=== PATIENT | female | born 1960 | race Caucasian/White ===

== ENCOUNTER 2018-11-13 00:25 | Inpatient (IN) ==
[2018-11-13 01:00] LABS: BILIRUBIN URINE NEGATIVE (NEGATIVE); BLOOD URINE 4+ (NEGATIVE); CLARITY SL. CLOUDY (CLEAR); COLOR AMBER; GLUCOSE URINE NEGATIVE (NEGATIVE); KETONE URINE 2+(Moderate) mg/dL (NEGATIVE); LEUKOCYTES URINE TRACE (NEGATIVE); NITRITE URINE NEGATIVE (NEGATIVE); UROBILINOGEN URINE 1 mg/dL
[2018-11-13 01:02] LABS: UR AMPHETAMINES QUAL NONE DETECTED (NONE DETECT); UR BARBITUATES QUAL NONE DETECTED (NONE DETECT); UR BENZODIAZEPIN QUAL PRESUMPTIVE POSITIVE (NONE DETECT); UR CANNABINOIDS QUAL NONE DETECTED (NONE DETECT); UR COCAINE QUAL NONE DETECTED (NONE DETECT); UR METHADONE QUAL NONE DETECTED (NONE DETECT); UR METHAMPHETAMINE QUAL NONE DETECTED (NONE DETECT); UR OPIATES QUAL NONE DETECTED (NONE DETECT); UR OXYCODONE QUAL NONE DETECTED (NONE DETECT); UR PCP QUAL NONE DETECTED (NONE DETECT); UR PROPOXYPHENE QUAL NONE DETECTED (NONE DETECT); UR TCA QUAL NONE DETECTED (NONE DETECT)
[2018-11-13 01:03] LABS: BE 17.6 mmoll (-3.0-3.0); BLOOD TYPE ARTERIAL; HCO3-(ACT) 38.6 mmoll (20.0-26.0); METHB 0.7 % (0.0-1.5); O2(CT) 17.9 mL/dL (15.0-23.0); O2HB 96.7 % (95.0-99.0); PCO2(98.6) 36 mmHg (35-45); PO2(98.6) 211 mmHg (60-100); SAMPLE BLOOD; THB 12.8 g/dL (11.5-17.4)
[2018-11-13 01:05] LABS: ALLEN TEST YES; MODALITY NRB; pH(98.6) 7.65 (7.35-7.45)
[2018-11-13 01:17] LABS: URINE RBC TNTC /HPF (<10)
[2018-11-13 01:18] LABS: URINE BACTERIA 4+ /HFP; URINE EPITHELIAL CELLS <10 /HPF (<10); URINE SOURCE CATH; URINE WBC <10 /HPF (<10)
[2018-11-13 02:26] LABS: BASO# 0.02 X1000 (0.0-0.2); BASO% 0.1 % (0.0-0.8); EOS# 0.05 X1000 (0.0-0.7); EOS% 0.3 % (0.0-10.0); HEMATOCRIT 44.4 % (37.0-47.0); HEMOGLOBIN 14.1 g/dL (12.0-16.0); IMM GRAN# 0.08 X1000 (0.0-0.04); IMM GRAN% 0.4 % (0.0-0.5); LYMPH# 1.65 X1000 (1.2-3.4); MCH 27.4 PG (27-31); MCHC 31.8 g/dL (33-37); MCV 86.4 FL (81-99); MONO# 1.72 X1000 (0.11-0.59); MONO% 9.3 % (1.7-9.3); MPV 10.9 FL (7.4-10.4); NEUT# 14.88 X1000 (1.4-6.5); NEUT% 80.9 % (42.2-75.2); PLT 242 X1000 (130-400); RBC 5.14 XMIL (4.2-5.4); RDW 13.3 % (11.5-14.5)
[2018-11-13 02:53] LABS: AGAP 21; ALBUMIN 4.5 g/dL (3.5-5.0); ALKALINE PHOSPHATASE 149 U/L (32-104); BUN 36 mg/dL (8-22); CHLORIDE 88 mmol/L (98-107); CK TOTAL 875 U/L (24-173); COSMO 290; CREATININE 0.8 mg/dL (0.5-0.9); GLUCOSE 143 mg/dL (70-104); GOT 30 U/L (10-30); GPT 13 U/L (10-36); POTASSIUM 3.3 mmol/L (3.5-5.1); SODIUM 140 mmol/L (136-145); TCO2 31 mmol/L (25-35); TOTAL PROTEIN 8.4 g/dL (6.3-8.3)
[2018-11-13] MEDS ORDERED: NS 1,000 ML IV ONE ×2 (03:39→12:44)
[2018-11-13] MEDS ORDERED: ROCEPHIN 2 GM in NS 50 ML IV ONE (05:20)
[2018-11-13] MEDS ORDERED: ROCEPHIN ONE (05:43)
[2018-11-13] MEDS ORDERED: NS 100 ML ONE (05:45)
--- NOTE | 2018-11-13 05:58 | Diag Imaging Result Doc PS360 ---
EXAM: CT HEAD W/O CONTRAST HISTORY: unresponsive TECHNIQUE: CT head without contrast COMPARISON: None. FINDINGS: No parenchymal hemorrhage. No epidural or subdural hematoma. No subarachnoid hemorrhage. There is minimal atrophy. No mass identified on this noncontrasted exam. No hydrocephalus. No sinus opacification. Minimal left posterior scalp soft tissue swelling. IMPRESSION: Small left scalp hematoma, but no intracranial injury. A preliminary report was given at 12:50 AM This exam was performed using automated exposure control, adjustment of mA or kV according to patient size, and/or use of iterative reconstruction technique. Electronically signed by Mike Crowder 11/13/2018 5:56 AM
--- NOTE | 2018-11-13 06:03 | Diag Imaging Result Doc PS360 ---
EXAM: CHEST-PORTABLE HISTORY: ams - found down TECHNIQUE: Chest single view COMPARISON: None. FINDINGS: The lungs are well expanded. The heart is not enlarged. There is a left-sided portacatheter. No pneumothorax. The vessels are not distended. There are no infiltrates. No effusion identified. There are surgical clips in the right axilla. No lung nodules identified. There has been surgery to the lower neck. IMPRESSION: No acute abnormality. Electronically signed by Mike Crowder 11/13/2018 6:01 AM
--- NOTE | 2018-11-13 06:08 | PROVIDER DOCUMENTATION ---
This chart was entered by Clarissa Miranda Scribe, acting as scribe for Jayro Orantes MD. HPI-General Adult - General Stated Complaint: UNRESPONSIVE Time Seen by Provider: 11/13/18 00:30 Source: EMS Unable to obtain history due to:: urgency - History of Present Illness -Gen Adult Nature of Presenting Problems: pt is a 61 yr old female presenting via EMS, EMS was called when pt was found unresponsive in the floor by a neighbor, enroute to ER EMS reports pt was having seizure. upon arrival to ER pt is minimally responsive to painful stimuli , no verbal or eye opening response. pt unable to provide any information, no family with pt Onset/Duration: reports: unsure Timing: reports: still present Review of Systems - Adult - REVIEW OF SYSTEMS - ADULT ROS:: unobtainable per condition Constitutional: reports: no symptoms reported Eyes: reports: no symptoms reported Ears, Nose, Mouth & Throat: reports: no symptoms reported Cardiovascular: reports: no symptoms reported Respiratory: reports: no symptoms reported Gastrointestinal: reports: no symptoms reported Genitourinary: reports: no symptoms reported Musculoskeletal: reports: no symptoms reported Integumentary: reports: no symptoms reported Neurological: reports: no symptoms reported Psychiatric: reports: no symptoms reported Endocrine: reports: no symptoms reported Hematologic/Lymphatic: reports: no symptoms reported Allergic/Immunologic: reports: no symptoms reported All Other Systems: Reviewed and Negative Past History - Adult - PAST MEDICAL HISTORY-ADULT Review of Records: reports: Nursing Assessment Review Major Childhood Illnesses: reports: denies history Cardiovascular: reports: denies history Respiratory: reports: denies history Gastrointestinal: reports: denies history Obstetrical/Gynecological: reports: denies history Genitourinary: reports: denies history Musculoskeletal: reports: denies history Neurological: reports: denies history Endocrine/Immune: reports: denies history Other Conditions: reports: denies history - IMMUNIZATION STATUS Childhood Immunizations: See Nurse Assessment Flu Vaccine: See Nurse Assessment - FAMILY HISTORY Family History: reviewed, not pertinent - SOCIAL HISTORY Living Situation: alone Physical Exam-General - PHYSICAL EXAM-ADULT Exam Limited by: unresponsive Initial Vital Signs Reviewed: Yes - CONSTITUTIONAL General Appearance: appears well, mild distress, slow to respond - EYES Eyes: PERRL/EOMI (both pupils are dilated and with right lateral gaze) - HEAD, EARS, NOSE, MOUTH & THROAT HENMT: normocephalic/atraumatic, moist mucous membranes, normal ENT inspection - NECK Neck: non-tender, full range of motion, supple - RESPIRATORY Respiratory: chest non-tender, lungs clear, normal breath sounds, no pleuratic chest pain - CARDIOVASCULAR Cardiovascular: normal peripheral pulses, regular rate, rhythm, no edema, no gallop, no JVD - CHEST (BREASTS) Chest/Breast: other (Bilateral mastectomies) - GASTROINTESTINAL (ABDOMEN) Abdominal Exam: non tender - MUSCULOSKELETAL Back Exam: normal inspection, no CVA tenderness Extremity: normal range of motion, non-tender - SKIN Integumentary: normal color, normal turgor - NEUROLOGIC Neurologic: other (unable to cooperate with exam but seems rigid and is obviouly febrile, moves all 4s) - PSYCHIATRIC Psych/Mental Status: disheveled. negative: normal mood/affect, normal thought content, normal thought process, oriented x 3 Progress - PLAN OF CARE/RESULTS Progress/Plan/Lab Results: Vital Signs - 8 hr 11/13/18 00:20 Temperature 101.3 F H Pulse Rate 89 Respiratory Rate 25 H Blood Pressure 154/88 O2 Sat by Pulse Oximetry 100 Laboratory Results - last 24 hr 11/13/18 11/13/18 11/13/18 00:07 00:20 00:20 WBC RBC Hgb Hct MCV MCH MCHC RDW Std Deviation Plt Count MPV Immature Gran % (Auto) Neut % (Auto) Lymph % (Auto) [place] % (Auto) Eos % (Auto) Baso % (Auto) Immature Gran # (Auto) Neut # (Auto) Lymph # (Auto) [place] # (Auto) Eos # (Auto) Baso # (Auto) Specimen Type ARTERIAL Sample Site L RADIAL pH 7.65 H* pCO2 36 pO2 211 H HCO3 38.6 H Base Excess 17.6 H Oxyhemoglobin 96.7 ABG O2 Sat (Calculated) 17.9 ABG O2 Saturation 98.0 ABG Carboxyhemoglobin 0.60 ABG Methemoglobin 0.7 [place] Test YES A-a O2 Difference 457.0 Total Hemoglobin 12.8 Lactate 2.30 H Liter Flow 15.0 Blood Gas Modality NRB FiO2 % 100.0 Sodium Potassium Chloride Carbon Dioxide Anion Gap BUN Creatinine BUN/Creatinine Ratio Glucose Calculated Osmolality Calcium Total Bilirubin AST ALT Alkaline Phosphatase Creatine Kinase Total Protein Albumin Globulin Albumin/Globulin Ratio Urine Source CATH Urine Color ARIEL Urine Clarity SL. CLOUDY A Urine pH 8.0 Ur Specific [place] 1.010 Urine Protein 3+(500 mg/dL) A Urine Ketones 2+(Moderate) A Urine Blood 4+ Urine Nitrite NEGATIVE Urine Bilirubin NEGATIVE Urine Urobilinogen 1 Urine Microscopic RBC TNTC A Urine WBC TRACE A Urine Microscopic WBC <10 Ur Epithelial Cells <10 Urine Bacteria 4+ Urine Glucose NEGATIVE Urine Opiates Screen NONE DETECTED Ur Oxycodone Screen NONE DETECTED Urine Methadone Screen NONE DETECTED U Propoxyphene Qual NONE DETECTED Ur Barbituates Screen NONE DETECTED Ur Tricyclics Screen NONE DETECTED Ur Phencyclidine Scrn NONE DETECTED Ur Amphetamines Screen NONE DETECTED U Methamphetamines Scrn NONE DETECTED U Benzodiazepines Scrn PRESUMPTIVE POSITIVE A Urine Cocaine Screen NONE DETECTED U Cannabinoids Screen NONE DETECTED 11/13/18 11/13/18 01:08 01:08 WBC 18.40 H RBC 5.14 Hgb 14.1 Hct 44.4 MCV 86.4 MCH 27.4 MCHC 31.8 L RDW Std Deviation 13.3 Plt Count 242 MPV 10.9 H Immature Gran % (Auto) 0.4 Neut % (Auto) 80.9 H Lymph % (Auto) 9.[address] % (Auto) 9.3 Eos % (Auto) 0.3 Baso % (Auto) 0.1 Immature Gran # (Auto) 0.08 H Neut # (Auto) 14.88 H Lymph # (Auto) 1.65 [place] # (Auto) 1.72 H Eos # (Auto) 0.05 Baso # (Auto) 0.02 Specimen Type Sample Site pH pCO2 pO2 HCO3 Base Excess Oxyhemoglobin ABG O2 Sat (Calculated) ABG O2 Saturation ABG Carboxyhemoglobin ABG Methemoglobin [place] Test A-a O2 Difference Total Hemoglobin Lactate Liter Flow Blood Gas Modality FiO2 % Sodium 140 Potassium 3.3 L Chloride 88 L Carbon Dioxide 31 Anion Gap 21 BUN 36 H Creatinine 0.8 BUN/Creatinine Ratio 45 Glucose 143 H Calculated Osmolality 290 Calcium 11.0 H Total Bilirubin 0.60 AST 30 ALT 13 Alkaline Phosphatase 149 H Creatine Kinase 875 H Total Protein 8.4 H Albumin 4.5 Globulin 4.0 Albumin/Globulin Ratio 1.0 Urine Source Urine Color Urine Clarity Urine pH Ur Specific [place] Urine Protein Urine Ketones Urine Blood Urine Nitrite Urine Bilirubin Urine Urobilinogen Urine Microscopic RBC Urine WBC Urine Microscopic WBC Ur Epithelial Cells Urine Bacteria Urine Glucose Urine Opiates Screen Ur Oxycodone Screen Urine Methadone Screen U Propoxyphene Qual Ur Barbituates Screen Ur Tricyclics Screen Ur Phencyclidine Scrn Ur Amphetamines Screen U Methamphetamines Scrn U Benzodiazepines Scrn Urine Cocaine Screen U Cannabinoids Screen Orders Category Date Time Status [facility] Insertion ORDERED Care 11/13/18 00:26 Active Saline Loc NOW Care 11/13/18 00:26 Active CHEST-PORTABLE [RAD] Stat Exams 11/13/18 01:[address] HEAD W/O CONTRAST [CT] Stat Exams 11/13/18 00:25 Taken ABG [RESP] Routine Lab 11/13/18 00:07 Completed CBC WITH DIFF [HEME] Stat Lab 11/13/18 01:08 Completed CK TOTAL [CHEM] Stat Lab 11/13/18 01:08 Completed COMPREHENSIVE METABOLIC PANEL [CHEM] Stat Lab 11/13/18 01:[address] W/POSS RFLX CULT [URINALYSIS] Stat Lab 11/13/18 00:20 Completed URINE CULTURE [RM] Routine Lab 11/13/18 01:18 [address] DRUG SCREEN [address] Stat Lab 11/13/18 00:20 Completed Result Diagrams: 11/13/18 01:08 11/13/18 01:08 - CONSULTS/PCP/HOSPITALIST Notification #1 *Consult/PCP/Hospitalist*: Dr Zimmer Consult Disposition: Admit Procedures - LUMBAR PUNCTURE Consent Form Signed?: No Time-Out Verification Completed?: Yes Patient Position: Lying in position Insertion Site: L4-5 Site Prep: Kit Utilized, Betadine Anesthetic: 1% Procedure Successful?: No Departure - Departure Date of Disposition Decision: 11/13/18 Time of Disposition Decision: 06:06 DIAGNOSIS: Altered mental state Disposition: ADMITTED INPATIENT 09 Certified Medical Emergency: Emergent Condition: Serious Referrals and Follow-Ups: UNKNOWN, [Primary Care Provider] - - Critical Care Note This patient required my direct & personal management of CC.: Yes Total Time (mins): 90 Critical Care Statement: This patient required my direct personal management to treat or rule out processes, the absence of which, could potentiallly result in sudden, clinically significant life or limb threatening deterioration. Attestation - Physician/ LINDSEY Attestation The physician spent face to face time with patient:: Yes Advanced Practice Provider documentation review:: Supervising physician onsite and consulted in the evaluation and care of this patient. The physician did have a face to face encounter with the patient. This chart was documented by the indicated scribe, (Clarissa Miranda Scribe) and accurately reflects the services I performed and decisions made by me, Jayro Orantes MD, as attested by the provider's signature.
[2018-11-13] MEDS ORDERED: TYLENOL PR ONE (07:45)
[2018-11-13] MEDS ORDERED: VANCOMYCIN IV PER PHARMACY MISC SCH (08:45)
[2018-11-13] MEDS ORDERED: VANCOMYCIN 1 GM/NS 1 GM/250 ML IVPB IV ONE ×2 (09:00→12:00)
[2018-11-13] MEDS ORDERED: ATIVAN IV ONE ×2 (09:15→09:35)
[2018-11-13] MEDS ORDERED: OFIRMEV 1000 MG/ISOTONIC SOLN 1,000 MG/100 ML BOTTLE IV PRN (09:34)
[2018-11-13] MEDS ORDERED: MAXIPIME 2 GM in NS 100 ML IV SCH (09:45)
--- NOTE | 2018-11-13 11:36 | Diag Imaging Result Doc PS360 ---
EXAM: LUMBAR PUNCT W/FLURO GUIDE HISTORY: unresponsive TECHNIQUE: Fluoroscopic guided lumbar puncture COMPARISON: None. FINDINGS: Patient was unresponsive and unable to give consent. The emergency room indicated this was an emergency procedure and needed to be performed. The lower back was cleaned and draped in the normal fashion. Lidocaine was used as a local anesthetic. A 22-gauge spinal needle was advanced into the spinal canal. Four separate tubes were used to collect spinal fluid. Over a centimeter of spinal fluid was in each tube. These were sent to the laboratory for analysis. The needle was withdrawn. IMPRESSION: Emergency fluoroscopic guided lumbar puncture with no immediate postprocedural complication. Electronically signed by Mike Crowder 11/13/2018 11:34 AM
[2018-11-13] MEDS: NS 1,000 ML IV SCH (13:00)
--- NOTE | 2018-11-13 13:30 | HISTORY AND PHYSICAL ---
CHIEF COMPLAINT: Unresponsive and seizure. HISTORY OF PRESENT ILLNESS: This is a 58-year-old female who presented to the emergency room via EMS. According to the chart, the patient was found unresponsive on the floor. Therefore, EMS was called. She reportedly had a tonic-clonic seizure per ambulance personnel en route to the hospital. At the time of arrival to the ER, she was in a position on her right side. Medicine bottles were brought in with the patient that were filled at the [facility] in 2014. She had Phenergan and Arimidex. There are no family or friends present at this time. PAST MEDICAL HISTORY: Unknown. PAST SURGICAL HISTORY: She has had bilateral mastectomies. She has had a left port placement and surgery to the lower neck per chest x-ray. ALLERGIES: Unknown. HOME MEDICATIONS: Unknown. SOCIAL HISTORY: Unknown. REVIEW OF SYSTEMS: Unable to obtain. HOME MEDICATIONS: Unknown. PHYSICAL EXAMINATION: GENERAL: This is a female who is lying flat on her right side in the emergency room in no distress. EYES: Pupils are dilated with a right lateral gaze. She does not respond to visual threats. Sclerae are anicteric. HEENT: Head is normocephalic, atraumatic. Mucous membranes are moist. NECK: Supple with trachea midline. CARDIOVASCULAR: She is regular rate and rhythm. S1 and S2 are appreciated. No murmurs. She does have peripheral pulses palpable x4 extremities. PULMONARY: Breath sounds are clear with no increased work of breathing noted. Chest rises and falls symmetrically with respiration. ABDOMEN: Nondistended. Soft with bowel sounds in all 4 quadrants. SKIN: Warm and dry. She has bruises noted to her bilateral knees. She does have some abrasions to the top of both feet just above her toes with redness to her right elbow area and to the tops of both hands. She does have an incision on her chest and bilateral mastectomies are noted. There are no rashes noted at this time. NEUROLOGIC: The pupils are dilated with a right lateral gaze. She does not respond to visual or tactile threat. She is lying on her right side in a position. She does draw into a tighter position to pain or any manipulation. LABORATORY: 1. WBC is 18.4 with a hemoglobin 14.1, hematocrit 44.4, and platelets 242,000. Sodium is 140, potassium 3.3, BUN 36, creatinine 0.8 with a glucose of 143. Alkaline phosphatase is 149. CPK is 875. Urinalysis is positive for 3+ protein, 2+ ketones, 4+ blood, too numerous to count red blood cells, less than 10 microscopic white blood cells and epithelial cells. She does have 4+ bacteria. Urine culture is pending. Urine drug screen is presumptive positive for benzodiazepines. Blood cultures and urine cultures have been obtained. 2. CT of the head reveals a small left scalp hematoma but no intracranial injury. No parenchymal hemorrhage no epidural or subdural hematoma. No subarachnoid hemorrhage. There is minimal atrophy. No mass is identified on this noncontrast exam. No hydrocephalus. No sinus opacification. Minimal left posterior scalp soft tissue swelling. 3. Chest x-ray revealed no acute abnormality. Lungs are well expanded. Heart is not enlarged. There is a left-sided Port-A-Cath. No pneumothorax. Vessels are not distended. There are no infiltrates. No effusion identified. There are surgical clips in the right axilla. No lung nodules identified. There has been surgery to the lower neck. ASSESSMENT AND PLAN: 1. Unresponsive. 2. Metabolic encephalopathy. 3. Fever. 4. Leukocytosis. 5. Hypokalemia. 6. Mild rhabdomyolysis. 7. Hyperkalemia. PLAN: The patient will be admitted to ICU at [place]. She will be transferred to [facility] ICU once a bed becomes available. We will continue to give supplemental oxygen. We will monitor neuro checks. We will monitor telemetry. I have discussed the patient with DR. Lukas Sinha, Infectious Disease. We will give vancomycin dosed per pharmacy as well as cefepime 2 g IV q.8 hours. We will order a lumbar puncture under fluoro with Radiology. We will monitor for seizure precautions. We will order Ativan p.r.n. seizure activity. We will consult Neurology. We will obtain a CBC, CMP, magnesium in the morning. Of course, she will remain NPO. We will attempt to find any further information out on this patient. Medication bottles were from the [facility]. We will attempt to call their pharmacy. Further treatments pending hospital course. Dictated by RAY Morales for Wes Hunt MD This chart was documented by, RAY Morales and accurately reflects the services performed, treatment plan and medical decisions as attested by the providers signature Wes Hunt MD. cc: RAY Morales MD
[2018-11-13] MEDS: MAXIPIME 2 GM in NS 100 ML IV SCH ×2 (14:05→22:58)
[2018-11-13] MEDS: PROTONIX IV SCH (14:09)
[2018-11-13 15:23] LABS: APPEARANCE CLEAR
[2018-11-13 15:24] LABS: GLUCOSE CSF 94 mg/dL (39-75); PROTEIN CSF 49.2 mg/dL (15-45)
[2018-11-13 15:36] LABS: RBC BF 186 /cumm; WBC BF 3 /cumm
[2018-11-13 16:05] LABS: BASO# 0.01 X1000 (0.0-0.2); BASO% 0.1 % (0.0-0.8); HEMATOCRIT 35.1 % (37.0-47.0); IMM GRAN# 0.06 X1000 (0.0-0.04); IMM GRAN% 0.4 % (0.0-0.5); LYMPH# 1.88 X1000 (1.2-3.4); MCH 27.8 PG (27-31); MCHC 31.3 g/dL (33-37); MCV 88.6 FL (81-99); MONO# 1.56 X1000 (0.11-0.59); MONO% 9.9 % (1.7-9.3); MPV 9.9 FL (7.4-10.4); NEUT# 12.17 X1000 (1.4-6.5); NEUT% 77.6 % (42.2-75.2); PLT 191 X1000 (130-400); RBC 3.96 XMIL (4.2-5.4); RDW 13.2 % (11.5-14.5); WBC 15.68 X1000 (4.8-10.8)
[2018-11-13 16:11] LABS: AGAP 12; ALBUMIN 3.5 g/dL (3.5-5.0); ALKALINE PHOSPHATASE 111 U/L (32-104); BUN 29 mg/dL (8-22); CHLORIDE 96 mmol/L (98-107); COSMO 285; CREATININE 0.6 mg/dL (0.5-0.9); ESTIMATED GFR > 60; GLUCOSE 134 mg/dL (70-104); GOT 53 U/L (10-30); GPT 17 U/L (10-36); POTASSIUM 3.3 mmol/L (3.5-5.1); SODIUM 139 mmol/L (136-145); TCO2 31 mmol/L (25-35); TOTAL PROTEIN 6.7 g/dL (6.3-8.3)
[2018-11-13] MEDS ORDERED: CEREBYX IV ONE (17:07)
[2018-11-13] MEDS ORDERED: CEREBYX 1,500 MG in NS 100 ML IV ONE (18:00)
[2018-11-13] MEDS: HUMALOG (PARKWAY) SUBQ SCH ×2 (18:33→21:41)
--- NOTE | 2018-11-13 18:54 | CONSULTATION ---
DATE OF CONSULTATION: 11/13/2018 HISTORY: Ms. Fuchs is 58 years old, and she presented with altered mental state. By report, she was found down, brought by ambulance, and had seizure witnessed and recognized by ambulance personnel in route to the hospital. On arrival here, she was noted to be on the right side with a right gaze. She has continued very poorly responsive and has not spoken or communicated directly. She has not had any further definite clinical seizure recognized. Workup includes noncontrast CT of the head showing small left scalp hematoma with no intracranial findings. Urine drug screen was positive for benzodiazepine. WBC count has been elevated. She has had mildly elevated blood sugars of 130s and 140s. I do not see anything else on the chemistry profile of significance. Spinal fluid showed glucose 94, total protein 49.2, 3 white cells, and 186 red cells. Opening pressure was not recorded. Spinal fluid gram stain report is pending. There is prominent bacteriuria and pyuria with urine culture report pending. She had temperature earlier of 101.4, and recently 99.2. Systolic blood pressures have ranged 140s to 150s. Review of hospital records show she has presented in the past with confusion. She had presentation with respiratory failure in the past. She has previous bilateral mastectomies. PHYSICAL EXAMINATION: On exam now, she is in the right position. Eyes are alternating between straight-ahead and right conjugate gaze. I did not see any rhythmic eye jerking. Limb tone is symmetric. Plantar response is extensor bilaterally. Neck is supple. She grumbled and grunted in response to noxious stimulation but did not speak. She did not communicate beyond that. She did not answer questions or follow commands. Pupils are large at about 6 mm and both react to bright light. Corneal reflex is difficult to security auditor with her vigorous attempt to keep eyes closed, but I believe there is corneal reflex bilaterally. Facial motility is difficult to security auditor, but grimace appears symmetric. She was not attentive to visual field testing or to sensory testing. She was not attentive to individual limb or muscle exam. 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 I will order EEG and empirically load with fosphenytoin. We can follow phenytoin levels and adjust dose as needed. The EEG will be helpful when available. I do not think we need any further brain imaging urgently. Further plans will depend on the CSF culture reports and on her clinical course. Thanks for asking Neurology to see Ms. Fuchs. cc: MD DMITRY Short III
--- NOTE | 2018-11-14 00:33 | HISTORY AND PHYSICAL ---
ADDENDUM: Patient seen and examined by myself in the ER. Full note dictated and discussed with nurse practitioner. Initially, the patient presented to the hospital. She presented as a Leticia Leiva. EMS was called by an unknown source. We will obtain a lumbar puncture, place her on antibiotics, treat for infectious etiology, place her in the ICU, and follow. Certainly, this could also be drug-related. We will monitor for withdrawal. cc: Wes Hunt MD
[2018-11-14] MEDS: NS 1,000 ML IV SCH ×3 (03:08→23:06)
[2018-11-14] MEDS: PROTONIX IV SCH ×2 (03:09→14:10)
[2018-11-14] MEDS ORDERED: ROCEPHIN 2 GM in NS 50 ML IV SCH (06:00)
[2018-11-14] MEDS: VANCOMYCIN 1,500 MG in NS 250 ML IV SCH (06:18)
[2018-11-14] MEDS: MAXIPIME 2 GM in NS 100 ML IV SCH ×3 (06:18→21:08)
[2018-11-14 06:50] LABS: BASO# 0.02 X1000 (0.0-0.2); BASO% 0.2 % (0.0-0.8); EOS# 0.02 X1000 (0.0-0.7); EOS% 0.2 % (0.0-10.0); HEMATOCRIT 32.3 % (37.0-47.0); HEMOGLOBIN 9.7 g/dL (12.0-16.0); IMM GRAN# 0.04 X1000 (0.0-0.04); IMM GRAN% 0.3 % (0.0-0.5); LYMPH# 2.29 X1000 (1.2-3.4); LYMPH% 18.1 % (20.5-51.1); MCH 26.9 PG (27-31); MCV 89.7 FL (81-99); MONO# 1.39 X1000 (0.11-0.59); MPV 10.5 FL (7.4-10.4); NEUT# 8.89 X1000 (1.4-6.5); NEUT% 70.2 % (42.2-75.2); PLT 174 X1000 (130-400); RDW 13.3 % (11.5-14.5); WBC 12.65 X1000 (4.8-10.8)
[2018-11-14 07:05] LABS: AGAP 10; ALBUMIN 3.3 g/dL (3.5-5.0); ALKALINE PHOSPHATASE 94 U/L (32-104); BUN 24 mg/dL (8-22); CALCIUM 8.8 mg/dL (8.8-10.2); CHLORIDE 102 mmol/L (98-107); COSMO 287; CREATININE 0.6 mg/dL (0.5-0.9); ESTIMATED GFR > 60; GLUCOSE 102 mg/dL (70-104); GOT 47 U/L (10-30); GPT 17 U/L (10-36); MAGNESIUM 1.6 mg/dL (1.5-2.7); POTASSIUM 3.1 mmol/L (3.5-5.1); SODIUM 142 mmol/L (136-145); TCO2 30 mmol/L (25-35); TOTAL PROTEIN 6.1 g/dL (6.3-8.3)
[2018-11-14] MEDS: HUMALOG (PARKWAY) SUBQ SCH ×4 (07:20→20:00)
[2018-11-14] MEDS ORDERED: CEREBYX IV SCH (10:30)
[2018-11-14] MEDS: CEREBYX IV SCH ×2 (10:50→23:00)
[2018-11-14] MEDS: NS IV SCH ×2 (10:50→23:00)
[2018-11-14] MEDS: ZOFRAN IV PRN (10:57)
--- NOTE | 2018-11-14 11:37 | EEG REPORT ---
DATE: 11/13/2018 EEG #: [id number]. COMMENT: This is a digitally recorded EEG on a 58-year-old patient with poor responsiveness, clinically apparent seizure yesterday with possible left hemisphere features. FINDINGS: This record is composed of polymorphic and rhythmic theta and delta. There is occasional 7 Hz rhythm centrally and posteriorly, which is not well sustained. Most of the record is 4-6 hertz theta. There is slowing into the delta range at 2-3 hertz with highest amplitude frontally. There is occasional muscle contraction artifact which does not hinder interpretation. No definite epileptiform discharge was identified, and there was no electrographic seizure recorded. INTERPRETATION: Abnormal EEG because of generalized slowing. CORRELATION: This is indicative of a diffuse encephalopathy and is nonspecific. The absence of epileptiform discharges on EEG today does not exclude clinical diagnosis of seizure yesterday. cc: Bernard Patel III, MD
[2018-11-14] MEDS: SODIUM CHLORIDE 0.9% INJ SCH (14:10)
--- NOTE | 2018-11-14 18:20 | PROGRESS NOTE ---
DATE: 11/14/2018 Ms. Fuchs is awake, alert, having appropriate conversation. She is at least partially oriented. She answered questions appropriately. She seems uncertain about several of her home medications, but is adamant that she has not had any benzodiazepines. She is certain that she has not misused medicines. She reports having a question of seizure a few years ago, but does not report taking medicine for seizure management then. Her phenytoin levels have been low in therapeutic range here, but she seems clinically stable and improved. I think we can continue current doses, follow levels, hope to see continued improvement. I told her I think we will likely recommend continuing medicine for seizure control after discharge. I will be glad to follow her as an outpatient, if needed. Thanks for asking Neurology to see Ms. Fuchs. cc: Bernard Patel III, MD
[2018-11-14] MEDS: TYLENOL PO PRN (20:06)
[2018-11-15] MEDS: PROTONIX IV SCH ×2 (01:16→13:53)
[2018-11-15] MEDS: VANCOMYCIN 1,500 MG in NS 250 ML IV SCH ×2 (01:16→18:52)
[2018-11-15] MEDS: SODIUM CHLORIDE 0.9% INJ SCH ×2 (01:17→13:53)
--- NOTE | 2018-11-15 01:17 | PROGRESS NOTE ---
DATE: 11/14/2018 SUBJECTIVE: Patient is still unresponsive. She is calm. PHYSICAL EXAMINATION: Vital Signs: Temperature 98.9 degrees, pulse 70, respiratory 20, BP 114/48, saturation 97% on 3 L. General: She is in no current distress. HEENT: Normocephalic. Neck: Supple. CARDIOVASCULAR: Regular rate. Chest: Clear. No crackles. Abdomen: Normal. Extremities: Moves all extremities. No edema. Neurologic: No focal changes. She still does not respond to verbal stimuli. ASSESSMENT: 1. Leukocytosis. 2. Acute delirium of unknown origin. 3. Metabolic encephalopathy. 4. Fever. 5. Hypokalemia. PLAN: We will continue patient in the hospital. She is waking up a little bit better. She was able to speak to the staff in 1 to 2 words last night. We will continue to follow. Continue antibiotics. Further orders as needed. cc: Wes Hunt MD
[2018-11-15 05:48] LABS: BASO# 0.02 X1000 (0.0-0.2); BASO% 0.2 % (0.0-0.8); EOS# 0.14 X1000 (0.0-0.7); EOS% 1.6 % (0.0-10.0); HEMATOCRIT 28.2 % (37.0-47.0); HEMOGLOBIN 8.8 g/dL (12.0-16.0); IMM GRAN# 0.02 X1000 (0.0-0.04); IMM GRAN% 0.2 % (0.0-0.5); LYMPH# 2.02 X1000 (1.2-3.4); LYMPH% 22.6 % (20.5-51.1); MCH 27.9 PG (27-31); MCHC 31.2 g/dL (33-37); MCV 89.5 FL (81-99); MONO# 0.76 X1000 (0.11-0.59); MONO% 8.5 % (1.7-9.3); MPV 10.2 FL (7.4-10.4); NEUT# 5.96 X1000 (1.4-6.5); NEUT% 66.9 % (42.2-75.2); PLT 147 X1000 (130-400); RBC 3.15 XMIL (4.2-5.4); RDW 12.9 % (11.5-14.5); WBC 8.92 X1000 (4.8-10.8)
[2018-11-15 06:07] LABS: AGAP 9; BUN 19 mg/dL (8-22); CALCIUM 8.5 mg/dL (8.8-10.2); CHLORIDE 105 mmol/L (98-107); COSMO 282; CREATININE 0.5 mg/dL (0.5-0.9); ESTIMATED GFR > 60; GLUCOSE 77 mg/dL (70-104); POTASSIUM 3.1 mmol/L (3.5-5.1); SODIUM 141 mmol/L (136-145); TCO2 27 mmol/L (25-35)
[2018-11-15] MEDS: MAXIPIME 2 GM in NS 100 ML IV SCH ×3 (06:23→22:46)
[2018-11-15] MEDS ORDERED: KLOR-CON PO ONE (06:39)
[2018-11-15] MEDS: HUMALOG (PARKWAY) SUBQ SCH ×4 (07:27→20:40)
[2018-11-15] MEDS: CEREBYX IV SCH ×2 (10:36→23:33)
[2018-11-15] MEDS: NS 1,000 ML IV SCH ×2 (10:36→18:12)
[2018-11-15] MEDS: NS IV SCH ×2 (10:36→23:33)
[2018-11-15] MEDS ORDERED: MISC. PHARMACY COMMUNICATION SCH (11:00)
[2018-11-15] MEDS: ZOFRAN IV PRN ×2 (11:24→20:39)
[2018-11-15] MEDS: SUBOXONE 2 MG/0.5 MG FILM SL SCH (14:23)
[2018-11-15] MEDS: TYLENOL PO PRN (18:12)
[2018-11-15] MEDS ORDERED: NICODERM PATCH TD PRN (19:59)
--- NOTE | 2018-11-16 01:09 | PROGRESS NOTE ---
DATE: 11/15/2018 SUBJECTIVE: Patient is much more awake, alert today. She is much improved. She is able to talk in complete sentences. Does not remember anything of the events that led to her coming to the hospital. Denies any chest pains. Denies any fevers or chills. Denies any infectious symptoms prior to this event. PHYSICAL EXAMINATION: Vital Signs: Temperature 98.9 degrees, pulse 70, respiratory 20, BP 114/48, saturation 97% on 3 L. General: Patient is awake, alert. She is currently in no distress. HEENT: Normocephalic. Neck: Supple. Cardiovascular: Regular rate. Chest: Clear. Abdomen: Soft. Extremities: Moves all extremities. ASSESSMENT: 1. Metabolic encephalopathy, appears resolved. 2. Fever, resolved. 3. Leukocytosis, resolved. 4. Hypokalemia. We will replace. 5. Hypoxemia. PLAN: Continue patient in the hospital. Continue in ICU tonight. We will hopefully transition out to the floor tomorrow and maybe even home. Currently, there are no beds on the floor to transfer her out. Overall, she has improved. We will continue antibiotics. Uncertain etiology of this current event although medication overusage certainly could be the culprit. cc: Wes Hunt MD
[2018-11-16] MEDS: PROTONIX IV SCH (02:13)
[2018-11-16] MEDS: SUBOXONE 2 MG/0.5 MG FILM SL SCH (02:14)
[2018-11-16] MEDS: SODIUM CHLORIDE 0.9% INJ SCH (02:14)
[2018-11-16] MEDS: TYLENOL PO PRN (05:06)
[2018-11-16] MEDS: MAXIPIME 2 GM in NS 100 ML IV SCH (05:07)
[2018-11-16] MEDS ORDERED: VANCOMYCIN 1,500 MG in NS 250 ML IV SCH (06:00)
[2018-11-16 06:04] LABS: BASO# 0.05 X1000 (0.0-0.2); BASO% 0.5 % (0.0-0.8); EOS# 0.33 X1000 (0.0-0.7); EOS% 3.1 % (0.0-10.0); HEMATOCRIT 29.9 % (37.0-47.0); HEMOGLOBIN 9.4 g/dL (12.0-16.0); IMM GRAN# 0.02 X1000 (0.0-0.04); IMM GRAN% 0.2 % (0.0-0.5); LYMPH# 1.78 X1000 (1.2-3.4); LYMPH% 16.6 % (20.5-51.1); MCH 27.7 PG (27-31); MCHC 31.4 g/dL (33-37); MCV 88.2 FL (81-99); MONO% 8.4 % (1.7-9.3); MPV 10.6 FL (7.4-10.4); NEUT# 7.63 X1000 (1.4-6.5); NEUT% 71.2 % (42.2-75.2); PLT 176 X1000 (130-400); RBC 3.39 XMIL (4.2-5.4); RDW 12.9 % (11.5-14.5); WBC 10.71 X1000 (4.8-10.8)
[2018-11-16] MEDS: HUMALOG (PARKWAY) SUBQ SCH ×3 (06:32→12:47)
[2018-11-16] MEDS ORDERED: GLUCOPHAGE PO SCH (08:00)
[2018-11-16] MEDS ORDERED: SUBUTEX SL SCH (09:00)
[2018-11-16] MEDS ORDERED: PRINIVIL PO SCH (09:00)
[2018-11-16] MEDS ORDERED: DUONEB (A & A) INH PRN (09:19)
[2018-11-16] MEDS: NEURONTIN PO SCH ×2 (09:38→12:46)
[2018-11-16] MEDS: ZOFRAN IV PRN (09:38)
[2018-11-16] MEDS: DILANTIN PO SCH ×2 (09:41→12:46)
[2018-11-16 12:40] VITALS: BP 114/57
[2018-11-16] MEDS ORDERED: PROTONIX PO SCH (21:00)
--- NOTE | 2018-11-17 23:34 | DISCHARGE SUMMARY ---
ADMISSION DATE: 11/13/2018 DISCHARGE DATE: 11/16/2018 DIAGNOSES: 1. Unresponsive, resolved. 2. Acute delirium of unknown origin. 3. Metabolic encephalopathy. 4. Fever. 5. Leukocytosis. 6. Hypokalemia. 7. Questionable seizure. 8. Hypoxemia resolved. DIAGNOSTIC: 1. 11/13/2018 CT of the head reveals small left scalp hematoma but no intracranial injury. 2. Chest x-ray revealed no acute abnormality . 3. 11/13/2018 EEG revealed abnormal EEG because of generalized slowing. This is indicative of a diffuse encephalopathy and is nonspecific. The absence of epileptiform discharges on EEG today does not exclude clinical diagnosis of seizure yesterday. 4. Microbiology blood cultures x2 revealed no growth after 48 hours. 5. Urine culture revealed no growth. 6. Lumbar puncture routine culture revealed no growth and Gram stain revealed no bacteria, white blood cells or epithelial cells seen. DISCHARGE MEDICATIONS: Lipitor 40 mg p.o. daily, Subutex 8 mg sublingual 3 times a day, Coreg 3.125 mg b.i.d., Celexa 20 mg p.o. daily, gabapentin 800 mg t.i.d., lisinopril 20 mg daily, Glucophage 500 mg daily, Dilantin 100 mg t.i.d., Zantac 150 daily, Omnicef 300 mg p.o. b.i.d. for 5 days, Dilantin 100 mg p.o. t.i.d., duo nebs as needed. The patient was given prescriptions for DuoNeb, Omnicef and Dilantin. She was instructed to follow up with her primary care physician next week. The office is closed today. She needs to call Monday to schedule an appointment for followup. The patient is in a pain clinic at the [facility], she states she was instructed that she needs to follow up with them as scheduled for her Subutex prescriptions . She is being discharged in stable condition with her father. TIME SPENT: Greater than 30 minutes. Dictated by RAY Morales for Wes Hunt MD This chart was documented by, RAY Morales and accurately reflects the services performed, treatment plan and medical decisions as attested by the providers signature Wes Hunt MD. cc: RAY Morales MD MTDD
--- NOTE | 2018-11-18 01:35 | DISCHARGE SUMMARY ---
ADMISSION DATE: 11/13/2018 DISCHARGE DATE: 11/16/2018 ADDENDUM: Patient seen and examined by myself. Full note dictated and discussed with nurse practitioner. On discharge, patient is awake, alert. She is in no distress. She states that she feels back to normal. We will discharge her home on Dilantin. She will follow up outpatient with primary care. Please see full note. cc: Wes Hunt MD
== END 2018-11-16 15:23 | disposition home or self-care (01) | DRG 100 ==
LOC: EDBD 00:25 → P.ED 00:25 → P.ICU 11:34
PROVIDERS: ATTEND Family Medicine
CPT/HCPCS: 51702; 62270; 70450; 71010; 71045; 77003; 80048; 80053; 80104; 80185; 80202; 80301; 80305; 81001; 82550; 82805; 82945; 82948; 83605; 83735; 84157; 85025; 87040; 87070; 87088; 87205; 89050; 94640; 95816; 96361; 96365; 96367; 96375; 99285; A9270; C9113; G0431; G0434; G0477; J0692; J0696; J1815; J2060; J2405; J3370; J7030; J7050; Q2009; S0164; XXXXX

== ENCOUNTER 2019-01-29 17:36 | Inpatient (IN) ==
--- NOTE | 2019-01-29 18:10 | PROVIDER DOCUMENTATION ---
HPI-Neurological Disorder - General Chief Complaint: Seizure Stated Complaint: fall Time Seen by Provider: 01/29/19 18:05 Source: EMS Unable to obtain history due to:: altered Allergies/Adverse Reactions: Patient Allergies Allergy/AdvReac Type Severity Reaction Status Date / Time hydrocodone bitartrate * AdvReac ITCHING Verified 11/13/18 10:58 [From Lortab] Home Medications: Home Medication List Medication Instructions Recorded Confirmed Last Taken Type Buprenorphine S.l. [Subutex] 8 mg SL TID 03/19/18 11/13/18 03/30/18 05:00 History Citalopram Hydrobromide [Celexa] 20 mg PO DAILY 03/19/18 11/13/18 03/30/18 05:00 History LISINOpril [Prinivil] 20 mg PO DAILY 03/19/18 11/13/18 03/29/18 09:00 History Metformin [Glucophage] 500 mg PO DAILY 03/19/18 11/13/18 03/30/18 05:00 History Atorvastatin Calcium 40 mg DAILY 11/13/18 11/13/18 Unknown History Benzonatate [Tessalon Perle] 100 mg TID PRN 11/13/18 11/13/18 Unknown History Carvedilol [Coreg] 3.125 mg BID 11/13/18 11/13/18 Unknown History Gabapentin 800 mg TID 11/13/18 11/13/18 Unknown History Promethazine HCl 25 mg Q4-6H PRN PRN 11/13/18 11/13/18 Unknown History Ranitidine HCl 150 mg DAILY PRN 11/13/18 11/13/18 Unknown History Albuterol 2.5MG/Ipratrop 0.5MG 3 ml INH TID PRN PRN #90 neb 11/16/18 Unknown Rx [Duoneb (A & A)] CefDINIR [Omnicef] 300 mg PO BID #10 cap 11/16/18 Unknown Rx Phenytoin Sodium Extended 100 mg PO TID #90 cap 11/16/18 Unknown Rx [Dilantin] - History of Present Illness-Neuro Nature of Presenting Problem: patient reported having seizure, in the ER she was confused, oriented x 2, pupils were dilated, patien appeared somnolent. buise and abrasion on nose. Onset/Duration: reports: abrupt, just prior to arrival Timing: reports: still present Any recent trauma/injury?: reports: minor Character of Deficits: reports: altered sensation Cognitive Baseline: alert but confused Similar Symptoms Previously?: No Recently seen or treated by another doctor?: No Review of Systems - Adult - REVIEW OF SYSTEMS - ADULT ROS:: limited per condition Constitutional: denies: fever Eyes: reports: no symptoms reported Ears, Nose, Mouth & Throat: reports: other (nasal injury) Cardiovascular: reports: no symptoms reported Respiratory: reports: no symptoms reported Gastrointestinal: reports: no symptoms reported Genitourinary: reports: no symptoms reported Past History - Adult - PAST MEDICAL HISTORY-ADULT Review of Records: reports: Nursing Assessment Review Major Childhood Illnesses: reports: denies history Cardiovascular: reports: denies history, HTN Respiratory: reports: COPD, denies history Gastrointestinal: reports: denies history Obstetrical/Gynecological: reports: denies history Genitourinary: reports: denies history Musculoskeletal: reports: denies history Neurological: reports: denies history Psychiatric: reports: anxiety Endocrine/Immune: reports: denies history Other Conditions: reports: denies history - PRIOR SURGERIES/PROCEDURES Surgical/Procedure History: reports: reviewed, not pertinent - IMMUNIZATION STATUS Childhood Immunizations: See Nurse Assessment Flu Vaccine: See Nurse Assessment - FAMILY HISTORY Family History: reviewed, not pertinent Physical Exam- Neurological - Physical Exam-Neuro Initial Vital Signs Reviewed: Yes General Appearance: alert, slow to respond Eye Exam: bilateral eye: PERRL (pupils dilated ) HENMT: other (nasal bridge abrasion and bruise) Head Injury: lacerations. negative: Leblanc's Sign, raccoon eyes Neck: negative: C-spine tenderness Respiratory: normal breath sounds, no respiratory distress Cardiovascular: normal peripheral pulses, no edema Abdominal Exam: normal bowel sounds, non tender, soft Lymphatic: no adenopathy Extremity: non-tender, normal gait, no pedal edema, no calf tenderness check[place] grounds Exam: other (unable to fully assess due to decreased mental status,) Integumentary: normal color, warm/dry - Glascow Coma Scale Best Eye Response: (3) open to voice Best Verbal Response: (4) confused conversation Best Motor Response: (6) obeys commands Progress - PLAN OF CARE/RESULTS Progress/Plan/Lab Results: Vital Signs - 8 hr 01/29/19 17:36 01/29/19 18:37 Temperature 98.5 F Pulse Rate 97 H 84 Respiratory Rate 18 23 Blood Pressure 135/078 136/081 O2 Sat by Pulse Oximetry 99 96 Laboratory Results - last 24 hr 01/29/19 01/29/19 01/29/19 18:18 18:18 18:18 WBC 8.15 RBC 3.73 L Hgb 10.4 L Hct 34.6 L MCV 92.8 MCH 27.9 MCHC 30.1 L RDW Std Deviation 12.0 Plt Count 205 MPV 9.0 Immature Gran % (Auto) 0.1 Neut % (Auto) 77.5 H Lymph % (Auto) 13.7 L [place] % (Auto) 7.6 Eos % (Auto) 0.9 Baso % (Auto) 0.2 Immature Gran # (Auto) 0.01 Neut # (Auto) 6.31 Lymph # (Auto) 1.12 L [place] # (Auto) 0.62 H Eos # (Auto) 0.07 Baso # (Auto) 0.02 Sodium Potassium Chloride Carbon Dioxide Anion Gap BUN Creatinine Estimated GFR/1.73 m2 BUN/Creatinine Ratio Glucose Calculated Osmolality Calcium Total Bilirubin AST ALT Alkaline Phosphatase Creatine Kinase 67 Troponin T < 0.010 Total Protein Albumin Globulin Albumin/Globulin Ratio Urine Source Urine Color Urine Clarity Urine pH Ur Specific [place] Urine Protein Urine Ketones Urine Blood Urine Nitrite Urine Bilirubin Urine Urobilinogen Urine Microscopic RBC Urine WBC Urine Microscopic WBC Ur Epithelial Cells Urine Crystals Urine Bacteria Urine Casts Urine Yeast Urine Glucose Urine Opiates Screen Ur Oxycodone Screen Urine Methadone Screen U Propoxyphene Qual Ur Barbituates Screen Total Phenytoin Ur Tricyclics Screen Ur Phencyclidine Scrn Ur Amphetamines Screen U Methamphetamines Scrn U Benzodiazepines Scrn Urine Cocaine Screen U Cannabinoids Screen 01/29/19 01/29/19 01/29/19 18:18 18:18 19:33 WBC RBC Hgb Hct MCV MCH MCHC RDW Std Deviation Plt Count MPV Immature Gran % (Auto) Neut % (Auto) Lymph % (Auto) [place] % (Auto) Eos % (Auto) Baso % (Auto) Immature Gran # (Auto) Neut # (Auto) Lymph # (Auto) [place] # (Auto) Eos # (Auto) Baso # (Auto) Sodium 142 Potassium 3.7 Chloride 90 L Carbon Dioxide 43 H Anion Gap 8 BUN 13 Creatinine 0.3 L Estimated GFR/1.73 m2 > 60 BUN/Creatinine Ratio 43 Glucose 118 H Calculated Osmolality 284 Calcium 9.4 Total Bilirubin 0.20 AST 13 ALT 8 L Alkaline Phosphatase 147 H Creatine Kinase Troponin T Total Protein 7.2 Albumin 4.4 Globulin 3.0 Albumin/Globulin Ratio 2.0 Urine Source CLEAN CATCH Urine Color YELLOW Urine Clarity VERY CLOUDY A Urine pH 9.0 Ur Specific [place] 1.010 Urine Protein NEGATIVE Urine Ketones NEGATIVE Urine Blood NEGATIVE Urine Nitrite POSITIVE A Urine Bilirubin NEGATIVE Urine Urobilinogen NORMAL Urine Microscopic RBC <10 Urine WBC 2+ A Urine Microscopic WBC 10-20 A Ur Epithelial Cells >10 A Urine Crystals NONE SEEN Urine Bacteria 4+ Urine Casts NONE SEEN Urine Yeast NONE SEEN Urine Glucose NEGATIVE Urine Opiates Screen Ur Oxycodone Screen Urine Methadone Screen U Propoxyphene Qual Ur Barbituates Screen Total Phenytoin 1.50 L Ur Tricyclics Screen Ur Phencyclidine Scrn Ur Amphetamines Screen U Methamphetamines Scrn U Benzodiazepines Scrn Urine Cocaine Screen U Cannabinoids Screen 01/29/19 01/29/19 19:33 21:36 WBC RBC Hgb Hct MCV MCH MCHC RDW Std Deviation Plt Count MPV Immature Gran % (Auto) Neut % (Auto) Lymph % (Auto) [place] % (Auto) Eos % (Auto) Baso % (Auto) Immature Gran # (Auto) Neut # (Auto) Lymph # (Auto) [place] # (Auto) Eos # (Auto) Baso # (Auto) Sodium Potassium Chloride Carbon Dioxide Anion Gap BUN Creatinine Estimated GFR/1.73 m2 BUN/Creatinine Ratio Glucose Calculated Osmolality Calcium Total Bilirubin AST ALT Alkaline Phosphatase Creatine Kinase Troponin T Total Protein Albumin Globulin Albumin/Globulin Ratio Urine Source CATH Urine Color YELLOW Urine Clarity CLEAR Urine pH 9.0 Ur Specific [place] 1.010 Urine Protein NEGATIVE Urine Ketones NEGATIVE Urine Blood NEGATIVE Urine Nitrite POSITIVE A Urine Bilirubin NEGATIVE Urine Urobilinogen NORMAL Urine Microscopic RBC <10 Urine WBC 2+ A Urine Microscopic WBC TNTC A Ur Epithelial Cells <10 Urine Crystals NONE SEEN Urine Bacteria 4+ Urine Casts NONE SEEN Urine Yeast NONE SEEN Urine Glucose NEGATIVE Urine Opiates Screen NONE DETECTED Ur Oxycodone Screen NONE DETECTED Urine Methadone Screen NONE DETECTED U Propoxyphene Qual NONE DETECTED Ur Barbituates Screen PRESUMPTIVE POSITIVE A Total Phenytoin Ur Tricyclics Screen NONE DETECTED Ur Phencyclidine Scrn NONE DETECTED Ur Amphetamines Screen NONE DETECTED U Methamphetamines Scrn NONE DETECTED U Benzodiazepines Scrn NONE DETECTED Urine Cocaine Screen NONE DETECTED U Cannabinoids Screen NONE DETECTED Orders Category Date Time Status Saline Loc NOW Care 01/29/19 18:05 Active CHEST-PORTABLE [RAD] Stat Exams 01/29/19 18:[address] CERVICAL SPINE W/O CONTRAST [CT] Stat Exams 01/29/19 18:[address] HEAD W/O CONTRAST [CT] Stat Exams 01/29/19 18:[address] MAXILLOFACIAL(SINUS) W/O CO [CT] Stat Exams 01/29/19 18:03 Completed CBC WITH DIFF [HEME] Stat Lab 01/29/19 18:18 Completed CK PROFILE [SP CHEM] Stat Lab 01/29/19 18:18 Completed COMPREHENSIVE METABOLIC PANEL [CHEM] Stat Lab 01/29/19 18:18 Completed PHENYTOIN [TDM] Stat Lab 01/29/19 18:18 Completed TROPONIN T Stat Lab 01/29/19 18:[address] W/POSS RFLX CULT [URINALYSIS] Stat Lab 01/29/19 19:[address] W/POSS RFLX CULT [URINALYSIS] Stat Lab 01/29/19 21:36 Completed URINE CULTURE [RM] Routine Lab 01/29/19 19:49 Ordered URINE CULTURE [RM] Routine Lab 01/29/19 21:56 Or[address] DRUG SCREEN [address] Stat Lab 01/29/19 19:33 Completed 0.9% Sodium Chloride Inj [Ns] 100 ml Med 01/29/19 21:44 Discontinued .ROUTE As directed CefTRIAXONE [Rocephin] 1 gm Med 01/29/19 22:08 Discontinued 0.9% Sodium Chloride Inj [Ns] 50 ml IV NOW Fosphenytoin [Cerebyx] Med 01/29/19 21:23 Discontinued 1,000 mg IV NOW ONE EKG [EKG] Stat Ther 01/29/19 18:07 Draft She was accessed in [employer]. on 01/25, she filled 90 Subutex 8 mg, on 12/25 filled 90 Subutes 8g, as well as 40 Oxycodone 5 mg, and on 12/17, filled 50 Oxycodone 10 mg Result Diagrams: 01/29/19 18:18 01/29/19 18:18 - REASSESSMENT Reassessment #1 Time Reassessed: 21:20 (assumed care @ S/O. Was caled in room by RT, sats were low, they had to increase her NC to 5 L. She awakens with touch, loud speech, speech is sl slurred, does not open eyes well, does not obey commands well) Reassessment #2 Time Reassessed: 22:12 (a little more alert, but still somulent, gives repetive, simple answers) - XRAY 1 XRAY Study: Chest Impression: Normal (per me) - CT/MRI 1 CT Study: Head Impression: Normal (no intracranial injury, small scalp hematoma) 2 CT Study: Cervical Spine Impression: Normal 3 CT Study: Facial Bones Impression: Normal - CONSULTS/PCP/HOSPITALIST Notification #1 *Consult/PCP/Hospitalist*: Leon Time Discussed: 22:27 Reason/Comments: Requests that we get her transferred and admitted to [facility] #2 Consult: Tahira Time Discussed: 23:11 Reason/Comments: will admit, but cannot bring to [facility] since no beds available, will retry in - CHANGE OF SHIFT REPORT (ED Provider) 1 Report Given and Care Transferred to:: Dr Slaughter Time of Transfer: 19:00 Items Pending: Labs, CT/MRI Results Departure - Departure Date of Disposition Decision: 01/29/19 Time of Disposition Decision: 22:13 DIAGNOSIS: Seizure, Altered mental status, Facial injury, Urinary tract infection, Dilantin level too low Disposition: ADMITTED INPATIENT 09 Certified Medical Emergency: Emergent Condition: Good Referrals and Follow-Ups: None,PCP [Primary Care Provider] - - Critical Care Note This patient required my direct & personal management of CC.: No Attestation - Physician/ LINDSEY Attestation Patient care was provided by Advanced Practice Provider:: No The physician spent face to face time with patient:: Yes Advanced Practice Provider documentation review:: Supervising physician onsite and consulted in the evaluation and care of this patient. The physician did have a face to face encounter with the patient.
--- NOTE | 2019-01-29 18:18 | EKG Report ---
Test Performed on : 01/29/2019 6:13:59 PM Test Reason : altered mental status Blood Pressure : / mmHG Vent. Rate : 089 BPM Atrial Rate : 089 BPM P-R Int : 142 ms QRS Dur : 086 ms QT Int : 378 ms P-R-T Axes : 068 034 050 degrees QTc Int : 459 ms Normal sinus rhythm. Septal infarct , age undetermined Abnormal ECG No previous ECGs available Unconfirmed Result
--- NOTE | 2019-01-29 18:45 | ED EKG INTERP ---
This chart was entered by Gi Tabor Scribe, acting as scribe for Margie Carrillo MD. EKG Interpretation - EKG Time of EKG reading by physician:: 18:13 EKG Read and Signed by:: Margie Carrillo EKG Interpretation (*Must complete 3 of following elements*): Abnormal (normal sinus rhythm, Septal infarct, age undetermined, Abnormal ECG) Rate: 89 Rhythm: sinus Edelstein: normal QRS: normal Attestation - Physician/ LINDSEY Attestation Patient care was provided by Advanced Practice Provider:: No The physician spent face to face time with patient:: Yes Advanced Practice Provider documentation review:: Supervising physician onsite and consulted in the evaluation and care of this patient. The physician did have a face to face encounter with the patient. This chart was documented by the indicated scribe, (Gi Tabor Scribe) and accurately reflects the services I performed and decisions made by me, Margie Carrillo MD, as attested by the provider's signature.
[2019-01-29 18:49] LABS: BASO# 0.02 X1000 (0.0-0.2); BASO% 0.2 % (0.0-0.8); EOS# 0.07 X1000 (0.0-0.7); EOS% 0.9 % (0.0-10.0); HEMATOCRIT 34.6 % (37.0-47.0); HEMOGLOBIN 10.4 g/dL (12.0-16.0); IMM GRAN# 0.01 X1000 (0.0-0.04); IMM GRAN% 0.1 % (0.0-0.5); LYMPH# 1.12 X1000 (1.2-3.4); LYMPH% 13.7 % (20.5-51.1); MCH 27.9 PG (27-31); MCHC 30.1 g/dL (33-37); MCV 92.8 FL (81-99); MONO# 0.62 X1000 (0.11-0.59); MONO% 7.6 % (1.7-9.3); NEUT# 6.31 X1000 (1.4-6.5); NEUT% 77.5 % (42.2-75.2); PLT 205 X1000 (130-400); RBC 3.73 XMIL (4.2-5.4); WBC 8.15 X1000 (4.8-10.8)
[2019-01-29 19:30] LABS: ESTIMATED GFR > 60
--- NOTE | 2019-01-29 19:33 | Diag Imaging Result Doc PS360 ---
EXAM: CT HEAD W/O CONTRAST INDICATION: head injury TECHNIQUE: This exam was performed using automated exposure control, adjustment of mA or kV according to patient size, and/or use of iterative reconstruction technique. COMPARISON: 11/13/2018 FINDINGS: There is no definite acute infarct given the limited sensitivity of CT versus MRI. There is no discrete intracranial mass, mass effect, or intracranial hemorrhage. The surrounding soft tissues and bony structures are essentially unremarkable. IMPRESSION: No evidence of acute intracranial pathology. Electronically signed by Omar Rodriguez 01/29/2019 7:31 PM
[2019-01-29 19:36] LABS: AGAP 8; ALBUMIN 4.4 g/dL (3.5-5.0); ALKALINE PHOSPHATASE 147 U/L (32-104); BUN 13 mg/dL (8-22); CALCIUM 9.4 mg/dL (8.8-10.2); CHLORIDE 90 mmol/L (98-107); COSMO 284; CREATININE 0.3 mg/dL (0.5-0.9); GLUCOSE 118 mg/dL (70-104); GOT 13 U/L (10-30); GPT 8 U/L (10-36); POTASSIUM 3.7 mmol/L (3.5-5.1); SODIUM 142 mmol/L (136-145); TCO2 43 mmol/L (25-35); TOTAL PROTEIN 7.2 g/dL (6.3-8.3)
[2019-01-29 19:43] LABS: BILIRUBIN URINE NEGATIVE (NEGATIVE); BLOOD URINE NEGATIVE (NEGATIVE); CLARITY VERY CLOUDY (CLEAR); COLOR YELLOW; GLUCOSE URINE NEGATIVE (NEGATIVE); KETONE URINE NEGATIVE (NEGATIVE); LEUKOCYTES URINE 2+ (NEGATIVE); NITRITE URINE POSITIVE (NEGATIVE); PROTEIN URINE NEGATIVE (NEGATIVE); UROBILINOGEN URINE NORMAL
--- NOTE | 2019-01-29 19:45 | Diag Imaging Result Doc PS360 ---
EXAM: CT CERVICAL SPINE W/O CONTRAST INDICATION: fall, seizure, head injury TECHNIQUE: This exam was performed using automated exposure control, adjustment of mA or kV according to patient size, and/or use of iterative reconstruction technique. COMPARISON: None. FINDINGS: There has been prior anterior cervical fusion at C5-6 and C6-7. Metallic hardware is in place. There is intervertebral disc space narrowing and partial osteophyte formation at several other cervical levels and there is moderate facet arthropathy at several levels. This is causing neuroforaminal narrowing of varying degrees at multiple levels. There is mild to moderate central canal narrowing at several levels. Otherwise, there is no discrete fracture, subluxation, or significant intrinsic osseous lesion. There are emphysematous changes at the lung apices and there is fibrosis at the right lung apex. Surrounding soft tissues are essentially unremarkable, otherwise. IMPRESSION: Multilevel postsurgical and degenerative changes but no evidence of fracture or other definite acute C-spine injury. Electronically signed by Omar Rodriguez 01/29/2019 7:43 PM
[2019-01-29 19:47] LABS: URINE SOURCE CLEAN CATCH
[2019-01-29 19:49] LABS: URINE BACTERIA 4+ /HFP; URINE CAST NONE SEEN /LPF; URINE CRYSTAL NONE SEEN /HPF; URINE EPITHELIAL CELLS >10 /HPF (<10); URINE RBC <10 /HPF (<10); URINE YEAST NONE SEEN /HPF
--- NOTE | 2019-01-29 20:09 | Diag Imaging Result Doc PS360 ---
EXAM: CT MAXILLOFACIAL(SINUS) W/O CO INDICATION: facial injury TECHNIQUE: COMPARISON: None. FINDINGS: There is no evidence of facial bone fracture. Specifically, the orbits and nasal bones are intact. The mandible is normally located. The mastoid air cells are clear. There is a small left ethmoid sinus mucus retention cyst. The paranasal sinuses are clear, otherwise. The globes are intact. There is no retrobulbar hematoma. Surrounding soft tissues are essentially unremarkable, otherwise. IMPRESSION: No evidence of facial bone fracture. Electronically signed by Omar Rodriguez 01/29/2019 8:07 PM
[2019-01-29 21:19] LABS: UR AMPHETAMINES QUAL NONE DETECTED (NONE DETECT); UR BARBITUATES QUAL PRESUMPTIVE POSITIVE (NONE DETECT); UR BENZODIAZEPIN QUAL NONE DETECTED (NONE DETECT); UR CANNABINOIDS QUAL NONE DETECTED (NONE DETECT); UR COCAINE QUAL NONE DETECTED (NONE DETECT); UR METHADONE QUAL NONE DETECTED (NONE DETECT); UR METHAMPHETAMINE QUAL NONE DETECTED (NONE DETECT); UR OPIATES QUAL NONE DETECTED (NONE DETECT); UR OXYCODONE QUAL NONE DETECTED (NONE DETECT); UR PCP QUAL NONE DETECTED (NONE DETECT); UR PROPOXYPHENE QUAL NONE DETECTED (NONE DETECT); UR TCA QUAL NONE DETECTED (NONE DETECT)
[2019-01-29] MEDS ORDERED: CEREBYX IV ONE (21:23)
--- NOTE | 2019-01-29 21:24 | Diag Imaging Result Doc PS360 ---
EXAM: CHEST-PORTABLE INDICATION: altered mental status TECHNIQUE: One view COMPARISON: 11/13/2018 FINDINGS: The left chest port is in stable position. The lungs are grossly clear. There is no discrete pleural fluid collection or pneumothorax. The cardiomediastinal silhouette and central vasculature are grossly unremarkable. IMPRESSION: No evidence of acute pathology by plain radiograph. Electronically signed by Omar Rodriguez 01/29/2019 9:21 PM
[2019-01-29 21:39] LABS: URINE SOURCE CATH
[2019-01-29] MEDS ORDERED: NS 100 ML ONE (21:44)
[2019-01-29 21:48] LABS: BILIRUBIN URINE NEGATIVE (NEGATIVE); BLOOD URINE NEGATIVE (NEGATIVE); COLOR YELLOW; GLUCOSE URINE NEGATIVE (NEGATIVE); KETONE URINE NEGATIVE (NEGATIVE); LEUKOCYTES URINE 2+ (NEGATIVE); NITRITE URINE POSITIVE (NEGATIVE); PROTEIN URINE NEGATIVE (NEGATIVE); UROBILINOGEN URINE NORMAL
[2019-01-29 21:54] LABS: CLARITY CLEAR (CLEAR)
[2019-01-29 21:56] LABS: URINE BACTERIA 4+ /HFP; URINE CAST NONE SEEN /LPF; URINE CRYSTAL NONE SEEN /HPF; URINE EPITHELIAL CELLS <10 /HPF (<10); URINE RBC <10 /HPF (<10); URINE WBC TNTC /HPF (<10); URINE YEAST NONE SEEN /HPF
[2019-01-29] MEDS ORDERED: ROCEPHIN 1 GM in NS 50 ML IV ONE (22:08)
[2019-01-30] MEDS ORDERED: NS 1,000 ML IV ONE (04:33)
--- NOTE | 2019-01-30 09:30 | HISTORY AND PHYSICAL ---
PRIMARY CARE PHYSICIAN: Dr. Bright. CHIEF COMPLAINT: Seizure with confusion and somnolence on arrival. HISTORY OF PRESENTING ILLNESS: This is a 58-year-old female who presents to [facility] ER after she had an apparent seizure that may or may not have been witnessed by her dad, and is unsure if he is the one who found her, but brought her into the emergency room. When she arrived, she was oriented x2 with some confusion, appeared somnolent. She had a bruise and abrasion on her nose from where she had her seizure activity and fell onto her face. Her workup showed a phenytoin level of 1.50. Her head CT showed no evidence of acute intracranial pathology. Maxillofacial CT showed no evidence of facial bone fracture. Cervical spine CT showed multilevel postsurgical and degenerative changes but no evidence of fracture or other definite acute cervical spine injury. When she arrived, she did require O2 via nasal cannula. This morning, the patient is more alert and awake and answering questions. She is slow to respond with some of her answers. States that she feels sore all over. Pupils remain dilated at about a 3/5, but respond to light and accommodation, so she is going to be admitted to the medical unit at [facility] for further evaluation and treatment. PAST MEDICAL HISTORY: 1. Breast cancer. 2. Hypertension. 3. COPD. 4. Anxiety. 5. Seizures. PAST SURGICAL HISTORY: Bilateral mastectomy and left port placement and a back and neck surgery. FAMILY HISTORY: Reviewed and noncontributory. SOCIAL HISTORY: She currently lives alone. She is a pack a day smoker, unknown for how many years. No alcohol use and denied any illicit drug use. ALLERGIES: Hydrocodone. HOME MEDICATIONS: We will need to obtain a current list, reconcile, review and restart as appropriate. We will place an order for nursing to update and confirm home medications. LABORATORY DATA: Showed a white blood cell count of 8.15, hemoglobin 10.4, hematocrit 34.6, platelets 205,000. Sodium 142, potassium 3.7, chloride 90, CO2 43, BUN of 13, creatinine 0.3, glucose 118. Creatine kinase of 67, troponin less than 0.010. Urinalysis showed positive nitrites, 2+ white blood cells, 4+ bacteria. Urine drug screen was presumptive positive for barbiturates. Dilantin level of 1.50. Head CT showed no evidence of acute intracranial pathology. Maxillofacial CT showed no evidence of a facial bone fracture. Chest x-ray showed no evidence of acute pathology by plain radiograph. EKG showed normal sinus rhythm at 89. Cervical spine CT showed multilevel postsurgical and degenerative changes but no evidence of fracture or other definite acute cervical spine injury. REVIEW OF SYSTEMS: She denied any fever, chills, blurred vision, dizziness, chest pain, coughing, shortness of breath. She denied any abdominal pain, constipation, diarrhea, burning or hurting with urination. PHYSICAL EXAMINATION: On arrival she had a temperature of 98.5 degrees, pulse 97, respirations 18, blood pressure 135/78 saturating 99% on room air and she is currently saturating 98% on 3 L via nasal cannula. GENERAL: This is a 58-year-old female who is alert and awake, oriented x2, and answers questions appropriately but is still mildly slow to respond with her answers. HEENT: Normocephalic, atraumatic. Normal ENT inspection. Normal ear and throat examination. Her nose she is noted to have an abrasion and swelling to her nose from her status post seizure. Eyes- Pupils are equal and they are dilated to 3/5, but they respond appropriately to light and accommodation. Extraocular movements are intact. NECK: Normal inspection, normal range of motion. LUNGS: Clear to auscultation bilaterally with equal lung expansion and chest wall movement. HEART: With regular rate and rhythm. No murmurs, rubs, or gallops. ABDOMEN: Soft, nontender, nondistended. Bowel sounds are present x4 quadrants. MUSCULOSKELETAL: She has 5/5 strength x4 extremities. NEUROLOGICAL: The cranial nerves 2-12 appear grossly intact. ASSESSMENT: 1. Seizure. 2. Altered mental status secondary to #1. 3. Urinary tract infection. 4. Tobacco abuse. 5. Hypertension. PLAN: Initially she was going to be admitted to the intensive care unit and we did not have a bed available so she was holding in the emergency room. This morning she is doing better, more alert and it is felt that she can safely go to the medical floor here at [facility]. We will place her on telemetry. We will do neuro checks q.4 hours for 24 hours, place her on a healthy heart diet. We will consult Dr. Patel. I did speak with him about this patient this morning. He recommends at this time starting her on Dilantin 200 mg p.o. b.i.d. with the first dose this morning. She did receive a loading dose last night of [id number] mg IV when she arrived around 9 p.m. last night. We will keep her on normal saline at 75 mL an hour. We will update and confirm home medications. Recheck a CBC, BMP in the a.m. Further orders after seen by attending and by exchange consultant. Dictated by RAY Roger for Papa Villanueva MD Addendum: Patient seen and examined by myself. Agree with RAY note. It reflects my assessment and plan. Patient is being admitted for seizures. We have checked Dilantin levels and are low. Patient upon my examination is still somewhat postictal. Will restart Dilantin and will consult Neurology. So far CT of head is unremarkable. Will monitor patient closely. cc: RAY Roger MD [facility]
[2019-01-30] MEDS: DILANTIN PO SCH ×2 (09:44→21:51)
[2019-01-30] MEDS: ROCEPHIN 1 GM in NS 50 ML IV SCH (09:45)
[2019-01-30] MEDS: NS 1,000 ML IV SCH (13:18)
--- NOTE | 2019-01-30 15:08 | CONSULTATION ---
DATE OF CONSULTATION: 01/30/2019 Ms. Fuchs is 58 years old and history suggests she had another seizure causing her to fall, striking her head, bruising her nose. She does not recall that incident specifically now. She told me that she does have some recollection of her face hurting. I saw her in the hospital a few months ago after apparent seizure and at least one seizure then was witnessed by medical personnel. She was started on phenytoin and was stable neurologically with negative workup. The EEG then showed some generalized slowing postictally but no epileptiform discharge or focal findings. Imaging then was all unremarkable. Her urine drug screen was positive then for benzodiazepines only. History now is that she may have had some other seizures since that hospital discharge. She told me today that she does miss her medication doses. She had phenytoin 300 mg daily prescribed and phenytoin level 1.5 on admission yesterday. Urine drug screen this time was positive for barbiturates, negative for all others. She told me she has taken some medicines "from a friend" which were not prescribed for her. She admits taking clonazepam recently. She does not know what else she might have taken. The medication list here has not been reconciled and may not be accurate but includes buprenorphine, no benzodiazepines no barbiturates. Urine drug screen this admission was negative for opiate. (I don't know if buprenorphine would show positive for opiate on our drug screen.) Chemistry was unremarkable. Noncontrast CT of the head was unremarkable. She has not had seizure witnessed here. She was reported poorly responsive initially and has been slowly more appropriate and more responsive through the day today. On exam, Ms. Fuchs is asleep, easily waked, alert and attentive during my time at the bedside. Speech is not dysarthric. Language function is intact on brief bedside testing. Some of her answers are slow and she seemed to lose her train of thought sometimes before she could provide an answer. She identified this as a hospital in [place]. She named the President. She was not certain about the day of the week. She did not discuss recent news. There is some mild ecchymosis and excoriation over the nose. Head is otherwise unremarkable. There is no skull defect or other evidence of trauma. Neck is supple without meningismus. Extraocular movements are full. Facial motility is symmetric. Gag is intact. Tongue is midline and does not show evidence of bruising or biting. Shoulder shrug is good bilaterally. Strength is normal in the arms and legs. She did well on [id number] testing bilaterally. She reports symmetric sensation on gross testing over the limbs. I did not test her gait. IMPRESSION: Global encephalopathy, presentation after what sounds like generalized seizure, possibility that she has had other seizures in recent months. She presented with very subtherapeutic phenytoin level, consistent with her report that she misses doses. She was loaded with fosphenytoin overnight and we have increased her maintenance dose to 200 mg twice a day now. I think we should check level, document therapeutic phenytoin level prior to discharge. I will plan to follow up with her as an outpatient, which we intended to do after last discharge, and make decisions about longer-term seizure medicine and management then. I encouraged her to try to take her medicines carefully and consistently as directed. I encouraged her not to use illicit drugs or to take medicines that were not prescribed for her. We discussed the [place] Law as it pertains to driving, and she understands her responsibility. She told me she does not drive now. Further, I encouraged her not to get into any situation in which a seizure or other episode of collapse might result in serious injury to her or to someone else. Thanks for asking neurology to see Ms. Fuchs. cc: MD DMITRY Short III
[2019-01-31] MEDS: NS 1,000 ML IV SCH ×2 (03:07→15:48)
[2019-01-31 08:25] LABS: BASO# 0.04 X1000 (0.0-0.2); BASO% 0.6 % (0.0-0.8); EOS# 0.18 X1000 (0.0-0.7); EOS% 2.6 % (0.0-10.0); HEMATOCRIT 32.1 % (37.0-47.0); HEMOGLOBIN 10.2 g/dL (12.0-16.0); IMM GRAN# 0.02 X1000 (0.0-0.04); IMM GRAN% 0.3 % (0.0-0.5); LYMPH# 1.52 X1000 (1.2-3.4); LYMPH% 22.1 % (20.5-51.1); MCH 28.2 PG (27-31); MCHC 31.8 g/dL (33-37); MCV 88.7 FL (81-99); MONO# 0.63 X1000 (0.11-0.59); MONO% 9.1 % (1.7-9.3); MPV 8.9 FL (7.4-10.4); NEUT% 65.3 % (42.2-75.2); PLT 218 X1000 (130-400); RBC 3.62 XMIL (4.2-5.4); WBC 6.89 X1000 (4.8-10.8)
[2019-01-31 08:37] LABS: AGAP 11; BUN 13 mg/dL (8-22); CALCIUM 8.8 mg/dL (8.8-10.2); CHLORIDE 97 mmol/L (98-107); COSMO 283; CREATININE 0.3 mg/dL (0.5-0.9); ESTIMATED GFR > 60; GLUCOSE 91 mg/dL (70-104); POTASSIUM 3.6 mmol/L (3.5-5.1); SODIUM 142 mmol/L (136-145); TCO2 34 mmol/L (25-35)
[2019-01-31] MEDS: DILANTIN PO SCH ×2 (10:38→21:50)
[2019-01-31] MEDS: ROCEPHIN 1 GM in NS 50 ML IV SCH (10:39)
--- NOTE | 2019-01-31 14:03 | PROGRESS NOTE ---
DATE: 01/31/2019 SUBJECTIVE: The patient reports feeling fine. She is completely alert and awake. She denies any headache, nausea, vomiting. OBJECTIVE: Vital Signs: Temperature 97.9 degrees, heart rate 73, respiratory rate 18, blood pressure 150/81, O2 saturation 100% on 3 L nasal cannula. General: This is a 58-year-old female lying in bed, in no acute distress. Cardiovascular: S1, S2 heard. No murmurs, gallops, or rubs. Regular rate and rhythm. Respiratory: Clear bilaterally to auscultation. No work of breathing or using accessory muscles. Abdomen: Soft, nontender to palpation. Bowel sounds present. No organomegaly. Extremities: No clubbing, cyanosis, or edema. Peripheral pulses present in both legs. Neurological: The patient is alert oriented x3. Moves 4 extremities. LABORATORY DATA: Reviewed and the Dilantin level today is day 8.5. ASSESSMENT AND PLAN: 1. Status post generalized seizure with postictal episode. The reason why the patient was admitted to the hospital was because of another episodes of seizures. Patient is on Dilantin we have checked a Dilantin level on admission and those were very low of 1.5. She has been loaded with Dilantin and her home dose 100 mg p.o. 3 times per day has being changed to [address] Patel from Neurology has been involved in her care. He is planning to see her in the office. Home in the office after she is discharged home but we have to make sure that the levels are within normal limits between 10 and 20. At this point, we will continue to monitor this patient closely. 2. Urinary tract infection. Results of urine cultures still pending. We will continue to monitor. We will continue with antibiotics. 3. Hypertension. Blood pressure is under control. We will continue with same management. DISPOSITION: Patient is stable. No more episodes of seizures since admission. We will discharge this patient whenever Dilantin levels are back to normal. cc: Papa Villanueva MD
[2019-01-31] MEDS: SUBUTEX SL SCH ×2 (14:44→21:50)
[2019-01-31] MEDS: VENTOLIN HFA INH PRN (15:41)
[2019-01-31] MEDS: NEURONTIN PO SCH (16:41)
[2019-01-31] MEDS: LIPITOR PO SCH (21:50)
[2019-01-31] MEDS: COREG PO SCH (21:50)
[2019-02-01] MEDS: NS 1,000 ML IV SCH ×2 (06:04→23:15)
[2019-02-01] MEDS: VENTOLIN HFA INH PRN (08:07)
[2019-02-01] MEDS: COREG PO SCH ×2 (08:52→21:27)
[2019-02-01] MEDS: CELEXA PO SCH (08:52)
[2019-02-01] MEDS: GLUCOPHAGE PO SCH (08:52)
[2019-02-01] MEDS: PRINIVIL PO SCH (08:52)
[2019-02-01] MEDS: DILANTIN PO SCH ×2 (08:52→21:27)
[2019-02-01] MEDS: NEURONTIN PO SCH ×3 (08:52→16:34)
[2019-02-01] MEDS: ROCEPHIN 1 GM in NS 50 ML IV SCH ×2 (08:53→11:13)
[2019-02-01] MEDS: SUBUTEX SL SCH ×3 (09:03→21:27)
[2019-02-01] MEDS ORDERED: CEREBYX IV ONE ×2 (09:55→10:00)
[2019-02-01] MEDS ORDERED: NS IV ONE (10:00)
[2019-02-01] MEDS ORDERED: PHENERGAN PO PRN (12:30)
--- NOTE | 2019-02-01 13:56 | PROGRESS NOTE ---
DATE: 02/01/2019 SUBJECTIVE: The patient reports feeling fine. No more episodes of seizures. She is completely alert and awake. OBJECTIVE: Vital Signs: Temperature 98.5 degrees, heart rate 75, respiratory rate 20, blood pressure 149/74, O2 saturation 100% on 2 L nasal cannula. General: This is a chronically ill appearing, 58-year-old female lying in bed in no acute distress. Cardiovascular: S1, S2 heard. No murmurs, gallops, or rubs. Regular rate and rhythm. Respiratory: Clear bilaterally to auscultation. No work of breathing or using accessory muscles. Abdomen: Soft, nontender to palpation. Bowel sounds present. Neurologic: The patient is alert and oriented x3. Moves all four extremities. LABORATORY DATA: Reviewed. ASSESSMENT AND PLAN: 1. Status post generalized seizure with postictal episode. The patient is seizure-free since admission. The reason why she had seizure is because of the noncompliance with medication. The patient reports not taking her medication as she is supposed to. Dilantin level was very low at 1.5. Normal is 10-20. She has been loaded with 1 gram of fosphenytoin. Yesterday, the Dilantin level was 8.5, but today is 7.6. We are going to provide 500 mg of Dilantin IV, and we are going to check level. If Dilantin level is within normal limits, then she can be discharged. Dr. Patel from Neurology has evaluated this patient and his recommendation is to see her in the office in 1-2 weeks after she is discharged. 2. Urinary tract infection. The urine showed Escherichia coli. The patient was given ceftriaxone 1 gram q.24 hours. Will continue same management. 3. Hypertension. Blood pressure is under control. Will continue same management. 4. Disposition. I think we are awaiting for Dilantin level to be within normal limits, then the patient can be discharged. cc: Papa Villanueva MD
[2019-02-01] MEDS: LIPITOR PO SCH (21:27)
[2019-02-02 03:44] VITALS: BP 111/55
[2019-02-02] MEDS: VENTOLIN HFA INH PRN (07:30)
[2019-02-02] MEDS: ROCEPHIN 1 GM in NS 50 ML IV SCH (10:18)
[2019-02-02] MEDS: SUBUTEX SL SCH (10:20)
[2019-02-02] MEDS: DILANTIN PO SCH (10:21)
[2019-02-02] MEDS: NEURONTIN PO SCH (10:22)
[2019-02-02] MEDS: PRINIVIL PO SCH (10:22)
[2019-02-02] MEDS: CELEXA PO SCH (10:22)
[2019-02-02] MEDS: COREG PO SCH (10:22)
[2019-02-02] MEDS: GLUCOPHAGE PO SCH (10:22)
--- NOTE | 2019-02-02 13:29 | DISCHARGE SUMMARY ---
ADMISSION DATE: 01/30/2019 DISCHARGE DATE: 02/02/2019 PRIMARY CARE PHYSICIAN: Dr. Thiago Bright. NEUROLOGIST: Dr. Patel. ADMISSION DIAGNOSES: 1. Seizure. 2. Altered mental status secondary to #1. 3. Urinary tract infection. 4. Tobacco abuse. 5. Hypertension. DISCHARGE DIAGNOSES: 1. Status post generalized seizure with postictal episode, now seizure-free since admission. 2. Escherichia coli urinary tract infection. 3. Hypertension. SUMMARY OF FINDINGS: This is a 58-year-old female who presented to the ER after she had had an apparent seizure that may or may not have been witnessed by her dad. She was unsure if he was the one who found her, but when she arrived she was oriented x2 with confusion and appeared somewhat somnolent in a postictal state. She had a bruise and abrasion to her nose where she had fallen face first with her seizure activity. Her Dilantin level was noted to be 1.50. CT of the head showed no acute intracranial pathology. We did a maxillofacial CT that showed no evidence of facial bone structure and cervical CT of the spine showed multilevel postsurgical and degenerative changes, but no evidence of fracture or other definite acute cervical spine injury. She was slow to respond initially, but is back to her baseline. We did have Neurology to see her. We have been following her Dilantin level. She was placed on 200 mg p.o. b.i.d. Her urine grew out an E. Coli UTI that we have been treating appropriately. Today, her Dilantin level is up to 11.10 so it is now felt that she can safely be discharged home. DISCHARGE MEDICATIONS: 1. Albuterol inhaler 2 puff inhalation q.4-6 hours p.r.n. 2. Atorvastatin 40 mg p.o. daily. 3. Subutex 8 mg sublingually t.i.d. 4. Coreg 3.125 mg p.o. b.i.d. 5. Celexa 20 mg p.o. daily. 6. Gabapentin 800 mg p.o. t.i.d. 7. Lisinopril 20 mg p.o. daily. 8. Metformin 500 mg p.o. daily. 9. Phenergan 25 mg p.o. q.4-6 hours p.r.n. 10. DuoNeb's t.i.d. p.r.n. 11. Dilantin 200 mg p.o. b.i.d. #120 with no refills. FOLLOW-UP: She needs to follow up with her neurologist in 2 to 3 weeks, and call the office to schedule the appointment. TIME SPENT: 35 minute discharge. Dictated by RAY Roger for Papa Villanueva MD Addendum: Patient seen and examined by myself. Agree with RAY note. It reflects my assessment and plan. Patient is being discharged from hospital in stable condition. Will be seen by Neurologist in 2 to 3 weeks. cc: RAY Roger MD [facility]
== END 2019-02-02 12:55 | disposition home or self-care (01) | DRG 101 ==
LOC: P.ED 17:36 → SUATTDRO 01-30 01:37 → P.EDIPHOLD 01-30 01:37 → P.MEDSURG 01-30 09:12
PROVIDERS: ATTEND Internal Medicine
CPT/HCPCS: 70450; 70486; 71010; 71045; 72125; 80048; 80053; 80104; 80185; 80301; 80305; 81001; 82550; 84484; 85025; 87077; 87088; 87186; 92523; 93005; 94640; 94761; A9270; G0431; G0434; G0477; J0696; J7030; Q2009

== ENCOUNTER 2019-03-01 13:08 | Inpatient (IN) ==
[2019-03-01 14:40] LABS: ALLEN TEST YES; BE 17.6 mmoll (-3.0-3.0); BLOOD TYPE ARTERIAL; HCO3-(ACT) 38.6 mmoll (20.0-26.0); METHB 1.4 % (0.0-1.5); O2(CT) 15.8 mL/dL (15.0-23.0); PCO2(98.6) 36 mmHg (35-45); PO2(98.6) 73 mmHg (60-100); SAMPLE BLOOD; SAO2 97.4 % (95.0-100.0); THB 11.8 g/dL (11.5-17.4)
[2019-03-01 14:42] LABS: MODALITY CANNULA; pH(98.6) 7.65 (7.35-7.45)
--- NOTE | 2019-03-01 14:42 | PROVIDER DOCUMENTATION ---
HPI-Neurological Disorder - General Chief Complaint: Seizure Stated Complaint: SEIZURE Time Seen by Provider: 03/01/19 13:39 Source: patient, family Allergies/Adverse Reactions: Patient Allergies Allergy/AdvReac Type Severity Reaction Status Date / Time hydrocodone bitartrate * AdvReac ITCHING Verified 11/13/18 10:58 [From Lortab] Home Medications: Home Medication List Medication Instructions Recorded Confirmed Last Taken Type Buprenorphine S.l. [Subutex] 8 mg SL TID 03/19/18 01/30/19 01/29/19 21:00 History Citalopram Hydrobromide [Celexa] 20 mg PO DAILY 03/19/18 01/30/19 01/29/19 09:00 History LISINOpril [Prinivil] 20 mg PO DAILY 03/19/18 01/31/19 01/29/19 08:00 History Metformin [Glucophage] 500 mg PO DAILY 03/19/18 01/31/19 01/29/19 09:00 History Atorvastatin Calcium 40 mg PO DAILY 11/13/18 01/31/19 01/26/19 08:00 History Carvedilol [Coreg] 3.125 mg PO BID 11/13/18 01/31/19 01/29/19 21:00 History Gabapentin 800 mg PO TID 11/13/18 01/30/19 01/29/19 21:00 History Promethazine HCl 25 mg PO Q4-6H PRN PRN 11/13/18 02/01/19 01/20/19 10:00 History Albuterol 2.5MG/Ipratrop 0.5MG 3 ml INH TID PRN PRN #90 neb 11/16/18 01/30/19 Unknown Rx [Duoneb (A & A)] Albuterol Sulfate [Albuterol 2 puff INH Q4-6H PRN PRN 01/30/19 01/30/19 Unknown History Sulfate Hfa] Phenytoin Sodium Extended 200 mg PO BID #120 cap 02/02/19 Unknown Rx [Dilantin] - History of Present Illness-Neuro Nature of Presenting Problem: reports by nurse that pt was found at home by a a friend who came in at noon s/p on the floor, shows signs of seizure activity and ams. when ems arrived, pt decreased seizure activity and still postictal. on arrival pt has the Review of Systems - Adult - REVIEW OF SYSTEMS - ADULT Constitutional: reports: no symptoms reported Eyes: reports: no symptoms reported Ears, Nose, Mouth & Throat: reports: no symptoms reported Cardiovascular: reports: no symptoms reported Respiratory: reports: no symptoms reported Gastrointestinal: reports: no symptoms reported Genitourinary: reports: no symptoms reported Musculoskeletal: reports: no symptoms reported Integumentary: reports: no symptoms reported Neurological: reports: no symptoms reported Psychiatric: reports: no symptoms reported Endocrine: reports: no symptoms reported Hematologic/Lymphatic: reports: no symptoms reported Allergic/Immunologic: reports: no symptoms reported All Other Systems: Reviewed and Negative Past History - Adult - PAST MEDICAL HISTORY-ADULT Review of Records: reports: Old Records Reviewed, Nursing Assessment Review, Medications Reviewed, Social history reviewed & non-contributory. Major Childhood Illnesses: reports: denies history Cardiovascular: reports: denies history, HTN Respiratory: reports: COPD, denies history Gastrointestinal: reports: denies history Obstetrical/Gynecological: reports: denies history Genitourinary: reports: denies history Musculoskeletal: reports: denies history Neurological: reports: denies history Psychiatric: reports: anxiety Endocrine/Immune: reports: denies history Other Conditions: reports: denies history - PRIOR SURGERIES/PROCEDURES Surgical/Procedure History: reports: reviewed, not pertinent - IMMUNIZATION STATUS Childhood Immunizations: See Nurse Assessment Flu Vaccine: See Nurse Assessment - FAMILY HISTORY Family History: reviewed, not pertinent - SOCIAL HISTORY Smoking: denies Substance Use: none/never Alcohol Use Frequency: never Living Situation: family Physical Exam- Neurological - Physical Exam-Neuro Initial Vital Signs Reviewed: Yes General Appearance: alert, other (altered) Eye Exam: bilateral eye: EOMI (strabimus, left eye deviated medally. right eye pupil dilated. ) HENMT: normocephalic/atraumatic, other (dry mucous membrane) Head Injury: no evidence of injury Neck: non-tender, supple, normal inspection Respiratory: chest non-tender, lungs clear, normal breath sounds Cardiovascular: normal peripheral pulses, tachycardia Abdominal Exam: normal bowel sounds, soft Extremity: normal range of motion, non-tender hand lacer Exam: other (nonverbal, unable to eval) Coordination/Gait: other (unable to eval due to medical condition) Motor/Sensory: other (unable to eval) Integumentary: normal color, normal turgor, warm/dry Psych/Mental Status: other (alert) - Glascow Coma Scale Best Eye Response: (4) open spontaneously Best Verbal Response: (1) no verbal response Best Motor Response: (5) localizes to pain Progress - PLAN OF CARE/RESULTS Progress/Plan/Lab Results: Vital Signs - 8 hr 03/01/19 13:22 03/01/19 13:24 03/01/19 13:32 Temperature 98.8 F Pulse Rate 115 H 113 H 117 H Respiratory Rate 14 19 Blood Pressure 112/85 O2 Sat by Pulse Oximetry 92 L 03/01/19 14:08 03/01/19 14:12 03/01/19 14:20 Temperature Pulse Rate 112 H 107 H 110 H Respiratory Rate Blood Pressure O2 Sat by Pulse Oximetry 03/01/19 14:30 03/01/19 14:41 03/01/19 14:52 Temperature Pulse Rate 102 H 106 H 96 H Respiratory Rate Blood Pressure O2 Sat by Pulse Oximetry 03/01/19 16:06 Temperature Pulse Rate Respiratory Rate Blood Pressure 126/112 O2 Sat by Pulse Oximetry Laboratory Results - last 24 hr 03/01/19 03/01/19 03/01/19 14:30 14:31 14:31 WBC RBC Hgb Hct MCV MCH MCHC RDW Std Deviation Plt Count MPV Immature Gran % (Auto) Neut % (Auto) Lymph % (Auto) [place] % (Auto) Eos % (Auto) Baso % (Auto) Immature Gran # (Auto) Neut # (Auto) Lymph # (Auto) [place] # (Auto) Eos # (Auto) Baso # (Auto) PT INR PTT (Actin FS) Specimen Type ARTERIAL Sample Site R RADIAL pH 7.65 H* pCO2 36 pO2 73 HCO3 38.6 H Base Excess 17.6 H Oxyhemoglobin 95.0 ABG O2 Sat (Calculated) 15.8 ABG O2 Saturation 97.4 ABG Carboxyhemoglobin 1.20 ABG Methemoglobin 1.4 [place] Test YES A-a O2 Difference 82.0 Total Hemoglobin 11.8 Lactate 1.70 Liter Flow 2.0 Blood Gas Modality CANNULA FiO2 % 28.0 Sodium 142 Potassium 3.5 Chloride 92 L Carbon Dioxide 36 H Anion Gap 14 BUN 27 H Creatinine 0.8 Estimated GFR/1.73 m2 > 60 BUN/Creatinine Ratio 34 Glucose 183 H POC Glucose Calculated Osmolality 293 Calcium 10.5 H Magnesium 1.1 L Total Bilirubin 0.37 AST 18 ALT 12 Alkaline Phosphatase 182 H Creatine Kinase 102 Troponin T Total Protein 7.3 Albumin 4.8 Globulin 2.5 Albumin/Globulin Ratio 1.9 Urine Source Salicylates < 3.00 L Urine Opiates Screen Ur Oxycodone Screen Ur Methadone, Qual Acetaminophen < 1.2 L Ur Barbiturates Screen Total Phenytoin Ur Phencyclidine Scrn Ur Amphetamines Screen U Benzodiazepines Scrn Urine Cocaine Screen U Cannabinoids Screen Plasma/Serum Ethyl Alc 03/01/19 03/01/19 03/01/19 14:31 14:31 14:31 WBC 12.32 H RBC 4.01 L Hgb 11.4 L Hct 34.8 L MCV 86.8 MCH 28.4 MCHC 32.8 L RDW Std Deviation 11.3 L Plt Count 264 MPV 9.6 Immature Gran % (Auto) 0.4 Neut % (Auto) 78.9 H Lymph % (Auto) 9.7 L [place] % (Auto) 10.8 H Eos % (Auto) 0.0 Baso % (Auto) 0.2 Immature Gran # (Auto) 0.05 H Neut # (Auto) 9.73 H Lymph # (Auto) 1.19 L [place] # (Auto) 1.33 H Eos # (Auto) 0.00 Baso # (Auto) 0.02 PT 16.7 H INR 1.25 PTT (Actin FS) 28.1 Specimen Type Sample Site pH pCO2 pO2 HCO3 Base Excess Oxyhemoglobin ABG O2 Sat (Calculated) ABG O2 Saturation ABG Carboxyhemoglobin ABG Methemoglobin [place] Test A-a O2 Difference Total Hemoglobin Lactate Liter Flow Blood Gas Modality FiO2 % Sodium Potassium Chloride Carbon Dioxide Anion Gap BUN Creatinine Estimated GFR/1.73 m2 BUN/Creatinine Ratio Glucose POC Glucose Calculated Osmolality Calcium Magnesium Total Bilirubin AST ALT Alkaline Phosphatase Creatine Kinase Troponin T < 0.010 Total Protein Albumin Globulin Albumin/Globulin Ratio Urine Source Salicylates Urine Opiates Screen Ur Oxycodone Screen Ur Methadone, Qual Acetaminophen Ur Barbiturates Screen Total Phenytoin Ur Phencyclidine Scrn Ur Amphetamines Screen U Benzodiazepines Scrn Urine Cocaine Screen U Cannabinoids Screen Plasma/Serum Ethyl Alc 03/01/19 03/01/19 03/01/19 14:31 14:38 14:38 WBC RBC Hgb Hct MCV MCH MCHC RDW Std Deviation Plt Count MPV Immature Gran % (Auto) Neut % (Auto) Lymph % (Auto) [place] % (Auto) Eos % (Auto) Baso % (Auto) Immature Gran # (Auto) Neut # (Auto) Lymph # (Auto) [place] # (Auto) Eos # (Auto) Baso # (Auto) PT INR PTT (Actin FS) Specimen Type Sample Site pH pCO2 pO2 HCO3 Base Excess Oxyhemoglobin ABG O2 Sat (Calculated) ABG O2 Saturation ABG Carboxyhemoglobin ABG Methemoglobin [place] Test A-a O2 Difference Total Hemoglobin Lactate Liter Flow Blood Gas Modality FiO2 % Sodium Potassium Chloride Carbon Dioxide Anion Gap BUN Creatinine Estimated GFR/1.73 m2 BUN/Creatinine Ratio Glucose POC Glucose Calculated Osmolality Calcium Magnesium Total Bilirubin AST ALT Alkaline Phosphatase Creatine Kinase Troponin T Total Protein Albumin Globulin Albumin/Globulin Ratio Urine Source CATH Salicylates Urine Opiates Screen NONE DETECTED Ur Oxycodone Screen NONE DETECTED Ur Methadone, Qual NONE DETECTED Acetaminophen Ur Barbiturates Screen NONE DETECTED Total Phenytoin 2.90 L Ur Phencyclidine Scrn NONE DETECTED Ur Amphetamines Screen NONE DETECTED U Benzodiazepines Scrn NONE DETECTED Urine Cocaine Screen NONE DETECTED U Cannabinoids Screen NONE DETECTED Plasma/Serum Ethyl Alc 03/01/19 15:30 WBC RBC Hgb Hct MCV MCH MCHC RDW Std Deviation Plt Count MPV Immature Gran % (Auto) Neut % (Auto) Lymph % (Auto) [place] % (Auto) Eos % (Auto) Baso % (Auto) Immature Gran # (Auto) Neut # (Auto) Lymph # (Auto) [place] # (Auto) Eos # (Auto) Baso # (Auto) PT INR PTT (Actin FS) Specimen Type Sample Site pH pCO2 pO2 HCO3 Base Excess Oxyhemoglobin ABG O2 Sat (Calculated) ABG O2 Saturation ABG Carboxyhemoglobin ABG Methemoglobin [place] Test A-a O2 Difference Total Hemoglobin Lactate Liter Flow Blood Gas Modality FiO2 % Sodium Potassium Chloride Carbon Dioxide Anion Gap BUN Creatinine Estimated GFR/1.73 m2 BUN/Creatinine Ratio Glucose POC Glucose 164 H D Calculated Osmolality Calcium Magnesium Total Bilirubin AST ALT Alkaline Phosphatase Creatine Kinase Troponin T Total Protein Albumin Globulin Albumin/Globulin Ratio Urine Source Salicylates Urine Opiates Screen Ur Oxycodone Screen Ur Methadone, Qual Acetaminophen Ur Barbiturates Screen Total Phenytoin Ur Phencyclidine Scrn Ur Amphetamines Screen U Benzodiazepines Scrn Urine Cocaine Screen U Cannabinoids Screen Plasma/Serum Ethyl Alc Orders Category Date Time Status Admit - [facility] Routine AdmDCTranf 03/01/19 17:24 Active Activity - Up with Assistance ORDERED Care 03/01/19 17:24 Active Cardiac Monitoring DIRECTED Care 03/01/19 14:19 Active DVT/PE Risk Assess/Protocol [QM] ORDERED Care 03/01/19 17:24 Active Finger Stick Blood Sugar (ED) DIRECTED Care 03/01/19 14:12 Active Notify MD if DIRECTED Care 03/01/19 14:12 Active Oxygen Therapy- ED Nursing DIRECTED Care 03/01/19 14:19 Active Saline Loc NOW Care 03/01/19 14:12 Active Straight Catheterization ORDERED Care 03/01/19 14:[address] HEAD W/O CONTRAST [CT] Stat Exams 03/01/19 14:12 Completed cxr [CHEST-PORTABLE] [RAD] Stat Exams 03/01/19 14:19 Completed ABG [RESP] Routine Lab 03/01/19 14:30 Completed ABG [RESP] Routine Lab 03/02/19 06:00 Uncollected ACETAMINOPHEN [TDM] Stat Lab 03/01/19 14:31 Completed ALCOHOL BLOOD Stat Lab 03/01/19 14:31 Completed BLOOD CULTURE [BLDCUL] Stat Lab 03/01/19 17:00 Results CBC WITH ELECTRONIC DIFF [HEME] Stat Lab 03/01/19 14:31 Completed CK PROFILE [SP CHEM] Stat Lab 03/01/19 14:31 Completed COMPREHENSIVE METABOLIC PANEL [CHEM] Stat Lab 03/01/19 14:31 Completed LACTATE, PLASMA [CHEM] Stat Lab 03/01/19 14:43 Ordered MAGNESIUM [CHEM] Stat Lab 03/01/19 14:31 Completed PHENYTOIN [TDM] Stat Lab 03/01/19 14:31 Completed PROTIME WITH INR [COAG] Stat Lab 03/01/19 14:31 Completed PTT [COAG] Stat Lab 03/01/19 14:31 Completed SALICYLATES [TDM] Stat Lab 03/01/19 14:31 Completed TROPONIN T Stat Lab 03/01/19 14:31 Completed URINALYSIS W/POSS RFLX CULT [URINALYSIS] Stat Lab 03/01/19 14:38 Results URINE CULTURE [RM] Routine Lab 03/01/19 17:29 Ordered URINE DRUG SCREEN Stat Lab 03/01/19 14:38 Completed 0.9% Sodium Chloride Inj [Ns] 1,000 ml Med 03/01/19 17:30 Active IV 125 mls/hr 0.9% Sodium Chloride Inj [Ns] 1,000 ml Med 03/01/19 14:46 Discontinued IV 999 mls/hr CefTRIAXONE [Rocephin] 1 gm Med 03/01/19 16:43 Discontinued 0.9% Sodium Chloride Inj [Ns] 50 ml IV NOW Enoxaparin [Lovenox] Med 03/01/19 17:30 Active 40 mg SUBQ Q24H Levetiracetam [Keppra] 1,000 mg Med 03/01/19 16:39 Discontinued 0.9% Sodium Chloride Inj [Ns] 100 ml IV NOW Levetiracetam [Keppra] 1,000 mg Med 03/01/19 17:30 Active 0.9% Sodium Chloride Inj [Ns] 100 ml IV Q12H Levetiracetam [Keppra] 1,000 mg Med 03/02/19 05:00 Active 0.9% Sodium Chloride Inj [Ns] 100 ml IV Q12H Lorazepam [Ativan] Med 03/01/19 17:24 Active 1 mg IV Q2H PRN PRN Magnesium Sulfate 2 gm/S.w.i. [Magnesium Sulfate 2 gm/S Med 03/01/19 16:40 Discontinued .w.i] 2 gm in 50 ml IV NOW Ondansetron [Zofran] Med 03/01/19 17:24 Active 4 mg IV Q4H PRN PRN Altered Mental Status Stat Oth 03/01/19 14:19 Ordered Seizure, New Onset Stat Oth 03/01/19 14:11 Ordered EKG [EKG] Stat Ther 03/01/19 14:19 Ordered Transfer/Admit Order [TRANSFER] Routine Transfer 03/01/19 17:17 Ordered Result Diagrams: 03/01/19 14:31 03/01/19 14:31 - REASSESSMENT Reassessment #1 Time Reassessed: 14:47 (noted met alk with mild resp compensatin, will start with saline bolus.) Departure - Departure Date of Disposition Decision: 03/01/19 Time of Disposition Decision: 17:48 DIAGNOSIS: Altered mental state, Dilantin level too low Disposition: ADMITTED INPATIENT 09 Certified Medical Emergency: Emergent Condition: Stable Referrals and Follow-Ups: None,PCP [Primary Care Provider] - - Critical Care Note This patient required my direct & personal management of CC.: No Attestation - Physician/ LINDSEY Attestation The physician spent face to face time with patient:: Yes Advanced Practice Provider documentation review:: Supervising physician onsite and consulted in the evaluation and care of this patient. The physician did have a face to face encounter with the patient. - NIH Stroke Scale NIH Type: Initial Evaluation
[2019-03-01] MEDS ORDERED: NS 1,000 ML IV ONE (14:46)
[2019-03-01 15:10] LABS: UR AMPHETAMINES QUAL NONE DETECTED (NONE DETECT); UR BARBITUATES QUAL NONE DETECTED (NONE DETECT); UR BENZODIAZEPIN QUAL NONE DETECTED (NONE DETECT); UR CANNABINOIDS QUAL NONE DETECTED (NONE DETECT); UR COCAINE QUAL NONE DETECTED (NONE DETECT); UR METHADONE QUAL NONE DETECTED (NONE DETECT); UR OPIATES QUAL NONE DETECTED (NONE DETECT); UR OXYCODONE QUAL NONE DETECTED (NONE DETECT); UR PCP QUAL NONE DETECTED (NONE DETECT)
[2019-03-01 15:12] LABS: ACETAMINOPHEN < 1.2 ug/mL (10-30); AGAP 14; ALB/GLOB RATIO 1.9; ALBUMIN 4.8 g/dL (3.5-5.0); ALKALINE PHOSPHATASE 182 U/L (32-104); BUN 27 mg/dL (8-22); CALCIUM 10.5 mg/dL (8.8-10.2); CHLORIDE 92 mmol/L (98-107); CK PROFILE 102 U/L (24-173); COSMO 293; CREATININE 0.8 mg/dL (0.5-0.9); ESTIMATED GFR > 60; GLUCOSE 183 mg/dL (70-104); GOT 18 U/L (10-30); GPT 12 U/L (10-36); MAGNESIUM 1.1 mg/dL (1.5-2.7); POTASSIUM 3.5 mmol/L (3.5-5.1); SALICYLATES < 3.00 mg/dL (3-10); SODIUM 142 mmol/L (136-145); TCO2 36 mmol/L (25-35); TOTAL BILIRUBIN 0.37 mg/dL (0.20-1.00); TOTAL PROTEIN 7.3 g/dL (6.3-8.3)
--- NOTE | 2019-03-01 15:13 | Diag Imaging Result Doc PS360 ---
EXAM: CT HEAD W/O CONTRAST 03/01/2019 HISTORY: seizure TECHNIQUE: This exam was performed using automated exposure control, adjustment of mA or kV according to patient size, and/or use of iterative reconstruction technique. COMMENT: There is no evidence of mass effect, bleed, or abnormal extra-axial fluid collection. The visualized paranasal sinuses are clear. The calvarium is intact. IMPRESSION: No evidence of acute intracranial disease. Electronically signed by Prince Major 03/01/2019 3:10 PM
--- NOTE | 2019-03-01 15:18 | Diag Imaging Result Doc PS360 ---
EXAM: CHEST-PORTABLE 03/01/2019 HISTORY: ams TECHNIQUE: Erect AP portable at 1511 COMMENT: There is no evidence of acute cardiac or pulmonary disease. There are surgical clips in the right axilla and a Port-A-Cath is present on the left. Compared to 01/29/2019 considering differences in technique there has been no significant change. IMPRESSION: No acute disease. Electronically signed by Prince Major 03/01/2019 3:16 PM
[2019-03-01 15:24] LABS: BASO# 0.02 X1000 (0.0-0.2); BASO% 0.2 % (0.0-0.8); HEMATOCRIT 34.8 % (37.0-47.0); HEMOGLOBIN 11.4 g/dL (12.0-16.0); IMM GRAN# 0.05 X1000 (0.0-0.04); IMM GRAN% 0.4 % (0.0-0.5); LYMPH# 1.19 X1000 (1.2-3.4); LYMPH% 9.7 % (20.5-51.1); MCH 28.4 PG (27-31); MCHC 32.8 g/dL (33-37); MCV 86.8 FL (81-99); MONO# 1.33 X1000 (0.11-0.59); MONO% 10.8 % (1.7-9.3); MPV 9.6 FL (7.4-10.4); NEUT# 9.73 X1000 (1.4-6.5); NEUT% 78.9 % (42.2-75.2); PLT 264 X1000 (130-400); RBC 4.01 XMIL (4.2-5.4); RDW 11.3 % (11.5-14.5); WBC 12.32 X1000 (4.8-10.8)
[2019-03-01 15:36] LABS: INR 1.25; PROTIME 16.7 Seconds (11.0-16.0)
[2019-03-01 15:37] LABS: PTT 28.1 Seconds (22.3-41.8)
[2019-03-01] MEDS ORDERED: KEPPRA 1,000 MG in NS 100 ML IV ONE (16:39)
[2019-03-01] MEDS ORDERED: MAGNESIUM SULFATE 2 GM/S.W.I. 2 GM/50 ML IVPB IV ONE (16:40)
[2019-03-01] MEDS ORDERED: ROCEPHIN 1 GM in NS 50 ML IV ONE (16:43)
[2019-03-01] MEDS ORDERED: KEPPRA 1,000 MG in NS 100 ML IV SCH (17:30)
[2019-03-01 17:43] LABS: URINE SOURCE CATH
[2019-03-01 17:47] LABS: BILIRUBIN URINE SMALL (NEGATIVE); BLOOD URINE NEGATIVE (NEGATIVE); COLOR ORANGE; GLUCOSE URINE TRACE mg/dL (NEGATIVE); KETONE URINE 40 mg/dL (NEGATIVE); LEUKOCYTES URINE NEGATIVE (NEGATIVE); NITRITE URINE NEGATIVE (NEGATIVE); PROTEIN URINE 200 mg/dL (NEGATIVE); TURBIDITY URINE HAZY (CLEAR); UR EPITHELIAL CELLS >10 /HPF (<10); URINE BACTERIA NEGATIVE /HPF; URINE WBC <10 /HPF (<10); UROBILINOGEN URINE NORMAL (NORMAL)
--- NOTE | 2019-03-01 18:12 | HISTORY AND PHYSICAL ---
CHIEF COMPLAINT: Seizure. HISTORY OF PRESENT ILLNESS: This is a 58-year-old female who was brought to the emergency department because of seizures. At this point, the patient is postictal. The patient is not able to provide any information, so the information here is being provided by ER physician and ER notes. Apparently, it was reported by father that this patient was found at home by a friend who came at noon, and she was in the floor, showing some signs of seizure and she was altered, so EMS was called and she was brought to the emergency department. Apparently, father talked with ER nurse here, and apparently she was not taking her medication that she is supposed to. Upon ER evaluation, she was found to have a white cell count that was elevated 12.32, with an ABG that shows pH 7.35 with pCO2 of 36 and pO2 of 73. Also the magnesium was low, and the phenytoin level was 2.9. The patient is going to be admitted for further evaluation of persistent seizures. PAST MEDICAL HISTORY: 1. Seizure disorder. 2. Anxiety disorder. 3. COPD, not in exacerbation now. 4. Hypertension. 5. History of breast cancer. PAST SURGICAL HISTORY: Bilateral mastectomy, left port placement, and back and neck surgery. FAMILY HISTORY: Noncontributory. SOCIAL HISTORY: The patient lives alone. The patient continues to smoke 1 pack per day. Of course, at this point, she is not able to tell me for how long. She does not drink any alcohol and denies any illicit drugs. ALLERGIES: She is allergic to hydrocodone. REVIEW OF SYSTEMS: Not possible to obtain because of the mental status of the patient. PHYSICAL EXAMINATION: VITAL SIGNS: Temperature 98.8 degrees, heart rate 109, respiratory rate 14, blood pressure 112/85, O2 saturation 93% on room air. GENERAL: This is a chronically ill-appearing, 58-year-old female lying in bed, in no acute distress. HEENT: Head is normocephalic, atraumatic. Mucous membranes dry. NECK: No JVD noted. No carotid bruits. No lymphadenopathy. No thyromegaly. CARDIOVASCULAR: S1, S2 heard. No murmurs, gallops, or rubs. Regular rate and rhythm. RESPIRATORY: Decreased breath sounds globally with some wheezing in both pulmonary bases. The patient is not using any accessory muscles or having work of breathing. ABDOMEN: Soft. A little bit distended. Nontender to palpation. Bowel sounds present. No organomegaly. EXTREMITIES: No clubbing, cyanosis, or edema. Peripheral pulses present in both legs. NEUROLOGIC: The patient is postictal, does not follow any commands. Apparently, she moves 4 extremities spontaneously. LABORATORY DATA: White cell count 12.32, hemoglobin 11.4, hematocrit 34.8, platelets 264,000. ABG shows pH 7.65 with pCO2 of 36, pO2 of 73, with a BMP that is basically grossly remarkable. Phenytoin 2.9. ASSESSMENT AND PLAN: 1. Seizures and history of noncompliance. Unfortunately, this patient has been brought to the emergency department again because of seizures, and of course, again we found out that this patient's levels of phenytoin are low. Apparently, the father here reports that she is not taking her medication that she is supposed to. That is actually a big problem, and I do not think by changing the phenytoin to something different will be more convenient for the patient, considering that she is noncompliant anyway. At this point, in the ER she has been started on Keppra, so we will continue with Keppra 1 g IV q.12 hours. We will provide Ativan p.r.n. and IV fluids. We will send this patient to the ICU for further monitoring. On my evaluation, I have not found any signs of sphincter incontinence or tongue biting. We will do Accu-Cheks every 4 hours. 2. Leukocytosis. From the ER, she was started on antibiotics, in this case, Rocephin. It is not possible to evaluate if this patient has an infection or not because she is unable to provide any information. She has been given Rocephin 1 g IV q.24 hours. We have ordered urine culture and urinalysis, but those are still pending. At this point, we will hold any antibiotics for now. 3. Postictal state secondary to seizure. Aware. We will monitor this patient closely. 4. Hypertension. At this point, blood pressure is okay. We will provide IV fluids. We are not going to restart any blood pressure medication at this time. 5. We will continue to monitor this patient closely at this time. cc: Papa Villanueva MD
[2019-03-01] MEDS: LOVENOX SUBQ SCH (18:31)
[2019-03-01] MEDS: NS 1,000 ML IV SCH (20:30)
[2019-03-02] MEDS ORDERED: OFIRMEV 1000 MG/ISOTONIC SOLN 1,000 MG/100 ML BOTTLE IV ONE (01:49)
[2019-03-02] MEDS ORDERED: TYLENOL PR PRN (02:00)
[2019-03-02] MEDS: NS 1,000 ML IV SCH ×2 (02:55→14:08)
[2019-03-02] MEDS ORDERED: LABETALOL IV ONE (04:28)
[2019-03-02] MEDS: KEPPRA 1,000 MG in NS 100 ML IV SCH ×2 (04:46→16:21)
[2019-03-02 05:46] LABS: BASO# 0.02 X1000 (0.0-0.2); BASO% 0.1 % (0.0-0.8); EOS# 0.01 X1000 (0.0-0.7); EOS% 0.1 % (0.0-10.0); HEMATOCRIT 36.1 % (37.0-47.0); HEMOGLOBIN 11.8 g/dL (12.0-16.0); IMM GRAN% 0.5 % (0.0-0.5); LYMPH# 2.12 X1000 (1.2-3.4); LYMPH% 12.5 % (20.5-51.1); MCH 28.7 PG (27-31); MCHC 32.7 g/dL (33-37); MCV 87.8 FL (81-99); MONO# 1.69 X1000 (0.11-0.59); MONO% 9.9 % (1.7-9.3); MPV 9.8 FL (7.4-10.4); NEUT# 13.08 X1000 (1.4-6.5); NEUT% 76.9 % (42.2-75.2); PLT 275 X1000 (130-400); RBC 4.11 XMIL (4.2-5.4); RDW 11.9 % (11.5-14.5); WBC 17.01 X1000 (4.8-10.8)
[2019-03-02 05:47] LABS: IMM GRAN# 0.09 X1000 (0.0-0.04)
[2019-03-02 06:09] LABS: AGAP 14; BUN 33 mg/dL (8-22); CALCIUM 9.6 mg/dL (8.8-10.2); CHLORIDE 99 mmol/L (98-107); COSMO 295; CREATININE 0.9 mg/dL (0.5-0.9); ESTIMATED GFR > 60; GLUCOSE 145 mg/dL (70-104); MAGNESIUM 1.6 mg/dL (1.5-2.7); POTASSIUM 3.7 mmol/L (3.5-5.1); SODIUM 143 mmol/L (136-145); TCO2 30 mmol/L (25-35)
[2019-03-02] MEDS ORDERED: APRESOLINE IV PRN (06:14)
[2019-03-02 06:18] LABS: BLOOD TYPE ARTERIAL; SAMPLE BLOOD
[2019-03-02 06:19] LABS: ALLEN TEST YES; BE 8.7 mmoll (-3.0-3.0); HCO3-(ACT) 31.6 mmoll (20.0-26.0); METHB 0.8 % (0.0-1.5); MODALITY ROOM AIR; O2(CT) 16.3 mL/dL (15.0-23.0); O2HB 93.2 % (95.0-99.0); PCO2(98.6) 36 mmHg (35-45); PO2(98.6) 60 mmHg (60-100); SAO2 95.2 % (95.0-100.0); THB 12.4 g/dL (11.5-17.4); pH(98.6) 7.55 (7.35-7.45)
[2019-03-02] MEDS: ATIVAN IV PRN (07:21)
[2019-03-02] MEDS ORDERED: VANCOMYCIN IV PER PHARMACY MISC SCH (08:15)
[2019-03-02] MEDS ORDERED: DUONEB (A & A) INH PRN (08:19)
[2019-03-02] MEDS ORDERED: NORCURON ONE (08:36)
[2019-03-02] MEDS ORDERED: VERSED ONE (08:37)
[2019-03-02] MEDS ORDERED: QUELICIN ONE (08:37)
[2019-03-02] MEDS ORDERED: AMIDATE ONE ×2 (08:37→09:10)
[2019-03-02] MEDS: DIPRIVAN 1% 1,000 MG/100 ML BOTTLE IV SCH ×6 (09:01→21:56)
[2019-03-02] MEDS ORDERED: AMIDATE IV ONE (09:02)
[2019-03-02] MEDS ORDERED: QUELICIN IV ONE (09:02)
[2019-03-02] MEDS ORDERED: QUELICIN (DOSE) ONE (09:10)
[2019-03-02] MEDS ORDERED: SODIUM CHLORIDE 0.9% INJ SCH (09:30)
--- NOTE | 2019-03-02 09:32 | Diag Imaging Result Doc PS360 ---
EXAM: CHEST-PORTABLE HISTORY: ett placement TECHNIQUE: Portable chest COMPARISON: 03/01/2019 FINDINGS: An endotracheal tube has been placed since the prior study. The tip is in good position 3 to 4 cm above the cynthia. The lungs are well expanded and clear. No infiltrates. No cardiomegaly. No pulmonary edema. No change in the left portacatheter. IMPRESSION: Endotracheal tube in good position. Electronically signed by Mike Crowder 03/02/2019 9:30 AM
[2019-03-02] MEDS ORDERED: VANCOMYCIN 1.5 GM in NS 250 ML IV ONE (10:00)
[2019-03-02] MEDS: PROTONIX IV SCH (10:04)
[2019-03-02] MEDS: DUONEB (A & A) INH SCH ×4 (11:02→23:30)
[2019-03-02 11:29] LABS: ALLEN TEST YES; BE 8.9 mmoll (-3.0-3.0); BLOOD TYPE ARTERIAL; HCO3-(ACT) 31.9 mmoll (20.0-26.0); METHB 0.9 % (0.0-1.5); O2(CT) 15.9 mL/dL (15.0-23.0); O2HB 97.7 % (95.0-99.0); PCO2(98.6) 41 mmHg (35-45); PO2(98.6) 249 mmHg (60-100); SAMPLE BLOOD; SAO2 99.6 % (95.0-100.0); SRATE 16 BPM; THB 11.1 g/dL (11.5-17.4); TVOL 50 mL; pH(98.6) 7.51 (7.35-7.45)
[2019-03-02 11:30] LABS: MODALITY VENTILATOR
--- NOTE | 2019-03-02 12:31 | Diag Imaging Result Doc PS360 ---
EXAM: CT THORAX/ABDOMEN W/CONTRAST HISTORY: sepsis unknown source TECHNIQUE: Emergency CT chest and abdomen with contrast RADIATION WARNING due to the large number CTs. Consider alternative imaging in the future. COMPARISON: 01/26/2018 FINDINGS: Chest: No pleural effusions. No thoracic aortic aneurysm or dissection. No cardiomegaly. No central pulmonary emboli. No enlarged lymph nodes. Endotracheal tube in good position. Moderate emphysema. Scarring in the right apex. There are surgical clips in the right axilla. No consolidation. No bronchiectasis. ABDOMEN: Motion degrades image quality. Mild fatty infiltration of the liver. No calcified gallstones. Normal spleen, pancreas, adrenal glands, and kidneys. Severe atherosclerosis. No bowel obstruction. Subluxation of L5 on the sacrum. IMPRESSION: Chest: Stable exam ABDOMEN: No acute abdominal abnormality This exam was performed using automated exposure control, adjustment of mA or kV according to patient size, and/or use of iterative reconstruction technique. Electronically signed by Mike Crowder 03/02/2019 12:29 PM
--- NOTE | 2019-03-02 12:32 | Diag Imaging Result Doc PS360 ---
EXAM: CT HEAD W/O CONTRAST HISTORY: worsening encephalopathy TECHNIQUE: CT head without contrast RADIATION WARMING due to the large number of CTs. Consider alternative imaging in the future. COMPARISON: 03/01/2019 FINDINGS: No parenchymal hemorrhage. No epidural or subdural hematoma. No subarachnoid hemorrhage. No mass identified on this noncontrasted exam. No hydrocephalus. No sinus opacification. IMPRESSION: No hemorrhage. No change. This exam was performed using automated exposure control, adjustment of mA or kV according to patient size, and/or use of iterative reconstruction technique. Electronically signed by Mike Crowder 03/02/2019 12:30 PM
--- NOTE | 2019-03-02 13:44 | Diag Imaging Result Doc PS360 ---
EXAM: CHEST-PORTABLE HISTORY: cvl placement TECHNIQUE: Portable chest single view COMPARISON: 03/02/2019 at 8:55 AM FINDINGS: Interval placement of a right jugular line. The tip is near the junction of superior vena cava and right atrium. There is no pneumothorax. No other interval change. Endotracheal tube remains in good position. IMPRESSION: No postprocedural pneumothorax. Electronically signed by Mike Crowder 03/02/2019 1:42 PM
[2019-03-02] MEDS: ZOSYN 3.375 GM in NS 50 ML IV SCH ×2 (14:02→20:08)
[2019-03-02] MEDS: OFIRMEV 1000 MG/ISOTONIC SOLN 1,000 MG/100 ML BOTTLE IV PRN (14:02)
--- NOTE | 2019-03-02 14:22 | PROGRESS NOTE ---
DATE: 03/02/2019 SUBJECTIVE: Patient according to nursing staff has been very restless, agitated, and also has been very tachypneic with a respiratory rate in the 40s and 50s. She is still confused, agitated. She started spiking fever. OBJECTIVE: Vital Signs: Temperature 101.6 degrees, heart rate 122, respiratory rate 45, blood pressure 93/102, O2 saturation 100% on Venturi mask at 50%. General Examination: This is a chronically ill appearing, 58-year-old female lying in bed, in respiratory distress. Tachypneic, confused. HEENT: Head is normocephalic, atraumatic. Mucous membranes dry. Neck: No JVD noted. No carotid bruits. No lymphadenopathy. No thyromegaly. Cardiovascular: S1, S2 heard. Tachycardic. No murmurs, gallops, or rubs noted. Respiratory: Wheezing all over both pulmonary bases. Patient is using accessory muscles. No work of breathing noted. Abdomen: Soft. A little bit distended but nontender to palpation. Bowel sounds present. No organomegaly. Extremities: No clubbing, cyanosis, or edema. Peripheral pulses present in both legs. Neurological: Patient is altered, confused, does not follow commands. Does not answer any question, is very restless. Moves 4 extremities spontaneously, shivering. LABORATORY DATA: White cell count 17.01, hemoglobin 11.9, hematocrit 36.1, platelets 275,000 with ABG that shows pH 7.55 with pCO2 36, PO2 62. Normal BMP. ASSESSMENT AND PLAN: 1. Acute hypoxemic respiratory failure. Patient has become very tachypneic and agitated and restless. I do not know at this point what exactly is going on with this patient. I do not know if because of this issue she has aspirated. The chest x-ray done on admission did not show any remarkable finding. At this point, considering her tachypnea, we are going to consult pulmonary and will intubate this patient. 2. Sepsis of unknown source. Patient white cell count started getting higher. The patient started spiking fever as well. At this point, we do not know exactly the source of infection but I do prefer to start this patient on antibiotics. In this case, vancomycin and Zosyn. We will consult Pulmonary for further evaluation and treatment. 3. Seizure disorder. The patient has been brought to the hospital because of seizure episode. Yesterday, she looked like she was postictal but her mental status is still the same. I think at this point, we are going to intubate her and probably if she continues to be restless, we may need to recheck a CAT scan of the head tomorrow. At this point, patient is on Keppra IV. We will continue with same management. 4. Hypertension. Because this patient's resting blood pressure is pretty much high, at this point we will continue with hydralazine p.r.n. and see how this patient does. 5. Critical care time of 55 minutes. cc: Papa Villanueva MD
[2019-03-02] MEDS: LOVENOX SUBQ SCH (16:30)
[2019-03-03] MEDS: NS 1,000 ML IV SCH ×3 (00:06→13:36)
--- NOTE | 2019-03-03 00:10 | OPERATIVE NOTE ---
PROCEDURE DATE: 03/02/2019 PREOP DIAGNOSIS: 1. Seizures. 2. Leukocytosis. 3. Hypertension. 4. Poor peripheral access. POSTOP DIAGNOSIS: 1. Seizures. 2. Leukocytosis. 3. Hypertension. 4. Poor peripheral access. PROCEDURE: Ultrasound-guided central venous catheter placement. SURGEON: Santi Townsend MD. ESTIMATED BLOOD LOSS: 3 mL. COMPLICATIONS: None apparent. FINDINGS: The right internal jugular vein was found with ultrasound. It was compressible, patent without thrombus. TECHNIQUE: She was placed in Trendelenburg in her ICU bed. The right neck was prepped and draped in usual sterile fashion. 1% lidocaine was used to anesthetize the skin over the vein. The vein was accessed under ultrasound guidance. The wire passed through the needle into the vein. The wire would only go in about 10 to 12 cm. I threaded the dilator over the wire into the vein and removed the wire. I then passed the wire down through the dilator and it went in much better this time and I removed the dilator with a wire inside at about 20 to 25 cm. I then passed the triple-lumen catheter over the wire via the Seldinger technique. The wire was removed. All ports kailey back blood easily and were flushed with saline. The hub of the port was anchored to the skin with silk suture. A sterile dressing was applied. There were no apparent complications. cc: Santi Townsend MD
[2019-03-03] MEDS: DIPRIVAN 1% 1,000 MG/100 ML BOTTLE IV SCH ×9 (00:47→21:33)
[2019-03-03] MEDS: ZOSYN 3.375 GM in NS 50 ML IV SCH ×4 (02:37→20:02)
[2019-03-03] MEDS: DUONEB (A & A) INH SCH ×6 (03:30→23:30)
[2019-03-03 04:30] LABS: ALLEN TEST NO; BE 0.7 mmoll (-3.0-3.0); BLOOD TYPE ARTERIAL; HCO3-(ACT) 25.5 mmoll (20.0-26.0); METHB 1.3 % (0.0-1.5); O2(CT) 13.7 mL/dL (15.0-23.0); O2HB 96.9 % (95.0-99.0); PCO2(98.6) 40 mmHg (35-45); PO2(98.6) 111 mmHg (60-100); SAMPLE BLOOD; SAO2 99.1 % (95.0-100.0); SRATE 16 BPM; THB 9.9 g/dL (11.5-17.4); TVOL 500 mL; pH(98.6) 7.41 (7.35-7.45)
[2019-03-03 04:31] LABS: MODALITY VENTILATOR
[2019-03-03] MEDS: KEPPRA 1,000 MG in NS 100 ML IV SCH ×2 (04:32→16:11)
[2019-03-03 06:36] LABS: BASO# 0.02 X1000 (0.0-0.2); BASO% 0.2 % (0.0-0.8); EOS# 0.05 X1000 (0.0-0.7); EOS% 0.5 % (0.0-10.0); HEMATOCRIT 30.4 % (37.0-47.0); IMM GRAN# 0.02 X1000 (0.0-0.04); IMM GRAN% 0.2 % (0.0-0.5); LYMPH# 1.99 X1000 (1.2-3.4); LYMPH% 18.7 % (20.5-51.1); MCH 29.2 PG (27-31); MCHC 32.9 g/dL (33-37); MCV 88.9 FL (81-99); MONO# 1.04 X1000 (0.11-0.59); MONO% 9.8 % (1.7-9.3); MPV 10.5 FL (7.4-10.4); NEUT# 7.54 X1000 (1.4-6.5); NEUT% 70.6 % (42.2-75.2); PLT 187 X1000 (130-400); RBC 3.42 XMIL (4.2-5.4); RDW 12.2 % (11.5-14.5); WBC 10.66 X1000 (4.8-10.8)
--- NOTE | 2019-03-03 07:26 | CONSULTATION ---
DATE OF CONSULTATION: 03/02/2019 REQUESTING PROVIDER: Dr. Papa Quintero. REASON FOR CONSULTATION: Acute respiratory failure. HISTORY OF PRESENT ILLNESS: This is a 58-year-old female with a medical history of COPD, seizure, anxiety, hypertension, and breast cancer. She presented to the ER yesterday via EMS with seizure activity and altered mental status. Initial workup in the ER revealed low phenytoin level and leukocytosis. She has been admitted to the ICU for further evaluation and management. Apparently, overnight, patient developed fever up to 104 degrees. This morning patient still had fever, she became restless and agitated. Her breathing was very labored with respiration rate up to 50s. She was put on a Venti mask and eventually required intubation. At the time of my examination, patient is intubated and sedated. There is no family at the bedside. And all information is collected from the [facility]. PAST MEDICAL AND SURGICAL HISTORY: 1. COPD. 2. Seizure. 3. Anxiety. 4. Hypertension. 5. Breast cancer, status post bilateral mastectomy. 6. Left port placement. 7. Back and neck surgery. SOCIAL HISTORY: Per H and P, patient lives alone. She smokes 1 pack per day. She has no history of alcohol or illicit drug use. FAMILY HISTORY: Unknown. ALLERGIES: Hydrocodone. REVIEW OF SYSTEMS: Unable to be obtained. PHYSICAL EXAMINATION: Vital Signs: Temperature is a 101.8, blood pressure 160/100, pulse 119, respiratory rate 30, oxygen saturation 100% on AC mechanical ventilator with spontaneous rate 16, FiO2 60%, tidal volume 500, and PEEP 5. General: Chronically ill-appearing, lying in bed, intubated, on a cooling blanket. Left arm extended with left wrist rotated. HEENT: Atraumatic. Trachea midline. Mucosa pink and moist. Respiratory: Mechanically ventilated. Symmetrical excursion. Tachypnea. Clear to auscultation. Cardiovascular: Regular rate and rhythm. Sinus tachycardia. Gastrointestinal: Bowel sounds hypoactive in all 4 quadrants. Soft, nondistended. Extremities: No pedal edema. No cyanosis. No clubbing. Neurologic: Sedated, unresponsive. LAB DATA: White blood cells 7.01, hemoglobin 11.8, hematocrit 36.1, platelet 275,000. Sodium 143, potassium 3.7, chloride 99, carbon dioxide 40, BUN 33, creatinine 0.9. Glucose 145. ABG 7.55, pCO2 of 36, PO2 of 60, HCO3 31.6, base excess 8.7, oxyhemoglobin 93.2 and lactate 2.30 at room air. IMAGING DATA: Chest x-ray showed an endotracheal tube in good position. The lungs are well expanded and clear. No infiltrates, no cardiomegaly, no pulmonary edema. Head CT showed no hemorrhage. No change. CT thorax, abdomen with contrast reveals stable chest exam. No acute abdominal abnormality. ASSESSMENT: This is a 58-year-old female with medical history of COPD, seizure, anxiety, hypertension, breast cancer. She has been admitted to the ICU since yesterday with seizure activity likely secondary to low phenytoin due to medical noncompliance, altered mental status, and leukocytosis. 1. Acute hypoxemic respiratory failure. 2. Sepsis of unknown source. 3. Seizure disorder. PLAN: 1. Continue AC mechanical ventilator and we will start weaning trials when appropriate. 2. Continue antibiotic and bronchodilators. 3. Follow up with ABG, CBC, CMP, urine culture, and blood culture. 4. Continue GI and DVT prophylaxis. 5. Further recommendation pending hospital course. Thank you for the courtesy of this consult. Dictated by RAY Petit for Chery Denton MD cc: RAY Petit MD [facility]
[2019-03-03 07:32] LABS: AGAP 17; BUN 22 mg/dL (8-22); CALCIUM 8.4 mg/dL (8.8-10.2); CHLORIDE 101 mmol/L (98-107); COSMO 287; CREATININE 0.5 mg/dL (0.5-0.9); ESTIMATED GFR > 60; GLUCOSE 138 mg/dL (70-104); MAGNESIUM 1.4 mg/dL (1.5-2.7); POTASSIUM 2.7 mmol/L (3.5-5.1); SODIUM 141 mmol/L (136-145); TCO2 23 mmol/L (25-35)
[2019-03-03 08:54] LABS: INR 0.97; PROTIME 13.7 Seconds (11.0-16.0)
[2019-03-03 08:55] LABS: PTT 29.6 Seconds (22.3-41.8)
[2019-03-03] MEDS: POTASSIUM CHLORIDE 60 MEQ in NS 500 ML IV SCH ×2 (09:19→16:11)
[2019-03-03] MEDS ORDERED: MAGNESIUM SULFATE 2 GM/S.W.I. 2 GM/50 ML IVPB IV ONE (09:20)
[2019-03-03] MEDS: PROTONIX IV SCH (09:25)
[2019-03-03 09:26] LABS: CK INDEX 7.4 (0.0-2.5); CK-MB 14.34 ng/mL (0.0-5.0)
--- NOTE | 2019-03-03 10:05 | PROGRESS NOTE ---
DATE: 03/03/2019 SUBJECTIVE: The patient is sedated and intubated. She is on propofol at 80 mg per hour. Sometimes she got a little bit restless. No other issues noted as per nursing staff overnight. OBJECTIVE: Vital Signs: Temperature 99.0 degrees, heart rate 74, respiratory 21, blood pressure 167/91, O2 saturation 100% on mechanical ventilator. General Examination: This is a chronically ill appearing, 58-year-old, female lying in bed, sedated and intubated. HEENT: Head is normocephalic and atraumatic. Mucous membranes are dry. Neck: No JVD noted. No carotid bruits. No lymphadenopathy. No thyromegaly. Cardiovascular Examination: S1 and S2 heard. Tachycardic. No murmurs, gallops, or rubs noted. Respiratory Examination: Some wheezing noted in both pulmonary bases. Patient is not using any accessory muscles or having work of breathing. Abdomen: Soft. A little bit distended but nontender to palpation. Bowel sounds present. No organomegaly. Extremities: No clubbing, cyanosis, or edema. Peripheral pulses present in both legs. Neurological Examination: The patient is sedated and intubated. Laboratory Data: White cell count 10.66, hemoglobin 10.0, hematocrit 30.4, platelets 187,000. ABG shows pH 7.41 with pCO2 40 and PO2 of 111. That was taken on the ventilator at FiO2 of 40%. BMP shows potassium 2.7 with normal creatinine. Magnesium is 1.4. ASSESSMENT AND PLAN: 1. Acute hypoxemic respiratory failure, on the ventilator. The patient has been intubated because she became very tachypneic and agitated. Now, she looks much better. She is requiring oxygen at FiO2 of 40%. Pulmonary, Dr. Denton, following this patient. We will follow recommendations. 2. Sepsis of unknown source. We were informed that the patient's blood are culture positive for gram-positive cocci. The patient has been started on vancomycin and Zosyn. So far, leukocytosis is resolved. The CT of the chest, abdomen, and pelvis was unremarkable. At this point, we will continue with the same management. 3. Seizure disorder. Patient is on Keppra 1 g intravenous every 12 hours. We will continue with the same management. It is important to remark that there is a history of noncompliance with medications. When she came in, Dilantin level was low and she had been hospitalized less than a month ago for the same situation. 4. Hypertension. Blood pressure is still mildly elevated but better to what it was. We will continue with the same management. 5. Disposition. We will continue to monitor this patient closely. Prognosis of this patient is guarded. cc: Papa Villanueva MD
--- NOTE | 2019-03-03 13:33 | Diag Imaging Result Doc PS360 ---
EXAM: CHEST/ABD TUBE PLACEMENT HISTORY: ngt placement TECHNIQUE: Portable chest abdomen COMPARISON: 1:26 PM FINDINGS: A nasogastric tube has been placed. This overlies the esophagus and stomach. This appears to be in good position. Electronically signed by Mike Crowder 03/03/2019 1:31 PM
[2019-03-03] MEDS: APRESOLINE IV PRN ×2 (13:36→22:08)
[2019-03-03] MEDS: VANCOMYCIN 1.2 GM in NS 250 ML IV SCH (14:48)
[2019-03-03] MEDS: LOVENOX SUBQ SCH (16:29)
[2019-03-03] MEDS: ATIVAN IV PRN (23:03)
[2019-03-03] MEDS: OFIRMEV 1000 MG/ISOTONIC SOLN 1,000 MG/100 ML BOTTLE IV PRN (23:07)
[2019-03-04] MEDS: DIPRIVAN 1% 1,000 MG/100 ML BOTTLE IV SCH ×5 (00:32→10:21)
[2019-03-04] MEDS: NS 1,000 ML IV SCH ×3 (01:54→11:11)
[2019-03-04] MEDS: ZOSYN 3.375 GM in NS 50 ML IV SCH ×4 (01:54→19:10)
[2019-03-04] MEDS: DUONEB (A & A) INH SCH ×6 (03:32→23:01)
[2019-03-04] MEDS: ATIVAN IV PRN ×2 (03:38→13:54)
[2019-03-04] MEDS: KEPPRA 1,000 MG in NS 100 ML IV SCH ×2 (04:30→16:22)
[2019-03-04 04:54] LABS: BLOOD TYPE ARTERIAL; SAMPLE BLOOD
[2019-03-04 04:55] LABS: ALLEN TEST YES; BE -1.2 mmoll (-3.0-3.0); O2HB 97.1 % (95.0-99.0); PCO2(98.6) 39 mmHg (35-45); PO2(98.6) 137 mmHg (60-100); SAO2 98.5 % (95.0-100.0); SRATE 16 BPM; THB 10.8 g/dL (11.5-17.4); TVOL 500 mL; pH(98.6) 7.39 (7.35-7.45)
[2019-03-04 04:56] LABS: MODALITY VENTILATOR
[2019-03-04 05:43] LABS: AGAP 9; BUN 13 mg/dL (8-22); CALCIUM 7.9 mg/dL (8.8-10.2); CHLORIDE 112 mmol/L (98-107); COSMO 289; CREATININE 0.5 mg/dL (0.5-0.9); ESTIMATED GFR > 60; GLUCOSE 144 mg/dL (70-104); POTASSIUM 2.8 mmol/L (3.5-5.1); SODIUM 144 mmol/L (136-145); TCO2 23 mmol/L (25-35)
[2019-03-04] MEDS ORDERED: POTASSIUM CHLORIDE 40 MEQ/SWI 40 MEQ/100 ML IVPB IV ONE (06:00)
[2019-03-04 06:50] LABS: BASO# 0.02 X1000 (0.0-0.2); BASO% 0.3 % (0.0-0.8); EOS# 0.15 X1000 (0.0-0.7); EOS% 1.9 % (0.0-10.0); HEMATOCRIT 25.6 % (37.0-47.0); HEMOGLOBIN 8.3 g/dL (12.0-16.0); IMM GRAN# 0.05 X1000 (0.0-0.04); IMM GRAN% 0.6 % (0.0-0.5); LYMPH% 15.2 % (20.5-51.1); MCH 28.7 PG (27-31); MCHC 32.4 g/dL (33-37); MCV 88.6 FL (81-99); MONO% 7.6 % (1.7-9.3); NEUT% 74.4 % (42.2-75.2); PLT 158 X1000 (130-400); RBC 2.89 XMIL (4.2-5.4); RDW 12.2 % (11.5-14.5); WBC 7.92 X1000 (4.8-10.8)
[2019-03-04] MEDS ORDERED: POTASSIUM CHLORIDE 60 MEQ in NS 500 ML IV SCH (08:30)
[2019-03-04] MEDS: PROTONIX IV SCH (09:48)
--- NOTE | 2019-03-04 10:22 | PROGRESS NOTE ---
DATE: 03/04/2019 SUBJECTIVE: The patient continues to be sedated and intubated. No acute issues noted as per nursing staff overnight. OBJECTIVE: Vitals: Temperature 98.2 degrees, heart rate 80, respiratory rate 25, blood pressure 153/94, O2 saturation 98% on mechanical ventilator, FiO2 of 40% General Examination: This is a chronically ill-appearing 58-year-old female, lying in bed, sedated and intubated. HEENT: Head is normocephalic and atraumatic. Mucous membranes dry. Neck: No JVD noted. No carotid bruits. No lymphadenopathy. No thyromegaly. Cardiovascular: S1, S2 heard, tachycardic, but no murmurs, gallops, or rubs noted. Respiratory: Minimal wheezing noted still in both pulmonary bases. Patient not using any accessory muscles or having work of breathing. Abdomen: Soft, a little bit distended, but nontender to palpation. Bowel sounds present. No organomegaly. Extremities: No clubbing, cyanosis, or edema. Peripheral pulses present in both legs. Neurologic: Patient is sedated and intubated. LABORATORY DATA: White cell count 7.92, hemoglobin 8.3, hematocrit 25.6, platelets 158,000. BMP shows potassium 2.8. Phosphorus is low 2.2, magnesium is 1.8. ASSESSMENT AND PLAN: 1. Acute hypoxemic respiratory failure on ventilator. The patient is requiring oxygen at FiO2 at 40%. The patient is definitely much better, still requiring oxygen at FiO2 at 40%. No acute issues overnight, and Pulmonology is following this patient. We will follow their recommendation. 2. Sepsis of unknown source. We were informed that this patient has a blood culture that was 1/2 positive for coagulase-negative Staphylococcus. Now we confirmed that that was coagulase negative. Most likely, it is Staphylococcus epidermidis which is a contaminant. In any case, because this patient was spiking fever, and now, she has mild temperature, I will definitely prefer to continue with both antibiotics, in this case, vancomycin and Zosyn. 3. Seizure disorder. Patient is on Keppra 1 g IV q.12 h. It is important to remark that this patient is very noncompliant with medications. At this point, we will continue with the same medication. 4. Hypertension. Blood pressure is much better controlled. We will continue with same management. DISPOSITION: We will continue to monitor this patient closely. We will follow recommendations from Pulmonology. cc: Papa Villanueva MD
[2019-03-04] MEDS ORDERED: HALDOL IV PRN (12:30)
[2019-03-04] MEDS ORDERED: HALDOL IV ONE (12:30)
[2019-03-04] MEDS ORDERED: DILAUDID IV PRN (14:13)
[2019-03-04 14:18] LABS: ALLEN TEST YES; BE -2.6 mmoll (-3.0-3.0); BLOOD TYPE ARTERIAL; HCO3-(ACT) 22.9 mmoll (20.0-26.0); METHB 1.4 % (0.0-1.5); O2(CT) 12.9 mL/dL (15.0-23.0); O2HB 95.6 % (95.0-99.0); PCO2(98.6) 40 mmHg (35-45); PO2(98.6) 86 mmHg (60-100); SAMPLE BLOOD; SAO2 97.9 % (95.0-100.0); THB 9.5 g/dL (11.5-17.4); pH(98.6) 7.36 (7.35-7.45)
[2019-03-04 14:19] LABS: MODALITY VENTILATOR
[2019-03-04] MEDS: VANCOMYCIN 1.2 GM in NS 250 ML IV SCH (14:21)
[2019-03-04] MEDS: PRECEDEX 200 MICROGM in NS 48 ML IV SCH ×4 (15:36→23:42)
[2019-03-04] MEDS: APRESOLINE IV PRN (16:06)
[2019-03-04] MEDS ORDERED: LASIX IV ONE (16:12)
[2019-03-04] MEDS: LOVENOX SUBQ SCH (16:29)
[2019-03-05] MEDS: ZOSYN 3.375 GM in NS 50 ML IV SCH ×4 (01:03→19:29)
[2019-03-05] MEDS: PRECEDEX 200 MICROGM in NS 48 ML IV SCH ×4 (02:35→12:47)
[2019-03-05] MEDS: DUONEB (A & A) INH SCH ×6 (03:40→23:10)
[2019-03-05] MEDS: KEPPRA 1,000 MG in NS 100 ML IV SCH ×2 (04:16→16:00)
[2019-03-05 05:08] LABS: ALLEN TEST YES; BE 1.7 mmoll (-3.0-3.0); BLOOD TYPE ARTERIAL; HCO3-(ACT) 26.3 mmoll (20.0-26.0); PCO2(98.6) 32 mmHg (35-45); PO2(98.6) 159 mmHg (60-100); SAMPLE BLOOD; pH(98.6) 7.49 (7.35-7.45)
[2019-03-05 05:09] LABS: MODALITY BI PAP
[2019-03-05 05:15] LABS: BASO# 0.03 X1000 (0.0-0.2); BASO% 0.3 % (0.0-0.8); EOS# 0.14 X1000 (0.0-0.7); EOS% 1.2 % (0.0-10.0); HEMATOCRIT 25.4 % (37.0-47.0); HEMOGLOBIN 8.2 g/dL (12.0-16.0); IMM GRAN# 0.03 X1000 (0.0-0.04); IMM GRAN% 0.3 % (0.0-0.5); LYMPH# 0.92 X1000 (1.2-3.4); MCH 28.5 PG (27-31); MCHC 32.3 g/dL (33-37); MCV 88.2 FL (81-99); MONO# 0.75 X1000 (0.11-0.59); MONO% 6.5 % (1.7-9.3); MPV 10.3 FL (7.4-10.4); NEUT# 9.67 X1000 (1.4-6.5); NEUT% 83.7 % (42.2-75.2); PLT 167 X1000 (130-400); RBC 2.88 XMIL (4.2-5.4); RDW 12.5 % (11.5-14.5); WBC 11.54 X1000 (4.8-10.8)
[2019-03-05 05:36] LABS: CHLORIDE 108 mmol/L (98-107); MAGNESIUM 1.5 mg/dL (1.5-2.7); PHOSPHORUS 3.6 mg/dL (2.7-4.5); POTASSIUM 3.1 mmol/L (3.5-5.1); SODIUM 144 mmol/L (136-145); TCO2 23 mmol/L (25-35)
[2019-03-05 05:37] LABS: AGAP 13; BUN 13 mg/dL (8-22); CALCIUM 7.8 mg/dL (8.8-10.2); COSMO 289; CREATININE 0.6 mg/dL (0.5-0.9); ESTIMATED GFR > 60; GLUCOSE 132 mg/dL (70-104)
[2019-03-05] MEDS ORDERED: POTASSIUM CHLORIDE 20% LIQUID NG ONE (07:20)
[2019-03-05] MEDS ORDERED: POTASSIUM CHLORIDE 60 MEQ in NS 500 ML IV ONE (07:59)
[2019-03-05] MEDS ORDERED: MAG-OX NG SCH (09:00)
[2019-03-05] MEDS ORDERED: PRILOSEC PO ONE (09:08)
[2019-03-05] MEDS: MAG-OX NG SCH ×4 (09:10→20:11)
--- NOTE | 2019-03-05 09:39 | PROGRESS NOTE ---
DATE: 03/05/2019 SUBJECTIVE: The patient has been successfully extubated. I talked with the patient this morning, and she said that she was taking her medication she is supposed to, and she does not know why the Dilantin has been found low at admission. OBJECTIVE: Vital Signs: Temperature 97.2 degrees, heart rate 61, respiratory rate 19, blood pressure 111/50, O2 saturation 100% on Ventimask 50%. General examination: This is a chronically ill-appearing, 58-year-old female, lying in bed in no acute distress. HEENT: Head is normocephalic, atraumatic. The patient has an NG-tube placed. Neck: No JVD noted. No carotid bruits. No lymphadenopathy. No thyromegaly. Cardiovascular exam: S1 and S2 heard. Tachycardic. No murmurs, gallops, or rubs noted. Respiratory exam: Minimal wheezing and rhonchi is noted in both pulmonary bases. Patient not using any accessory muscles or having work of breathing. Abdomen: Soft, nontender to palpation. Bowel sounds present. No organomegaly. Extremities: No clubbing, cyanosis, or edema. Peripheral pulses present in both legs. Neurological exam: Patient is alert and oriented x3. Moves 4 extremities. Cranial nerves 2-12 grossly normal. Speech is coherent. LABORATORY DATA: White cell count 11.54, hemoglobin 8.2, hematocrit 25.4, platelets 167 with potassium 3.1. Normal renal function. ASSESSMENT AND PLAN: 1. Acute hypoxemic respiratory failure. The patient has been successfully extubated yesterday. Now, requiring oxygen by Ventimask. I think she may tolerate nasal cannula. Pulmonary following this patient. We will follow recommendations. 2. Sepsis of unknown source. The patient is on vancomycin and Zosyn. The patient has been having fever, but nothing during the last 48 hours. In any case, we will continue with the same management. 3. Seizure disorder. The patient used to be on Dilantin, but because this is her second visit in which she had seizures and Dilantin has been found out. Since admission, she is on Keppra 1 gram intravenous every 12 hours. We will continue with the same management. I think the patient is more awake and alert, but I would like to start oral medications tomorrow, in this case Keppra by mouth. At this point, we will continue to monitor this patient closely. 4. Hypertension. Blood pressure is much better controlled. We will continue with same management. 5. Disposition: Patient is doing much better. I am planning to keep him one more day in the unit, monitoring closely. We will keep an eye on her oxygen needs. We will start liquid diet and advance as tolerated. cc: Papa Villanueva MD
[2019-03-05] MEDS: TYLENOL PO PRN ×3 (12:44→22:26)
[2019-03-05] MEDS: VANCOMYCIN 1.6 GM in NS 250 ML IV SCH (16:01)
[2019-03-05] MEDS: ZOFRAN IV PRN (17:06)
[2019-03-05] MEDS: LOVENOX SUBQ SCH (17:06)
[2019-03-05] MEDS ORDERED: LASIX IV ONE (18:07)
[2019-03-05] MEDS: LASIX IV SCH (20:12)
[2019-03-06] MEDS: ZOSYN 3.375 GM in NS 50 ML IV SCH ×4 (01:03→20:13)
[2019-03-06] MEDS: DUONEB (A & A) INH SCH ×6 (03:29→23:18)
[2019-03-06] MEDS: KEPPRA 1,000 MG in NS 100 ML IV SCH ×2 (04:13→17:25)
[2019-03-06 04:36] LABS: ALLEN TEST YES; BE 6.7 mmoll (-3.0-3.0); BLOOD TYPE ARTERIAL; HCO3-(ACT) 30.2 mmoll (20.0-26.0); METHB 0.9 % (0.0-1.5); O2(CT) 13.1 mL/dL (15.0-23.0); O2HB 97.3 % (95.0-99.0); PCO2(98.6) 39 mmHg (35-45); PO2(98.6) 175 mmHg (60-100); SAMPLE BLOOD; SAO2 99.3 % (95.0-100.0); THB 9.3 g/dL (11.5-17.4)
[2019-03-06 04:37] LABS: MODALITY CANNULA
[2019-03-06] MEDS: ZOFRAN IV PRN (04:51)
[2019-03-06 05:36] LABS: MAGNESIUM 1.5 mg/dL (1.5-2.7); PHOSPHORUS 3.5 mg/dL (2.7-4.5)
[2019-03-06 06:08] LABS: BUN 10 mg/dL (8-22); CALCIUM 8.4 mg/dL (8.8-10.2); CREATININE 0.6 mg/dL (0.5-0.9); ESTIMATED GFR > 60; GLUCOSE 105 mg/dL (70-104); TCO2 22 mmol/L (25-35)
[2019-03-06] MEDS: PRILOSEC PO SCH (06:13)
[2019-03-06 06:24] LABS: BASO# 0.03 X1000 (0.0-0.2); BASO% 0.2 % (0.0-0.8); EOS# 0.24 X1000 (0.0-0.7); EOS% 1.9 % (0.0-10.0); HEMATOCRIT 26.8 % (37.0-47.0); HEMOGLOBIN 8.7 g/dL (12.0-16.0); IMM GRAN# 0.07 X1000 (0.0-0.04); IMM GRAN% 0.6 % (0.0-0.5); LYMPH# 1.12 X1000 (1.2-3.4); LYMPH% 8.9 % (20.5-51.1); MCH 28.9 PG (27-31); MCHC 32.5 g/dL (33-37); MONO# 1.17 X1000 (0.11-0.59); MONO% 9.3 % (1.7-9.3); MPV 10.6 FL (7.4-10.4); NEUT# 9.97 X1000 (1.4-6.5); NEUT% 79.1 % (42.2-75.2); PLT 239 X1000 (130-400); RBC 3.01 XMIL (4.2-5.4); RDW 12.8 % (11.5-14.5)
[2019-03-06 07:39] LABS: CHLORIDE 105 mmol/L (98-107); POTASSIUM 3.6 mmol/L (3.5-5.1); SODIUM 149 mmol/L (136-145)
[2019-03-06 07:40] LABS: AGAP 22; COSMO 296
--- NOTE | 2019-03-06 09:02 | PROGRESS NOTE ---
DATE: 03/06/2019 SUBJECTIVE: The patient reports breathing much better. According to nursing staff, she eating okay so NG tube had been removed yesterday. Now, talking a little bit more with her, she reports being compliant with taking Dilantin. OBJECTIVE: Vital Signs: Temperature 98.4, heart rate 97, respiratory rate 21, blood pressure 180/105, O2 saturation 100% on 5 L nasal cannula. General Examination: This is a chronically ill- appearing, 58-year-old, female lying in bed, in no acute distress. HEENT: Head is normocephalic, atraumatic. Neck: No JVD noted. No carotid bruits. No lymphadenopathy. No thyromegaly. Cardiovascular Examination: S1 and S2 heard. Tachycardic. No murmurs, gallops, or rubs noted. Respiratory Examination: Minimal wheezing and rhonchi noted in both pulmonary bases. Patient is not using any accessory muscles or having work of breathing. Abdomen: Soft, nontender to palpation. Bowel sounds present. No organomegaly. Extremities: No clubbing, cyanosis, or edema. Peripheral pulses present in both legs. Neurological Examination: The patient is alert and oriented x3. Moves 4 extremities. Cranial nerves 2-12 grossly normal. Laboratory Data: White cell count 12.60, hemoglobin 8.7, hematocrit 26.8, platelets 239,000. ABG shows pH 7.50, with pCO2 39, PO2 175. That was on 5 L nasal cannula. BMP shows sodium 149, glucose 105. ASSESSMENT/PLAN: 1. Acute hypoxemic respiratory failure. Clinically, this patient is getting better. Currently, she is on 5 L of oxygen by nasal cannula which is apparently what she uses at home. At this point, we are going to continue with the same management. Pulmonary is following this patient as well. 2. Sepsis of an unknown source. When this patient was admitted, she was tachypneic. Started developing fever and blood pressure started to go down. That is why she was started on broad- spectrum antibiotics; in this case, vancomycin and Zosyn. Today is day number 4 of treatment for both medications. Considering this patient is getting better, we will continue with the same management. Blood cultures so far are negative. 3. Seizure disorder. Basically, the reason why this patient was here was because of another episode of seizures and she was supposed to be on Dilantin. The levels of that drug were found to be very low. She has been started on Keppra 1 g intravenous every 12 hours. The patient, now that she is alert and oriented, is strongly encouraged to be compliant with her medication. Of course, no more seizures since admission. We will continue to monitor this patient closely. 4. Hypertension. Blood pressure is still high. Today, it was 180. We are going to go restart blood pressure medications; in this case, carvedilol and lisinopril. 5. Disposition. I think this patient is doing much better so we are going to transfer her out of the intensive care unit today. Physical therapy and occupational therapy have been consulted. We will follow recommendations. cc: Papa Villanueva MD MTDD
[2019-03-06] MEDS: LASIX IV SCH ×2 (09:18→20:14)
[2019-03-06] MEDS: PRINIVIL PO SCH (09:18)
[2019-03-06] MEDS: COREG PO SCH ×2 (09:18→20:14)
[2019-03-06] MEDS ORDERED: IMODIUM PO PRN ×2 (09:27→12:39)
[2019-03-06] MEDS: MAG-OX PO SCH ×4 (09:35→20:14)
--- NOTE | 2019-03-06 11:05 | Diag Imaging Result Doc PS360 ---
EXAM: CHEST-2 VIEWS HISTORY: shortness of breath TECHNIQUE: Chest two views COMPARISON: 03/02/2019 FINDINGS: The endotracheal tube has been removed. No change in the right jugular line or the left subclavian portacatheter. The heart is not enlarged. The lungs are well expanded. No consolidation. Likely atelectasis in the left costophrenic angle. There may be tiny pleural effusions. IMPRESSION: Left basilar atelectasis, but no pneumonia. Electronically signed by Mike Crowder 03/06/2019 11:03 AM
[2019-03-06] MEDS: VANCOMYCIN 1.6 GM in NS 250 ML IV SCH (16:01)
[2019-03-06] MEDS: LOVENOX SUBQ SCH (17:30)
[2019-03-06] MEDS ORDERED: SODIUM CHLORIDE 0.9% INJ PRN (18:40)
[2019-03-06] MEDS: PHENERGAN IV PRN (19:31)
[2019-03-07] MEDS: ZOSYN 3.375 GM in NS 50 ML IV SCH ×4 (01:20→20:42)
[2019-03-07] MEDS: MAG-OX PO SCH ×2 (03:18→08:46)
[2019-03-07] MEDS: DUONEB (A & A) INH SCH ×6 (03:29→23:34)
[2019-03-07] MEDS: KEPPRA 1,000 MG in NS 100 ML IV SCH (04:17)
[2019-03-07] MEDS: PHENERGAN IV PRN ×3 (04:24→17:13)
[2019-03-07 04:57] LABS: ALLEN TEST YES; BE 12.2 mmoll (-3.0-3.0); BLOOD TYPE ARTERIAL; HCO3-(ACT) 34.4 mmoll (20.0-26.0); METHB 1.1 % (0.0-1.5); O2(CT) 15.5 mL/dL (15.0-23.0); O2HB 93.8 % (95.0-99.0); PCO2(98.6) 46 mmHg (35-45); PO2(98.6) 78 mmHg (60-100); SAMPLE BLOOD; SAO2 96.3 % (95.0-100.0); THB 11.7 g/dL (11.5-17.4); pH(98.6) 7.51 (7.35-7.45)
[2019-03-07 04:58] LABS: MODALITY CANNULA
[2019-03-07 05:39] LABS: BASO# 0.03 X1000 (0.0-0.2); BASO% 0.3 % (0.0-0.8); EOS# 0.37 X1000 (0.0-0.7); EOS% 3.4 % (0.0-10.0); HEMATOCRIT 31.2 % (37.0-47.0); HEMOGLOBIN 9.9 g/dL (12.0-16.0); IMM GRAN# 0.09 X1000 (0.0-0.04); IMM GRAN% 0.8 % (0.0-0.5); LYMPH# 1.34 X1000 (1.2-3.4); LYMPH% 12.4 % (20.5-51.1); MCH 28.5 PG (27-31); MCHC 31.7 g/dL (33-37); MCV 89.9 FL (81-99); MONO# 1.39 X1000 (0.11-0.59); MONO% 12.9 % (1.7-9.3); MPV 10.2 FL (7.4-10.4); NEUT# 7.57 X1000 (1.4-6.5); NEUT% 70.2 % (42.2-75.2); PLT 235 X1000 (130-400); RBC 3.47 XMIL (4.2-5.4); RDW 12.6 % (11.5-14.5); WBC 10.79 X1000 (4.8-10.8)
[2019-03-07 06:02] LABS: MAGNESIUM 1.4 mg/dL (1.5-2.7); PHOSPHORUS 2.8 mg/dL (2.7-4.5)
[2019-03-07] MEDS: PRILOSEC PO SCH (06:08)
[2019-03-07 06:19] LABS: AGAP 15; BUN 13 mg/dL (8-22); CHLORIDE 98 mmol/L (98-107); COSMO 288; CREATININE 0.8 mg/dL (0.5-0.9); ESTIMATED GFR > 60; GLUCOSE 123 mg/dL (70-104); POTASSIUM 2.6 mmol/L (3.5-5.1); SODIUM 144 mmol/L (136-145); TCO2 31 mmol/L (25-35)
[2019-03-07] MEDS ORDERED: POTASSIUM CHLORIDE 20% LIQUID PO ONE ×2 (06:30→10:30)
[2019-03-07] MEDS: POTASSIUM CHLORIDE 20 MEQ/SWI 20 MEQ/100 ML IVPB IV SCH ×2 (07:46→10:18)
[2019-03-07] MEDS: MAGNESIUM SULFATE 2 GM/S.W.I. 2 GM/50 ML IVPB IV SCH ×2 (07:46→10:18)
[2019-03-07] MEDS: COREG PO SCH ×2 (08:46→20:43)
[2019-03-07] MEDS: PRINIVIL PO SCH (08:46)
[2019-03-07] MEDS: LASIX IV SCH (08:47)
--- NOTE | 2019-03-07 10:13 | PROGRESS NOTE ---
DATE: 03/07/2019 INTERVAL HISTORY: No acute overnight events. She did have temperature of 99.7 degrees, but otherwise did not have acute fever episode. SUBJECTIVE: She is sitting in the chair by the time I evaluated her today morning. She is complaining of some burning associated with urine catheter, wants urine catheter to be taken out. We discussed about her low electrolytes. We also discussed with her about unknown source of suspected sepsis. She tells me that she has had seizure which started about 1 year ago, but she is not able to provide a lot of history related to that. She states she has been taking phenytoin quite regularly. However, the levels does not reflect that. I will consult Neurology. She has had breast cancer for which she has received chemo radiation, which was several years ago. The patient denies any chest pain or shortness of breath at rest at the moment. VITALS: Temperature of 99.7 degrees. That was the maximum temperature. Pulse of 90 per minute, blood pressure she is maintaining MAP more than more than 65 mmHg. Respiratory sat saturation 98% on 3 L nasal cannula. PHYSICAL EXAMINATION: General: Does not appear in any acute distress. HEENT: Oral cavity is moist. Lungs: Air entry bilaterally equal. No wheeze, rhonchi, or crackles. Cardiovascular: S1, S2 normal. No murmur, rub, or gallop. Abdomen: Soft, nontender. Extremities: She does not have any lower extremity edema. She has a right-sided central venous line catheter. : She has urine catheter. Input and output suggest negative 2 L yesterday. LABS: Suggestive of no leukocytosis. Normocytic anemia. Normal platelet count. Her ABG suggest adequate PO2 on 4 L nasal cannula without any acidosis. She does have potassium of 2.6 and magnesium of 1.4 suggestive of hypokalemia and hypomagnesemia which is being repleted. On admission she did have elevated troponin to 0.286, however it was not trended. Currently, she is not complaining of any chest pain. MICROBIOLOGY: Blood culture, urine culture no growth to date. IMAGING: No new imaging today. ASSESSMENT AND PLAN: 1. Acute hypoxic respiratory failure of unclear etiology leading to intubation for increased work of breathing. She is status post extubation on March 04. Continue oxygenation to maintain saturation more than 94% for her chronic hypoxic respiratory failure related to chronic obstructive pulmonary disease. Pulmonology on board. 2. Sepsis of unclear etiology. Blood culture and urine culture did not have any growth. She has been afebrile. I will stop vancomycin and Zosyn tomorrow since we do not have any identifiable source of infection. 3. Seizure disorder on presentation. The patient the patient was found to have subtherapeutic level of phenytoin and has been on levetiracetam since hospital admission. I did not see an EEG. I will continue levetiracetam and will consult Neurology as she was being seen by a neurologist outpatient if she would need to go back on phenytoin at the time of discharge. 4. Essential hypertension. Continue carvedilol and lisinopril. Currently, blood pressure is in acceptable range. I will get EKG as her troponins were elevated on admission. Accordingly, I will get ECHO. DISPOSITION: 1. Patient has transferred to medical floor. Order will appreciate physical therapy recommendation. 2. Based on that tomorrow I will make a decision on whether she would be a candidate for rehab versus home physical therapy. 3. Plan of care discussed with the patient. All of her questions have been answered. 4. Considering her hypoxia is going down I will also consider changing her Lasix to p.o. and potentially stop it. cc: Tashi Izquierdo MD MTDD
--- NOTE | 2019-03-07 10:46 | EKG Report ---
Test Performed on : 03/07/2019 09:42:01 AM Test Reason : Baseline EKG for SOB Blood Pressure : / mmHG Vent. Rate : 103 BPM Atrial Rate : 103 BPM P-R Int : 124 ms QRS Dur : 090 ms QT Int : 390 ms P-R-T Axes : 054 -10 231 degrees QTc Int : 510 ms Sinus tachycardia. Possible Left atrial enlargement Marked T wave abnormality, consider anterolateral ischemia Abnormal ECG When compared with ECG of 29-JAN-2019 18:13, Criteria for Septal infarct are no longer present T wave inversion now evident in Inferior leads T wave inversion now evident in Anterolateral leads Confirmed by Matteo LUO, Jose M Pham ([id number]) on 03/07/2019 6:39:36 PM
[2019-03-07] MEDS: LAMICTAL XR PO SCH (14:43)
--- NOTE | 2019-03-07 15:10 | CONSULTATION ---
DATE OF CONSULTATION: 03/07/2019 HISTORY OF PRESENT ILLNESS: Ms. Fuchs is 58 years old and she has history of episodes with question of seizure. She has had some episodes that seem to be very typical seizure associated with benzodiazepine withdrawal. There may also be history of ethanol withdrawal seizure. She has had some other episodes which are less typical. I have seen her during hospitalization a few times in recent months and we saw her in the office a few weeks ago. She has been taking phenytoin 200 mg b.i.d. On questioning at the bedside today, she told me she is certain she takes the medicine and takes it correctly but she cannot tell me what mg size capsules she takes and she cannot tell me whether she takes this 2 or 3 times a day. She seemed unaware that we had prescribed lamotrigine recently. She presented here with phenytoin level 2.9. She did not mention lamotrigine on her home medication list. Other medicines include gabapentin 800 mg t.i.d., buprenorphine 8 mg sublingual t.i.d., several others. Levetiracetam was started here this admission, currently 750 mg p.o. b.i.d. and she has tolerated that. Workup includes noncontrast CT of the head done 03/01/2019 and again 03/02/2019 and these were both unremarkable. Urine drug screen was negative on presentation. Initial chemistry showed magnesium 1.1, calcium 10.5, BUN 33, glucose 180s. Chemistry is unremarkable now. She had some fever and sepsis with uncertain etiology. She was agitated and required intubation and sedation. She was extubated a few days ago. PHYSICAL EXAMINATION: On exam now, she is awake, alert, attentive, appropriate, cheerful. She is brighter than when I last saw her, including brighter than when I saw her in the office a few weeks ago. She recognized me and called me by name. She is oriented. Speech is not dysarthric. Language function is intact. Head and neck are unremarkable. Strength is normal in the limbs. Extraocular movements are full. IMPRESSION AND PLAN: Longstanding history of episodes consistent with seizure, sometimes associated with benzodiazepine and/or ethanol withdrawal, sometimes less clear etiology. I think we need to recommend that she continue taking medicine for seizure control. We had planned to continue phenytoin short-term and then to discontinue that later due to potential bone health concerns. We had discussed several potential alternate seizure medication options. We had considered Valentino earlier but decided not to use that because of potential personality effect and also because of the relatively short half-life and her tendency to miss medication doses. We had settled on extended release lamotrigine, hoping that we could titrate the dose and that she would tolerate adequate dose, possibly being managed with a single tablet once daily. We reviewed that discussion today and I will order that she resume lamotrigine. She had tolerated lamotrigine 50 mg daily prior to admission. We can titrate lamotrigine more rapidly in patients taking phenytoin and I will order lamotrigine 100 mg daily here. She has follow-up with me in the office. We discussed the [place] Law as it pertains to driving, and she told me she does not drive. I encouraged her not to become involved in any situation in which a seizure might result in serious injury to her or to someone else. Thanks for asking Neurology to see Ms. Fuchs again. cc: MD DMITRY Short III
[2019-03-07] MEDS: LOVENOX SUBQ SCH (16:58)
[2019-03-07] MEDS: VANCOMYCIN 1.6 GM in NS 250 ML IV SCH (16:58)
[2019-03-07] MEDS: KEPPRA PO SCH ×2 (17:06→20:42)
[2019-03-08] MEDS: PHENERGAN IV PRN (01:04)
[2019-03-08] MEDS: ZOSYN 3.375 GM in NS 50 ML IV SCH ×4 (02:53→21:52)
[2019-03-08] MEDS: DUONEB (A & A) INH SCH ×5 (03:23→22:47)
[2019-03-08] MEDS: TYLENOL PO PRN ×2 (03:32→12:54)
[2019-03-08] MEDS: PRILOSEC PO SCH (06:23)
[2019-03-08 06:48] LABS: CALCIUM 8.9 mg/dL (8.8-10.2); CREATININE 1.2 mg/dL (0.5-0.9); MAGNESIUM 2.3 mg/dL (1.5-2.7); POTASSIUM 2.9 mmol/L (3.5-5.1)
[2019-03-08] MEDS ORDERED: POTASSIUM CHLORIDE 20% LIQUID PO ONE ×2 (07:06→11:00)
[2019-03-08] MEDS: NEURONTIN PO SCH ×3 (08:29→19:16)
[2019-03-08] MEDS: COREG PO SCH ×2 (08:29→21:51)
[2019-03-08] MEDS: KLOR-CON PO SCH ×2 (08:29→12:54)
[2019-03-08] MEDS: PRINIVIL PO SCH (08:29)
[2019-03-08] MEDS: CELEXA PO SCH (08:29)
[2019-03-08] MEDS: SUBUTEX SL SCH ×2 (08:30→21:51)
[2019-03-08] MEDS: KEPPRA PO SCH ×2 (08:30→21:50)
[2019-03-08] MEDS: POTASSIUM CHLORIDE 20 MEQ/SWI 20 MEQ/100 ML IVPB IV SCH ×2 (08:33→10:41)
[2019-03-08] MEDS: LAMICTAL XR PO SCH (08:35)
[2019-03-08] MEDS ORDERED: LASIX PO SCH (09:00)
--- NOTE | 2019-03-08 10:53 | PROGRESS NOTE ---
DATE: 03/08/2019 INTERVAL HISTORY: Neurology had seen the patient and recommended the patient to be started on lamotrigine, which she has been ordered. Her vitals were unremarkable. Her potassium and magnesium were low, which is being repleted for hypokalemia hypomagnesemia. Her echocardiogram is pending. She wants me to start her Subutex and Neurontin. SUBJECTIVE: She is denying any complaints. She is denying any chest pain, shortness of breath, nausea, vomiting, or abdominal pain. She states she was able to come out of bed and use bedside commode. She is feeling a little weak, but she thinks she can go home. She denies any prior history of coronary artery disease, stent, coronary artery bypass graft, or congestive heart failure. VITAL SIGNS: Currently vitals suggest temperature of 98.4 degrees, pulse of 81, respiratory rate 16, blood pressure 152/64, saturating 100% on 4 L nasal cannula. We can wean down oxygen as tolerated. Input and output suggests negative 4 mL yesterday. PHYSICAL EXAMINATION: General: Does not appear in any acute distress. HEENT: Oral cavity is moist. Lungs: Air entry bilaterally equal. No wheeze, rhonchi, or crackles. Cardiovascular: S1, S2 normal. No murmur, rub, or gallop. Abdomen: Soft, nontender. She does not have any lower extremity edema. She has a right-sided central venous catheter. : Her urine catheter has been removed. LABS: Suggestive of hypokalemia. Her magnesium has been repleted. Elevated creatinine likely in the setting of Lasix use, which I have hold. IMAGING: No new imaging today. Echocardiogram is pending. ASSESSMENT/PLAN: 1. Acute hypoxic respiratory failure requiring intubation for increased work of breathing. She is status post extubation on March 04. Continue oxygenation to maintain saturation more than 94% for her chronic hypoxic respiratory failure and home need of 4 L nasal cannula oxygen in the setting of her chronic obstructive pulmonary disease. Pulmonology on board. I will discontinue Lasix. 2. Sepsis of unclear etiology. Blood culture, urine culture did not have any growth. She has been afebrile. I will stop vancomycin and Zosyn. Today is day 7 of antibiotics. 3. Seizure disorder on presentation. She has had seizures in the past because of alcohol withdrawal and sometimes benzodiazepine withdrawal. Neurology has been consulted and the patient has been started on lamotrigine. Her levetiracetam would be tapered of tonight. 4. Essential hypertension. Continue carvedilol, lisinopril. Her EKG had new T-wave inversion involving inferior and lateral leads. I will follow up with echocardiogram and will advise her to follow up with telemarketing sales representative as an outpatient. DISPOSITION: The patient has been transferred to medical floor. Order physical therapy is on board. If the patient continues to do better, I am anticipating discharge in 24 hours with home physical therapy. Plan of care discussed with the patient. All of her questions have been answered. cc: Tashi Izquierdo MD
--- NOTE | 2019-03-08 13:57 | PROGRESS NOTE ---
DATE: 03/08/2019 Ms. Fuchs is sitting up this morning, awake, alert, attentive, bright, and cheerful. She does not have any complaints for me. There has not been clinical seizure recognized in the last few days. I reviewed the recommended seizure medicine management with her again today. We will plan to continue phenytoin short-term, stop levetiracetam now, and titrate lamotrigine. I will follow her as an outpatient. Thanks for asking Neurology to see Ms. Fuchs. cc: Bernard Patel III, MD
--- NOTE | 2019-03-08 14:51 | ECHO REPORT ---
ORDER DATE: 03/07/2019 INDICATION: Evaluate inferolateral ischemia. FINDINGS: 1. The right atrium appears normal in size. 2. Mild tricuspid regurgitation. Insufficient data to accurately estimate RV systolic pressure. 3. Normal RV size and systolic function. 4. Mild pulmonic insufficiency. 5. Normal left atrial size with a dimension of 3.4 cm. 6. No mitral valve prolapse. I do not see any significant mitral regurgitation. 7. Normal LV size, end-diastolic dimension of 4.2. Moderate left ventricular hypertrophy with a posterior and interventricular septal wall thickness 1.2 and 1.5 cm respectively. Normal LV systolic function. The estimated EF is 65% with normal wall motion. 8. The aortic valve is somewhat calcified. There does not appear to be any significant degree of stenosis. There is mild insufficiency. 9. The aorta appears normal in visualized segments. 10. No pericardial effusion is identified. cc: MD Tashi Banda MD
--- NOTE | 2019-03-08 18:20 | PULMONOLOGY PROGRESS NOTE ---
DATE: 03/08/2019 SUBJECTIVE: The patient is awake, alert, and conversant. She is without specific complaints. She is tolerating p.o. intake. She reports she has been out of bed. OBJECTIVE: Vital Signs: BP 120/69, heart rate 82, oxygen saturation 95% on 4 L per nasal cannula. She has been afebrile for the last 24 hours. HEENT: Pupils are equal and reactive. Oropharynx appears clear. Neck: Supple. Chest: Crackles at the left base. Cardiac Exam: S1, S2. Abdomen: Soft, without hepatosplenomegaly. Extremities: Trace pretibial edema. LABORATORIES: Sodium 145, potassium 2.9, chloride 101, bicarbonate 32, BUN 15, creatinine 1.2. No new chest x-ray data. No new microbiology data. IMPRESSION: A 58-year-old with: 1. Chronic obstructive pulmonary disease. 2. Acute hypoxemic respiratory failure. 3. Resolving sepsis. 4. Status epilepticus. 5. The patient continues to improve and is stable off mechanical ventilation. RECOMMENDATIONS: 1. Continue bronchial hygiene. 2. Continue current antibiotic regimen. 3. Wean oxygen as tolerated. 4. Followup chest x-ray tomorrow morning. 5. I agree with transfer to the floor. cc: Leonard Matos MD
[2019-03-08] MEDS: LOVENOX SUBQ SCH (19:17)
[2019-03-09] MEDS: DUONEB (A & A) INH SCH ×5 (03:27→18:17)
[2019-03-09] MEDS: TYLENOL PO PRN (04:14)
[2019-03-09] MEDS: PRILOSEC PO SCH (06:39)
--- NOTE | 2019-03-09 07:59 | Diag Imaging Result Doc PS360 ---
CHEST-PORTABLE - 03/09/2019 INDICATION: abnormal exam COMPARISON: 03/06/2019 FINDINGS: Stable bilateral central lines. These are in good position. Stable hazy infiltrate or atelectasis at the lingula and left lower lobe. No new infiltrates. No pneumothorax or significant pleural effusion. Heart size and pulmonary vascularity are normal. IMPRESSION: No change from prior. Electronically signed by aPrag Ulrich 03/09/2019 7:57 AM
[2019-03-09] MEDS: PRINIVIL PO SCH (09:27)
[2019-03-09] MEDS: CELEXA PO SCH (09:27)
[2019-03-09] MEDS: SUBUTEX SL SCH (09:27)
[2019-03-09] MEDS: COREG PO SCH (09:27)
[2019-03-09] MEDS: LAMICTAL XR PO SCH (09:27)
[2019-03-09] MEDS: NEURONTIN PO SCH ×2 (09:27→13:54)
[2019-03-09 16:04] VITALS: BP 96/55
--- NOTE | 2019-03-09 21:26 | PULMONOLOGY PROGRESS NOTE ---
DATE: 03/09/2019 SUBJECTIVE: The patient is awake, alert, and conversant. She ate all of her lunch today. OBJECTIVE: Vital Signs: The patient has been afebrile for the last 24 hours. BP 99/67, heart rate 71, respiratory rate 18, oxygen saturation 97% on 4 L nasal cannula. HEENT:: Pupils are equal and reactive. Oropharynx appears clear. Neck: Supple. Chest: Reveals crackles at the left base. Cardiac Exam: S1, S2. Abdomen: Soft and mildly obese. Extremities: Without edema. LABORATORIES: Chest x-ray reveals mild infiltrate at the left base. IMPRESSION: A 58-year-old with: 1. Chronic obstructive pulmonary disease. 2. Acute hypoxemic respiratory failure. 3. Sepsis upon presentation, which has resolved. 4. Status epilepticus. PLAN: 1. Continue bronchial hygiene. 2. Ambulate as tolerated. 3. Continue current antibiotic regimen. 4. Wean oxygen as tolerated. cc: Leonard Matos MD
--- NOTE | 2019-03-10 00:17 | DISCHARGE SUMMARY ---
ADMISSION DATE: 03/01/2019 DISCHARGE DATE: 03/09/2019 DISCHARGE DISPOSITION: Home with home physical therapy. DISCHARGE CONDITION: Hemodynamically stable. She uses about 3 to 4 L of oxygen for her chronic hypoxic respiratory failure because of COPD. She is hemodynamically stable, alert and oriented. She is able to go to the bathroom and come back. DISCHARGE DIAGNOSES: 1. Acute hypoxic respiratory failure because of increased work of breathing and suspected left lower lobe pneumonia, requiring mechanical ventilation and intubation. 2. Sepsis of unclear etiology, likely because of left lower lobe pneumonia; however, no positive culture data. 3. Seizure and acute encephalopathy on presentation, with prior history of seizure disorder and subtherapeutic phenytoin level. 4. Essential hypertension. 5. Inferolateral T-wave inversions on electrocardiogram, with unremarkable echocardiogram and no chest pain. 6. Hypomagnesemia. 7. Other Diagnosis: History of chronic obstructive pulmonary disease and chronic hypoxic respiratory failure, on 3 to 4 L nasal cannula home oxygen. 8. Ongoing tobacco abuse. OTHER DIAGNOSES: 9. History of seizure disorder, on phenytoin previously, but subtherapeutic phenytoin level on admission. 10. History of anxiety. 11. Breast cancer, status post bilateral mastectomy. 12. History of noninsulin-dependent diabetes mellitus. 13. Chronic pain disorder, on buprenorphine sublingual. CONSULTATIONS: During hospitalization, Pulmonology, Dr. Denton; General Surgery, Dr. Townsend, for central line placement; Neurology, Dr. Patel, for seizure. DISCHARGE MEDICATIONS: 1. Albuterol 2 puffs inhaled q.4-6 hours as needed for shortness of breath. 2. Atorvastatin 40 mg daily. 3. Citalopram 20 mg daily. 4. Carvedilol 3.125 mg b.i.d. 5. Gabapentin 800 mg t.i.d. 6. Metformin 500 mg daily. 7. Lisinopril 20 mg daily. 8. Promethazine 25 mg every 4-6 hours as needed for nausea and vomiting. 9. Buprenorphine sublingual 8 mg sublingual t.i.d. 10. Albuterol/ipratropium nebulization 3 mL inhaled t.i.d. as needed for shortness of breath. 11. Lamotrigine extended-release/Lamictal XR 100 mg daily; 60 tablets have been prescribed. PHYSICAL EXAMINATION: Vital signs at the time of discharge: Temperature of 97.6 degrees, pulse 76, respiratory rate 17, blood pressure 96/55, saturating 95% on room air. On physical examination the patient does not appear in any acute distress. Oral cavity is moist. No pallor, cyanosis, clubbing or icterus. Air entry bilaterally equal. No wheeze or rhonchi. Mild left infrascapular crackles. S1, S2 normal. No murmur, rub or gallop. Abdomen is soft, nontender. She does not have any lower extremity edema. She has a right-sided central venous catheter, which will be removed at the time of discharge. LABORATORY DATA: Significant labs at the time of discharge: Her WBC is 10.7, hemoglobin 9.9, platelets 235,000. Her BMP has a potassium of 2.9, which was replenished with 120 mEq of potassium. Her BUN is 15, creatinine of 1.2, magnesium is 2.3. Significant microbiology during hospital admission: One of the 2 blood cultures was growing coagulase-negative staphylococcus, which was thought to be a contaminant. Urine culture did not have any growth. Second blood culture did not have any growth. DIAGNOSTIC DATA: Significant imaging during hospital admission: 1. Head CT on arrival for seizure did not have any acute intracranial disease. 2. Chest x-ray on 03/01 did not have any acute disease. There was the presence of a Port-A-Cath on the left. 3. Chest/abdomen CT, performed for sepsis of unknown source, had moderate emphysema. There was scarring in the right apex, without any consolidation or bronchiectasis. Abdomen was also unremarkable. 4. Head CT on 03/02, for worsening encephalopathy, did not have any hemorrhage. There was no change. 5. Echocardiogram on 03/07/2019 had ejection fraction of 65% with normal wall motion. Mild calcification of the aortic valve without any aortic stenosis, without any pericardial effusion. 6. Chest x-ray on 03/09 had a stability of infiltrate or atelectasis in the lingula and left lower lobe, without any new infiltrate or pneumothorax. HOSPITAL COURSE: Ms. Fuchs is a 58-year-old lady with past medical history of seizure disorder, came in as the patient was found at home by a friend on the floor, showing some signs of seizure and confusion. EMS was called, and EMS had brought her to the emergency room. There was also some concern that the patient was not taking her phenytoin as she was supposed to. In the ER she was found to have leukocytosis of 12,000 and subtherapeutic phenytoin level. She was admitted for further management of her postictal status and seizure, and was started on intravenous Keppra. During hospitalization, the patient's respiratory status had started becoming worse and she had started becoming tachypneic, agitated and restless, with persistent confusion. There was a concern that she might have aspirated, and she had worsening leukocytosis. Ultimately she had to be intubated and was started on broad-spectrum antibiotics. The patient was intubated between 03/02 and 03/04, and was eventually extubated as her respiratory status was improving. She was continued on intravenous antibiotics for suspected sepsis of unclear source. There was a concern of left lower lobe pneumonia, however, it could be just atelectasis. She was given antibiotics for about 7 days' duration, and blood culture data and urine culture data was negative, so antibiotics were stopped. At the time of discharge she was not having any chest pain. Her shortness of breath is baseline. For seizures she was started on IV Keppra initially and Neurology was consulted. Later on her Keppra was tapered off, and she was discharged on lamotrigine. She was continued on most of her other home medications. EKG performed to evaluate her tachycardia has inferolateral ST and T-wave changes, with T-wave inversions. Echocardiogram was performed; however, it had no regional wall motion abnormality and ejection fraction was normal. At the time of discharge, the patient was provided detailed discharge instructions about following up with a lung doctor and following up with a neurologist. The patient's functional status was appropriate, and Apprentice Architect team was consulted for home physical therapy. More than 30 minutes was spent in discharging the patient. All of her questions were satisfactorily answered. cc: Tashi Izquierdo MD MTDD
== END 2019-03-09 18:53 | disposition home health service (06) | DRG 871 ==
LOC: ED 13:08 → SUATTDRO 17:49 → EDIPHOLD 17:49 → ICU 03-02 01:09 → 3N 03-08 14:49
PROVIDERS: ATTEND Internal Medicine
CPT/HCPCS: 51701; 70450; 71010; 71020; 71045; 71046; 71260; 74000; 74018; 74160; 80048; 80053; 80101; 80185; 80196; 80202; 80301; 80307; 80320; 80324; 80329; 80345; 80346; 80353; 80358; 80361; 80365; 81001; 82003; 82055; 82550; 82553; 82805; 82948; 83605; 83735; 83992; 84100; 84132; 84484; 85025; 85610; 85730; 87040; 87088; 93005; 93010; 93306; 94002; 94003; 94150; 94640; 94660; 94761; 96361; 96365; 96367; 96368; 96372; 97110; 97162; 97165; 97530; 97535; 99285; A9270; C9113; G0431; G0434; G0479; G0480; G6038; G6039; G6040; J0131; J0330; J0360; J0696; J1630; J1650; J1940; J1953; J2060; J2250; J2405; J2543; J2550; J3370; J3475; J3480; J7030; J7040; J7050; P9612; Q9967; S0164; XXXXX

== ENCOUNTER 2019-03-12 15:20 | Observation (INO) ==
--- NOTE | 2019-03-12 17:07 | Diag Imaging Result Doc PS360 ---
EXAM: CT HEAD/C-SPINE W/O CONTRAST INDICATION: seizure/fall/injury TECHNIQUE: This exam was performed using automated exposure control, adjustment of mA or kV according to patient size, and/or use of iterative reconstruction technique. COMPARISON: CT head dated 03/02/[address] C-spine dated 12/26/2018 FINDINGS: Head: There is severe motion artifact involving a few of the lower slices, which limits sensitivity at these levels. There is no definite acute infarct given the limited sensitivity of CT versus MRI. There is no discrete intracranial mass, mass effect, or intracranial hemorrhage. The surrounding soft tissues are essentially unremarkable. The calvaria is intact. C-spine: There has been prior anterior cervical fusion at C5-6 and C6-7. There are stable facet degenerative changes and degenerative disc disease at multiple levels. Otherwise, there is no discrete fracture, subluxation, or intrinsic osseous lesion. There is stable pulmonary emphysema and stable fibrosis at the right lung apex. Surrounding soft tissues are essentially unremarkable, otherwise. IMPRESSION: 1.No evidence of acute intracranial pathology. 2.Stable multilevel degenerative and postsurgical changes but no evidence of fracture or other definite acute C-spine injury. Electronically signed by Omar Rodriguez 03/12/2019 5:04 PM
[2019-03-12 18:08] LABS: URINE SOURCE CLEAN CATCH
[2019-03-12 18:14] LABS: BILIRUBIN URINE NEGATIVE (NEGATIVE); BLOOD URINE NEGATIVE (NEGATIVE); CLARITY CLEAR (CLEAR); COLOR YELLOW; GLUCOSE URINE NEGATIVE (NEGATIVE); KETONE URINE NEGATIVE (NEGATIVE); LEUKOCYTES URINE TRACE (NEGATIVE); NITRITE URINE NEGATIVE (NEGATIVE); PROTEIN URINE TRACE mg/dL (NEGATIVE); UROBILINOGEN URINE NORMAL
[2019-03-12 18:24] LABS: BASO# 0.08 X1000 (0.0-0.2); BASO% 1.1 % (0.0-0.8); EOS# 0.26 X1000 (0.0-0.7); EOS% 3.7 % (0.0-10.0); HEMATOCRIT 27.4 % (37.0-47.0); HEMOGLOBIN 8.3 g/dL (12.0-16.0); IMM GRAN# 0.03 X1000 (0.0-0.04); IMM GRAN% 0.4 % (0.0-0.5); LYMPH# 1.72 X1000 (1.2-3.4); LYMPH% 24.2 % (20.5-51.1); MCH 28.3 PG (27-31); MCHC 30.3 g/dL (33-37); MCV 93.5 FL (81-99); MONO# 0.68 X1000 (0.11-0.59); MONO% 9.6 % (1.7-9.3); MPV 9.8 FL (7.4-10.4); NEUT# 4.34 X1000 (1.4-6.5); PLT 203 X1000 (130-400); RBC 2.93 XMIL (4.2-5.4); RDW 12.2 % (11.5-14.5); WBC 7.11 X1000 (4.8-10.8)
[2019-03-12 18:43] LABS: AGAP 10; ALBUMIN 3.9 g/dL (3.5-5.0); ALKALINE PHOSPHATASE 108 U/L (32-104); BUN 21 mg/dL (8-22); CHLORIDE 100 mmol/L (98-107); COSMO 280; CREATININE 1.6 mg/dL (0.5-0.9); ESTIMATED GFR 33; GLUCOSE 94 mg/dL (70-104); GOT 10 U/L (10-30); GPT 17 U/L (10-36); POTASSIUM 5.5 mmol/L (3.5-5.1); SODIUM 139 mmol/L (136-145); TCO2 28 mmol/L (25-35); TOTAL PROTEIN 6.5 g/dL (6.3-8.3); VALPROIC ACID < 2.80 ug/mL (50-100)
--- NOTE | 2019-03-12 19:27 | PROVIDER DOCUMENTATION ---
This chart was entered by Tami Dotson Scribe, acting as scribe for Yousif Parker MD. HPI-General Adult - General Source: patient, EMS Unable to obtain history due to:: altered - History of Present Illness -Gen Adult Nature of Presenting Problems: 58 yowf presents to the ed possibly after a seizure. pt is poor historian and sts her mother and home health sent her to the ed due to a fall and she was released to early from last stay. when dr parker ask the pt did she have pain she sts "no im not hurting". dr parker then approximately 1 minute later ask the pt are you sure no pain she st "well I got back pain and a GRIER". pt sts "I just have seizures sometimes and I cant drive" Location of Pain/Injury: reports: head (GRIER), back Pain Radiation: reports: no radiation Quality of Pain: reports: aching Severity: reports: mild Onset/Duration: reports: unsure Timing: reports: intermittent Context/Activities at Onset: reports: other (possible seizure) Modifying Factors: improves with: nothing Associated Symptoms: reports: back/neck pain, headaches, seizure. denies: chest pain, cough, diarrhea, dizziness, fever/chills, sinus congestion/drainage, nausea, shortness of breath, vomiting Similar Symptoms Previously?: Yes (hx of seizure) Recently seen or treated by another doctor?: No <Yousif Parker - Last Filed: 03/12/19 19:27> - History of Present Illness -Gen Adult Nature of Presenting Problems: Patient is a 58 year old white female with history of seizure disorder who presents for seizure episode and dizziness. Patient reports she becomes dizzy when she stands since today. Denies chest pain or sob. <Chalino Richards - Last Filed: 03/12/19 20:38> - General Chief Complaint: Seizure Stated Complaint: AMS Time Seen by Provider: 03/12/19 15:57 Allergies/Adverse Reactions: Patient Allergies Allergy/AdvReac Type Severity Reaction Status Date / Time hydrocodone bitartrate * AdvReac ITCHING Verified 11/13/18 10:58 [From Lortab] Home Medications: Home Medication List Medication Instructions Recorded Confirmed Last Taken Type Buprenorphine S.l. [Subutex] 8 mg SL TID 03/19/18 03/07/1902/28/19 History Citalopram Hydrobromide [Celexa] 20 mg PO DAILY 03/19/18 03/07/19 02/28/19 History LISINOpril [Prinivil] 20 mg PO DAILY 03/19/18 03/07/19 02/14/19 History Metformin [Glucophage] 500 mg PO DAILY 03/19/18 03/07/19 02/28/19 History Atorvastatin Calcium 40 mg PO DAILY 11/13/18 01/31/19 01/26/19 08:00 History Carvedilol [Coreg] 3.125 mg PO BID 11/13/18 03/07/19 02/14/19 History Gabapentin 800 mg PO TID 11/13/18 03/07/19 02/28/19 History Promethazine HCl 25 mg PO Q4-6H PRN PRN 11/13/18 03/07/19 02/28/19 History Albuterol 2.5MG/Ipratrop 0.5MG 3 ml INH TID PRN PRN #90 neb 11/16/18 03/07/19 02/28/19 Rx [Duoneb (A & A)] Albuterol Sulfate [Albuterol 2 puff INH Q4-6H PRN PRN 01/30/19 03/07/19 02/28/19 History Sulfate Hfa] Lamotrigine E.r. [Lamictal Xr] 100 mg PO DAILY #60 tab 03/09/19 Unknown Rx Review of Systems - Adult - REVIEW OF SYSTEMS - ADULT ROS:: limited per condition Constitutional: denies: chills, fever Eyes: reports: no symptoms reported Ears, Nose, Mouth & Throat: reports: no symptoms reported Cardiovascular: denies: chest pain, palpitations Respiratory: denies: cough, shortness of breath, wheezing Gastrointestinal: denies: abdominal pain, diarrhea, nausea, vomiting Genitourinary: reports: no symptoms reported Musculoskeletal: reports: no symptoms reported, back pain. denies: neck pain Integumentary: reports: no symptoms reported Neurological: reports: see HPI, headache/migraines, seizure, tremors. denies: dizziness/vertigo, slurred speech Psychiatric: reports: no symptoms reported Endocrine: reports: no symptoms reported Hematologic/Lymphatic: reports: no symptoms reported Allergic/Immunologic: reports: no symptoms reported All Other Systems: Reviewed and Negative <Yousif Parker - Last Filed: 03/12/19 19:27> Past History - Adult - PAST MEDICAL HISTORY-ADULT Review of Records: reports: Nursing Assessment Review, Medications Reviewed Major Childhood Illnesses: reports: denies history Cardiovascular: reports: denies history, HTN Respiratory: reports: COPD, denies history Gastrointestinal: reports: denies history Obstetrical/Gynecological: reports: denies history Genitourinary: reports: denies history Musculoskeletal: reports: denies history Hand Dominance: Right Handed Neurological: reports: Seizures/Epilepsy Psychiatric: reports: anxiety Endocrine/Immune: reports: denies history Other Conditions: reports: denies history - PRIOR SURGERIES/PROCEDURES Surgical/Procedure History: reports: reviewed, not pertinent, BTL - IMMUNIZATION STATUS Childhood Immunizations: See Nurse Assessment Flu Vaccine: See Nurse Assessment - FAMILY HISTORY Family History: reviewed, not pertinent - SOCIAL HISTORY Smoking: cigarettes, less than 1 pack/day Provider spent 3-5 mins advising pt. on dangers of tobacco.: Discussed manners to quit use, and f/u contacts for add'l counseling. Substance Use: denies Alcohol Use Frequency: never Living Situation: family <Yousif Parker - Last Filed: 03/12/19 19:27> Physical Exam-General - PHYSICAL EXAM-ADULT Initial Vital Signs Reviewed: Yes - CONSTITUTIONAL General Appearance: appears well, alert, other (confusion) - EYES Eyes: PERRL/EOMI, pink conjunctivae - HEAD, EARS, NOSE, MOUTH & THROAT HENMT: moist mucous membranes, normal ENT inspection - NECK Neck: full range of motion, normal inspection - RESPIRATORY Respiratory: chest non-tender, lungs clear, normal breath sounds, no pleuratic chest pain, no respiratory distress, no accessory muscle use - CARDIOVASCULAR Cardiovascular: normal peripheral pulses, regular rate, rhythm - CHEST (BREASTS) Chest/Breast: deferred - GASTROINTESTINAL (ABDOMEN) Abdominal Exam: normal bowel sounds, soft, tenderness (generalized). negative: guarding, rigid, rebound - LYMPHATIC Lymphatic: no adenopathy - MUSCULOSKELETAL Back Exam: normal inspection, no CVA tenderness, no vertebral tenderness Extremity: normal capillary refill - SKIN Integumentary: normal color, normal turgor, warm/dry - NEUROLOGIC Neurologic: no motor/sensory deficits - PSYCHIATRIC Psych/Mental Status: other (confused) <Yousif Parker - Last Filed: 03/12/19 19:27> Progress - PLAN OF CARE/RESULTS Progress/Plan/Lab Results: Vital Signs - 8 hr 03/12/19 15:15 Temperature 98.8 F Pulse Rate 96 H Respiratory Rate 18 Blood Pressure 91/59 O2 Sat by Pulse Oximetry 86 L Result Diagrams: 03/12/19 17:45 03/12/19 17:45 - REASSESSMENT Reassessment #1 Time Reassessed: 17:08 Status: unchanged - EKG 1 Time of EKG reading by physician:: 17:09 EKG Read and Signed by:: Yousif Parker EKG Interpretation (*Must complete 3 of following elements*): Normal Rate: 89 Rhythm: nsr Taylor: normal QRS: normal CT Interval: normal ST Wave: normal - CT/MRI 1 CT Study: Cervical Spine, Head Impression: See EMR Report (EXAM: CT HEAD/C-SPINE W/O CONTRAST INDICATION: se izure/fall/injury TECHNIQUE: This exam was performed using automated exposure control, adjustment of mA or kV according to patient size, and/or use of iterative reconstruction technique. COMPARISON: CT head dated 03/02/[address] C-spine dated 12/26/2018 FINDINGS: Head: There is severe motion artifact involving a few of the lower slices, which limits sensitivity at these levels. There is no definite acute infarct given the limited sensitivity of CT versus MRI. There is no discrete intracranial mass, mass effect, or intracranial hemorrhage. The surrounding soft tissues are essentially unremarkable. The calvaria is intact. C-spine: There has been prior anterior cervical fusion at C5-6 and C6-7. There are stable facet degenerative changes and degenerative disc disease at multiple levels. Otherwise, there is no discrete fracture, subluxation, or intrinsic osseous lesion. There is stable pulmonary emphysema and stable fibrosis at the right lung apex. Surrounding soft tissues are essentially unremarkable, otherwise. IMPRESSION: 1.No evidence of acute intracranial pathology. 2.Stable multilevel degenerative and postsurgical changes but no evidence of fracture or other definite acute C-spine injury. Electronically signed by Omar Rodriguez 03/12/2019 5:04 PM 03/12/19 7204 I nterpreting Physician: Omar Rodriguez MD Dictated Date/Time: 03/12/19 6511 cc: Yousif Parker MD;) - CHANGE OF SHIFT REPORT (ED Provider) 1 Report Given and Care Transferred to:: Dr Richards Time of Transfer: 19:00 Items Pending: Labs <Yousif Parker - Last Filed: 03/12/19 19:27> - PLAN OF CARE/RESULTS Progress/Plan/Lab Results: Vital Signs - 8 hr 03/12/19 15:15 03/12/19 18:08 Temperature 98.8 F 97.4 F L Pulse Rate 96 H 76 Respiratory Rate 18 18 Blood Pressure 91/59 113/63 O2 Sat by Pulse Oximetry 86 L 99 Laboratory Results - last 24 hr 03/12/19 03/12/19 03/12/19 17:45 17:45 17:45 WBC 7.11 RBC 2.93 L Hgb 8.3 L Hct 27.4 L MCV 93.5 MCH 28.3 MCHC 30.3 L RDW Std Deviation 12.2 Plt Count 203 MPV 9.8 Immature Gran % (Auto) 0.4 Neut % (Auto) 61.0 Lymph % (Auto) 24.2 Love % (Auto) 9.6 H Eos % (Auto) 3.7 Baso % (Auto) 1.1 H Immature Gran # (Auto) 0.03 Neut # (Auto) 4.34 Lymph # (Auto) 1.72 Love # (Auto) 0.68 H Eos # (Auto) 0.26 Baso # (Auto) 0.08 Sodium 139 Potassium 5.5 H Chloride 100 Carbon Dioxide 28 Anion Gap 10 BUN 21 Creatinine 1.6 H Estimated GFR/1.73 m2 33 BUN/Creatinine Ratio 13 Glucose 94 Calculated Osmolality 280 Calcium 10.0 Total Bilirubin 0.20 AST 10 ALT 17 Alkaline Phosphatase 108 H Total Protein 6.5 Albumin 3.9 Globulin 3.0 Albumin/Globulin Ratio 2.0 Urine Source CLEAN CATCH Urine Color YELLOW Urine Clarity CLEAR Urine pH 6.0 Ur Specific [place] 1.010 Urine Protein TRACE A Urine Ketones NEGATIVE Urine Blood NEGATIVE Urine Nitrite NEGATIVE Urine Bilirubin NEGATIVE Urine Urobilinogen NORMAL Urine WBC TRACE A Urine Glucose NEGATIVE Valproic Acid < 2.80 L Orders Category Date Time Status Nursing- Obtain EKG ONCE Care 03/12/19 16:[address] HEAD/C-SPINE W/O CONTRAST [CT] Stat Exams 03/12/19 16:18 Completed BMP [BASIC METABOLIC PANEL] [CHEM] Stat Lab 03/12/19 19:14 Ordered CBC WITH ELECTRONIC DIFF [HEME] Stat Lab 03/12/19 17:45 Completed COMPREHENSIVE METABOLIC PANEL [CHEM] Stat Lab 03/12/19 17:45 Com[address] UR[address]YSIS DIPSTICK ONLY PL [URINALYSIS] Stat Lab 03/12/19 17:45 Completed VALPROIC ACID [TDM] Stat Lab 03/12/19 17:45 Completed Sodium Bicarbonate 8.4% Med 03/12/19 19:58 Discontinued 50 meq IV PUSH NOW ONE EKG [EKG] Stat Ther 03/12/19 16:18 Ordered Result Diagrams: 03/12/19 17:45 03/12/19 17:45 - CONSULTS/PCP/HOSPITALIST Notification #1 *Consult/PCP/Hospitalist*: Dr. Quintero, hospitalist Time Discussed: 20:15 Consult Disposition: Admit <Chalino Richards - Last Filed: 03/12/19 20:38> Departure <Yousif Parker - Last Filed: 03/12/19 19:27> - Departure Date of Disposition Decision: 03/12/19 Time of Disposition Decision: 20:37 Certified Medical Emergency: Emergent - Critical Care Note This patient required my direct & personal management of CC.: No <Chalino Richards - Last Filed: 03/12/19 20:38> - Departure DIAGNOSIS: Hyperkalemia Uncontrolled seizures Qualifiers: Convulsion type: unspecified Qualified Code(s): R56.9 - Unspecified convulsions Hypotension Qualifiers: Hypotension type: unspecified hypotension type Qualified Code(s): I95.9 - Hypotension, unspecified Disposition: ADMITTED INPATIENT 09 Condition: Stable Referrals and Follow-Ups: None,PCP [Primary Care Provider] - Attestation - Physician/ LINDSEY Attestation Patient care was provided by Advanced Practice Provider:: No The physician spent face to face time with patient:: Yes Advanced Practice Provider documentation review:: Supervising physician onsite and consulted in the evaluation and care of this patient. The physician did have a face to face encounter with the patient. <Yousif Parker - Last Filed: 03/12/19 19:27> This chart was documented by the indicated scribe, (Tami Dotson Scribe) and accurately reflects the services I performed and decisions made by me, Yousif Parker MD, as attested by the provider's signature.
[2019-03-12] MEDS ORDERED: SODIUM BICARBONATE 8.4% IV PUSH ONE (19:58)
--- NOTE | 2019-03-12 20:14 | EKG Report ---
Test Performed on : 03/12/2019 5:09:44 PM Test Reason : seizure Blood Pressure : / mmHG Vent. Rate : 089 BPM Atrial Rate : 089 BPM P-R Int : 136 ms QRS Dur : 088 ms QT Int : 336 ms P-R-T Axes : 068 019 048 degrees QTc Int : 408 ms Normal sinus rhythm. Normal ECG When compared with ECG of 07-MAR-2019 09:42, T wave inversion no longer evident in Inferior leads T wave inversion no longer evident in Anterolateral leads QT has shortened Unconfirmed Result
[2019-03-12] MEDS ORDERED: KEPPRA 1,000 MG in NS 100 ML IV ONE ×2 (20:20→22:43)
[2019-03-12] MEDS ORDERED: NS 1,000 ML IV ONE ×2 (20:31→22:44)
[2019-03-12] MEDS ORDERED: ATIVAN IV PRN (20:32)
[2019-03-12] MEDS ORDERED: KAYEXALATE PO ONE (20:35)
[2019-03-12] MEDS: KAYEXALATE PO SCH (23:13)
[2019-03-12] MEDS: DUONEB (A & A) INH SCH (23:22)
[2019-03-13] MEDS: DUONEB (A & A) INH SCH ×3 (03:30→11:35)
[2019-03-13] MEDS: KAYEXALATE PO SCH (04:01)
[2019-03-13 08:13] LABS: CALCIUM 9.3 mg/dL (8.8-10.2); CREATININE 1.3 mg/dL (0.5-0.9); POTASSIUM 4.4 mmol/L (3.5-5.1)
--- NOTE | 2019-03-13 10:39 | HISTORY AND PHYSICAL ---
PRIMARY CARE PHYSICIAN: Dr. Thiago Bright CHIEF COMPLAINT: Fall and feeling dizzy with a possible seizure. HISTORY OF PRESENTING ILLNESS: This is a 58-year-old female who presents to [facility] ER after she was sent to the emergency room by the home health nurse after she had a fall and felt dizzy and was possibly having a seizure. Workup in the emergency room showed a potassium of 5.5, creatinine of 1.6. A CT of the head and cervical spine showed no evidence of acute intracranial pathology and no evidence of fracture or other definite acute C-spine injury, but she was admitted for further evaluation and treatment. PAST MEDICAL HISTORY: Seizures, anxiety, COPD, hypertension, breast cancer history of. PAST SURGICAL HISTORY: Bilateral mastectomy, a left port placement, back and neck surgery. FAMILY HISTORY: Reviewed and noncontributory. SOCIAL HISTORY: She currently lives alone. Smokes a pack of cigarettes a day. Denies any alcohol or illicit drug use. ALLERGIES: Hydrocodone. HOME MEDICATIONS: A current list will need to be obtained reconciled, reviewed and restarted as appropriate. We will place an order for nursing to update and confirm home medications. LABORATORY DATA: Showed a white blood cell count of 7.11, hemoglobin of 8.3, hematocrit 27.4, platelets 203,000. Sodium of 139, potassium of 5.5, chloride 100, CO2 28, BUN of 21, with a creatinine of 1.6, glucose of 94. Urinalysis was negative. Valproic acid level was less than 2.80, but she is not currently on any Depakote. Head and cervical spine CT showed no evidence of acute intracranial pathology. Stable multilevel degenerative and postsurgical changes but no evidence of fracture or other definite acute cervical spine injury. EKG showed normal sinus rhythm at 89. REVIEW OF SYSTEMS: She denied any fever, chills, blurred vision. She was positive for dizziness. She had a fall when she stood up secondary to the dizziness. She denied any chest pain, coughing, shortness of breath. She denied any abdominal pain, constipation, diarrhea, or burning or hurting with urination. PHYSICAL EXAMINATION: On arrival she had a temperature of 98.8 degrees, pulse of 96, respirations 18, blood pressure was 91/59, and was saturating 86% on room air. Currently, she is 93% on 3 L via nasal cannula. GENERAL: This is a 58-year-old female who is lying in the bed and answers questions appropriately. HEEMNT: Normocephalic, atraumatic. Normal ENT inspection. Oropharynx and nares are clear. EYES: Pupils are equal, round, reactive to light and accommodation. Extraocular movements are intact. NECK: Normal inspection, normal range of motion. LUNGS: Clear to auscultation bilaterally with equal lung expansion. Chest wall movement. HEART: With regular rate and rhythm. No murmurs, rubs, or gallops. ABDOMEN: Soft, nontender, nondistended. Bowel sounds are present x4 quadrants. MUSCULOSKELETAL: She has 5/5 strength x4 extremities. NEUROLOGICAL: The cranial nerves 2-12 appear grossly intact. ASSESSMENT: 1. Fall. 2. Questionable seizure with dizziness. 3. Hypoxemia. 4. Hyperkalemia. 5. Acute kidney injury. 6. Tobacco abuse. PLAN: She was admitted to the medical unit at [facility], placed on telemetry. Regular diet. Placed on seizure precautions. Neuro checks q.4 hours for 24 hours, Ativan 1 mg IV q.2 hours p.r.n. DuoNeb q.4. She was given Keppra 1000 mg IV x1 in the emergency room. Normal saline at 125 mL an hour. She was also given Kayexalate 30 g p.o. x1, sodium bicarbonate 50 mEq IV x1 in the emergency room to treat her hyperkalemia and that has resolved and has now returned to normal at 4.4. Her creatinine has improved down to 1.3 and almost back to her baseline. Further orders after being seen by attending. Dictated by RAY Roger for Papa Villanueva MD Addendum: Patient seen and examined by myself. Agree with RAY note. It reflects my assessment and plan. Patient is being admitted to hospital for hypotension so at this point will hold blood pressure meds. If vitals are ok will discharge her later on. She is taking Lamictal from her last visit to ER. cc: RAY Roger MD Malcolm Hendricks [facility] CENTERJenny
[2019-03-13 12:09] VITALS: BP 129/58
--- NOTE | 2019-03-14 02:13 | DISCHARGE SUMMARY ---
ADMISSION DATE: 03/12/2019 DISCHARGE DATE: 03/13/2019 PRIMARY CARE PHYSICIAN: Dr. Thiago Bright. ADMISSION DIAGNOSES: 1. Fall. 2. Questionable seizures with dizziness. 3. Hypoxemia. 4. Hyperkalemia. 5. Acute kidney injury. 6. Tobacco abuse. DISCHARGE DIAGNOSES: 1. Fall. 2. Questionable seizure with dizziness, resolved. 3. Hypoxemia, resolved. 4. Hyperkalemia, resolved. 5. Acute kidney injury, improved. 6. Tobacco abuse. SUMMARY OF FINDINGS: This is a 58-year-old female who presented to the ER after she had a fall at home and sent to the ER by Home Health nurse after she felt dizzy and it was felt that she may possibly be having a seizure. Her potassium on arrival was 5.5. Her creatinine was 1.6. Her CT of the head was normal and her C-spine showed no injury. So she was admitted, placed on neuro checks q.4 hours for 24 hours, placed on normal saline at 125 mL an hour. She was given Kayexalate 30 g p.o. x1, sodium bicarbonate 50 mEq x1 in the emergency room. Her hyperkalemia resolved. Her creatinine went down from 1.6 on arrival to 1.3. States she is feeling much better. No longer dizzy so it was felt that she could safely be discharged home. DISCHARGE MEDICATIONS: DuoNebs t.i.d. p.r.n., atorvastatin 40 mg p.o. daily, Celexa 20 mg p.o. daily, gabapentin 800 mg p.o. t.i.d., Lamictal 100 mg p.o. daily, lisinopril 20 mg p.o. daily, metformin 500 mg p.o. daily, promethazine 25 mg p.o. q.4-6 hours p.r.n. FOLLOWUP: She will need to follow up with her primary care physician in the next 1 to 2 weeks and call their office for an appointment. TIME: A 35 minute discharge. Dictated by RAY Roger for Papa Villanueva MD Addendum: Patient seen and examined by myself. Agree with RAY note. It reflects my assessment and plan. Patient is being discharged in stable condition to home and will be seen by PCP in a week. cc: RAY Roger MD [facility] R[facility] Hendricks, MD [facility]
== END 2019-03-13 14:23 | disposition home health service (06) ==
LOC: P.EDIPHOLD 15:20 → P.ED 15:20 → P.MEDSURG 03-13 02:04
PROVIDERS: ADMIT Internal Medicine; ATTEND Internal Medicine
CPT/HCPCS: 70450; 72125; 80048; 80053; 80164; 80165; 81003; 85025; 93005; 94640; 94761; A9270; J1953; J7030

== ENCOUNTER 2019-04-09 18:26 | Inpatient (IN) ==
--- NOTE | 2019-04-09 19:15 | PROVIDER DOCUMENTATION ---
HPI-Neurological Disorder - General Chief Complaint: Altered Mental Status Stated Complaint: AMS Time Seen by Provider: 04/09/19 18:55 Source: patient, family (daughter) Allergies/Adverse Reactions: Patient Allergies Allergy/AdvReac Type Severity Reaction Status Date / Time hydrocodone bitartrate * AdvReac ITCHING Verified 04/09/19 18:51 [From Lortab] Home Medications: Home Medication List Medication Instructions Recorded Confirmed Last Taken Type Citalopram Hydrobromide [Celexa] 20 mg PO DAILY 03/19/18 03/13/19 02/28/19 History LISINOpril [Prinivil] 20 mg PO DAILY 03/19/18 03/13/19 02/14/19 History Metformin [Glucophage] 500 mg PO DAILY 03/19/18 03/13/19 02/28/19 History Atorvastatin Calcium 40 mg PO DAILY 11/13/18 03/13/19 01/26/19 08:00 History Gabapentin 800 mg PO TID 11/13/18 03/13/19 02/28/19 History Promethazine HCl 25 mg PO Q4-6H PRN PRN 11/13/18 03/13/19 02/28/19 History Albuterol 2.5MG/Ipratrop 0.5MG 3 ml INH TID PRN PRN #90 neb 11/16/18 03/13/19 02/28/19 Rx [Duoneb (A & A)] Albuterol Sulfate [Albuterol 2 puff INH Q4-6H PRN PRN 01/30/19 03/13/19 02/28/19 History Sulfate Hfa] Lamotrigine E.r. [Lamictal Xr] 100 mg PO DAILY #60 tab 03/09/19 03/13/19 Unknown Rx - History of Present Illness-Neuro Nature of Presenting Problem: daughter reports that she has been disoriented and confused for the last couple days. and she also fell while standing her up but she was able to get up with assistance. pt lives alone and takes care of her medicine on her own. home health nurse comes once aweek to chek on her. while seeing pt in the room, she mentions that she has had seizure (she says the nurse told her that, but she was at home when all these thigns happened. denied fever, chills, n/v/diarrhea. she says that she eats ok. she is alert and oriented at this time. Review of Systems - Adult - REVIEW OF SYSTEMS - ADULT Constitutional: reports: no symptoms reported Eyes: reports: no symptoms reported Ears, Nose, Mouth & Throat: reports: no symptoms reported Cardiovascular: reports: no symptoms reported Respiratory: reports: no symptoms reported Gastrointestinal: reports: no symptoms reported Genitourinary: reports: no symptoms reported Musculoskeletal: reports: no symptoms reported Integumentary: reports: no symptoms reported Neurological: reports: no symptoms reported Psychiatric: reports: no symptoms reported Endocrine: reports: no symptoms reported Hematologic/Lymphatic: reports: no symptoms reported Allergic/Immunologic: reports: no symptoms reported All Other Systems: Reviewed and Negative Past History - Adult - PAST MEDICAL HISTORY-ADULT Review of Records: reports: Old Records Reviewed, Nursing Assessment Review, Medications Reviewed, Social history reviewed & non-contributory. Major Childhood Illnesses: reports: denies history Cardiovascular: reports: denies history, HTN Respiratory: reports: COPD, denies history Gastrointestinal: reports: denies history Obstetrical/Gynecological: reports: denies history Genitourinary: reports: denies history Musculoskeletal: reports: denies history Neurological: reports: denies history Psychiatric: reports: anxiety Endocrine/Immune: reports: denies history Other Conditions: reports: denies history - PRIOR SURGERIES/PROCEDURES Surgical/Procedure History: reports: reviewed, not pertinent - IMMUNIZATION STATUS Childhood Immunizations: See Nurse Assessment Flu Vaccine: See Nurse Assessment - FAMILY HISTORY Family History: reviewed, not pertinent - SOCIAL HISTORY Smoking: denies Substance Use: none/never Alcohol Use Frequency: never Living Situation: alone Physical Exam- Neurological - Physical Exam-Neuro Initial Vital Signs Reviewed: Yes (low blood pressure) General Appearance: alert, no apparent distress Eye Exam: bilateral eye: normal inspection, PERRL, EOMI HENMT: normocephalic/atraumatic (dry mucous membrane), normal ENT inspection Head Injury: no evidence of injury Neck: non-tender, full range of motion, supple Respiratory: chest non-tender Cardiovascular: normal peripheral pulses, regular rate, rhythm, no edema Abdominal Exam: normal bowel sounds, non tender, soft Extremity: normal range of motion, non-tender, normal gait, normal inspection green coffee blender Exam: normal hearing, normal speech, PERRL Coordination/Gait: other (up with assistance) Motor/Sensory: no motor deficit, no sensory deficit, no pronator drift Neurologic: grossly normal, no motor/sensory deficits Integumentary: normal color, warm/dry Psych/Mental Status: oriented x 3 - Glascow Coma Scale Best Eye Response: (4) open spontaneously Best Verbal Response: (5) oriented Best Motor Response: (6) obeys commands Progress - PLAN OF CARE/RESULTS Progress/Plan/Lab Results: Vital Signs - 8 hr 04/09/19 18:32 04/09/19 19:42 Temperature 98.8 F Pulse Rate 78 Pulse Rate [Sitting] 70 Pulse Rate [Standing] 77 Pulse Rate [Supine] 67 Respiratory Rate 16 Blood Pressure 97/59 Blood Pressure [Sitting] 114/67 Blood Pressure [Standing] 98/56 Blood Pressure [Supine] 106/55 O2 Sat by Pulse Oximetry 95 Laboratory Results - last 24 hr 04/09/19 04/09/19 04/09/19 19:04 19:20 19:20 WBC 7.16 RBC 3.00 L Hgb 8.3 L Hct 28.5 L MCV 95.0 MCH 27.7 MCHC 29.1 L RDW Std Deviation 12.1 Plt Count 213 MPV 9.6 Immature Gran % (Auto) 0.3 Neut % (Auto) 75.3 H Lymph % (Auto) 14.7 L [place] % (Auto) 7.3 Eos % (Auto) 2.0 Baso % (Auto) 0.4 Immature Gran # (Auto) 0.02 Neut # (Auto) 5.40 Lymph # (Auto) 1.05 L [place] # (Auto) 0.52 Eos # (Auto) 0.14 Baso # (Auto) 0.03 PT INR PTT (Actin FS) Specimen Type Sample Site pH pCO2 pO2 HCO3 Base Excess Oxyhemoglobin ABG O2 Sat (Calculated) ABG O2 Saturation ABG Carboxyhemoglobin ABG Methemoglobin [place] Test A-a O2 Difference Total Hemoglobin Lactate Liter Flow Blood Gas Modality FiO2 % Sodium Potassium Chloride Carbon Dioxide Anion Gap BUN Creatinine Estimated GFR/1.73 m2 BUN/Creatinine Ratio Glucose Calculated Osmolality Calcium Total Bilirubin AST ALT Alkaline Phosphatase Creatine Kinase Creatine Kinase Index CK-MB (CK-2) Troponin T < 0.010 Total Protein Albumin Globulin Albumin/Globulin Ratio Plasma Lactate Urine Source CLEAN CATCH Urine Color YELLOW Urine Clarity CLEAR Urine pH 7.0 Ur Specific [place] 1.000 Urine Protein TRACE A Urine Ketones NEGATIVE Urine Blood NEGATIVE Urine Nitrite NEGATIVE Urine Bilirubin NEGATIVE Urine Urobilinogen NORMAL Urine Microscopic RBC <10 Urine WBC TRACE A Urine Microscopic WBC <10 Ur Epithelial Cells <10 Urine Bacteria NEGATIVE Urine Glucose NEGATIVE 04/09/19 04/09/19 04/09/19 19:20 19:20 19:20 WBC RBC Hgb Hct MCV MCH MCHC RDW Std Deviation Plt Count MPV Immature Gran % (Auto) Neut % (Auto) Lymph % (Auto) [place] % (Auto) Eos % (Auto) Baso % (Auto) Immature Gran # (Auto) Neut # (Auto) Lymph # (Auto) [place] # (Auto) Eos # (Auto) Baso # (Auto) PT 13.5 INR 0.98 PTT (Actin FS) 35.7 Specimen Type Sample Site pH pCO2 pO2 HCO3 Base Excess Oxyhemoglobin ABG O2 Sat (Calculated) ABG O2 Saturation ABG Carboxyhemoglobin ABG Methemoglobin [place] Test A-a O2 Difference Total Hemoglobin Lactate Liter Flow Blood Gas Modality FiO2 % Sodium 143 Potassium 4.3 Chloride 94 L Carbon Dioxide 40 H Anion Gap 9 BUN 12 Creatinine 0.8 Estimated GFR/1.73 m2 > 60 BUN/Creatinine Ratio 15 Glucose 117 H Calculated Osmolality 286 Calcium 9.0 Total Bilirubin 0.20 AST 17 ALT 11 Alkaline Phosphatase 135 H Creatine Kinase 205 H Creatine Kinase Index 1.2 CK-MB (CK-2) 2.51 Troponin T Total Protein 6.1 L Albumin 3.9 Globulin 2.0 Albumin/Globulin Ratio 2.0 Plasma Lactate 1.2 Urine Source Urine Color Urine Clarity Urine pH Ur Specific [place] Urine Protein Urine Ketones Urine Blood Urine Nitrite Urine Bilirubin Urine Urobilinogen Urine Microscopic RBC Urine WBC Urine Microscopic WBC Ur Epithelial Cells Urine Bacteria Urine Glucose 04/09/19 19:45 WBC RBC Hgb Hct MCV MCH MCHC RDW Std Deviation Plt Count MPV Immature Gran % (Auto) Neut % (Auto) Lymph % (Auto) [place] % (Auto) Eos % (Auto) Baso % (Auto) Immature Gran # (Auto) Neut # (Auto) Lymph # (Auto) [place] # (Auto) Eos # (Auto) Baso # (Auto) PT INR PTT (Actin FS) Specimen Type ARTERIAL Sample Site R BRACHIAL pH 7.40 pCO2 76 H* pO2 116 H HCO3 40.0 H Base Excess 19.4 H Oxyhemoglobin 94.0 L ABG O2 Sat (Calculated) 12.4 L ABG O2 Saturation 98.7 ABG Carboxyhemoglobin 4.00 H ABG Methemoglobin 0.7 [place] Test NO A-a O2 Difference 46.0 Total Hemoglobin 9.2 L Lactate 0.80 Liter Flow 4.0 Blood Gas Modality CANNULA FiO2 % 36.0 Sodium Potassium Chloride Carbon Dioxide Anion Gap BUN Creatinine Estimated GFR/1.73 m2 BUN/Creatinine Ratio Glucose Calculated Osmolality Calcium Total Bilirubin AST ALT Alkaline Phosphatase Creatine Kinase Creatine Kinase Index CK-MB (CK-2) Troponin T Total Protein Albumin Globulin Albumin/Globulin Ratio Plasma Lactate Urine Source Urine Color Urine Clarity Urine pH Ur Specific [place] Urine Protein Urine Ketones Urine Blood Urine Nitrite Urine Bilirubin Urine Urobilinogen Urine Microscopic RBC Urine WBC Urine Microscopic WBC Ur Epithelial Cells Urine Bacteria Urine Glucose Orders Category Date Time Status Cardiac Monitoring DIRECTED Care 04/09/19 18:56 Active Finger Stick Blood Sugar (ED) DIRECTED Care 04/09/19 18:56 Active Orthostatic Vital Signs NOW Care 04/09/19 19:27 Active Oxygen Therapy- ED Nursing DIRECTED Care 04/09/19 18:56 Active Saline Loc NOW Care 04/09/19 18:56 Active cxr [CHEST-2 VIEWS] [RAD] Stat Exams 04/09/19 20:14 Completed ABG [RESP] Routine Lab 04/09/19 19:45 Completed CBC WITH ELECTRONIC DIFF [HEME] Stat Lab 04/09/19 19:20 Completed CK PROFILE [SP CHEM] Stat Lab 04/09/19 19:20 Completed COMPREHENSIVE METABOLIC PANEL [CHEM] Stat Lab 04/09/19 19:20 Completed LACTATE, PLASMA [CHEM] Stat Lab 04/09/19 19:20 Completed PROTIME WITH INR [COAG] Stat Lab 04/09/19 19:20 Completed PTT [COAG] Stat Lab 04/09/19 19:20 Completed TROPONIN T Stat Lab 04/09/19 19:20 Completed URINE CULTURE [RM] Routine Lab 04/09/19 20:44 Ordered ua [URINALYSIS PL W/POSS RFLX CULT] [URINALYSIS] Stat Lab 04/09/19 19:04 Completed 0.9% Sodium Chloride Inj [Ns] 1,000 ml Med 04/09/19 19:27 Discontinued IV 999 mls/hr 0.9% Sodium Chloride Inj [Ns] 1,000 ml Med 04/09/19 20:33 Active IV 999 mls/hr Altered Mental Status Stat Oth 04/09/19 18:56 Ordered BIPAP Stat Oth 04/09/19 20:43 Active EKG [EKG] NOW Ther 04/09/19 18:56 Draft Result Diagrams: 04/09/19 19:20 04/09/19 19:20 - CONSULTS/PCP/HOSPITALIST Notification #1 *Consult/PCP/Hospitalist*: Dr. Quintero Consult Disposition: Admit (to ICU) Departure - Departure Date of Disposition Decision: 04/09/19 Time of Disposition Decision: 21:01 DIAGNOSIS: Altered mental state, Hypotension, postural, CO2 narcosis, Anemia Disposition: ADMITTED INPATIENT 09 Certified Medical Emergency: Emergent Condition: Stable Referrals and Follow-Ups: Thiago Bright MD [Primary Care Provider] - - Critical Care Note This patient required my direct & personal management of CC.: No Attestation - Physician/ LINDSEY Attestation The physician spent face to face time with patient:: Yes Advanced Practice Provider documentation review:: Supervising physician onsite and consulted in the evaluation and care of this patient. The physician did have a face to face encounter with the patient.
[2019-04-09] MEDS ORDERED: NS 1,000 ML IV ONE ×2 (19:27→20:33)
[2019-04-09 19:44] LABS: BASO# 0.03 X1000 (0.0-0.2); BASO% 0.4 % (0.0-0.8); EOS# 0.14 X1000 (0.0-0.7); HEMATOCRIT 28.5 % (37.0-47.0); HEMOGLOBIN 8.3 g/dL (12.0-16.0); IMM GRAN# 0.02 X1000 (0.0-0.04); IMM GRAN% 0.3 % (0.0-0.5); LYMPH# 1.05 X1000 (1.2-3.4); LYMPH% 14.7 % (20.5-51.1); MCH 27.7 PG (27-31); MCHC 29.1 g/dL (33-37); MONO# 0.52 X1000 (0.11-0.59); MONO% 7.3 % (1.7-9.3); MPV 9.6 FL (7.4-10.4); NEUT% 75.3 % (42.2-75.2); PLT 213 X1000 (130-400); RDW 12.1 % (11.5-14.5); WBC 7.16 X1000 (4.8-10.8)
[2019-04-09 20:03] LABS: INR 0.98; PROTIME 13.5 Seconds (11.0-16.0)
[2019-04-09 20:04] LABS: BE 19.4 mmoll (-3.0-3.0); BLOOD TYPE ARTERIAL; METHB 0.7 % (0.0-1.5); O2(CT) 12.4 mL/dL (15.0-23.0); PO2(98.6) 116 mmHg (60-100); SAMPLE BLOOD; SAO2 98.7 % (95.0-100.0); THB 9.2 g/dL (11.5-17.4)
[2019-04-09 20:04] LABS: PTT 35.7 Seconds (22.3-41.8)
[2019-04-09 20:09] LABS: ALLEN TEST NO; MODALITY CANNULA; PCO2(98.6) 76 mmHg (35-45)
--- NOTE | 2019-04-09 20:19 | EKG Report ---
Test Performed on : 04/09/2019 6:58:17 PM Test Reason : ams Blood Pressure : / mmHG Vent. Rate : 072 BPM Atrial Rate : 072 BPM P-R Int : 148 ms QRS Dur : 094 ms QT Int : 422 ms P-R-T Axes : 057 049 235 degrees QTc Int : 462 ms Normal sinus rhythm. Incomplete right bundle branch block Anteroseptal infarct , age undetermined T wave abnormality, consider inferolateral ischemia Abnormal ECG When compared with ECG of 12-MAR-2019 17:09, (Unconfirmed) ST no longer elevated in Lateral leads T wave inversion now evident in Inferior leads T wave inversion now evident in Lateral leads QT has lengthened Unconfirmed Result
[2019-04-09 20:28] LABS: AGAP 9; ALBUMIN 3.9 g/dL (3.5-5.0); ALKALINE PHOSPHATASE 135 U/L (32-104); BUN 12 mg/dL (8-22); CHLORIDE 94 mmol/L (98-107); CK PROFILE 205 U/L (24-173); COSMO 286; CREATININE 0.8 mg/dL (0.5-0.9); ESTIMATED GFR > 60; GLUCOSE 117 mg/dL (70-104); GOT 17 U/L (10-30); GPT 11 U/L (10-36); POTASSIUM 4.3 mmol/L (3.5-5.1); SODIUM 143 mmol/L (136-145); TCO2 40 mmol/L (25-35); TOTAL PROTEIN 6.1 g/dL (6.3-8.3)
[2019-04-09 20:29] LABS: BILIRUBIN URINE NEGATIVE (NEGATIVE); BLOOD URINE NEGATIVE (NEGATIVE); CLARITY CLEAR (CLEAR); COLOR YELLOW; GLUCOSE URINE NEGATIVE (NEGATIVE); KETONE URINE NEGATIVE (NEGATIVE); LEUKOCYTES URINE TRACE (NEGATIVE); NITRITE URINE NEGATIVE (NEGATIVE); PROTEIN URINE TRACE mg/dL (NEGATIVE); UROBILINOGEN URINE NORMAL
--- NOTE | 2019-04-09 20:40 | Diag Imaging Result Doc PS360 ---
EXAM: CHEST-2 VIEWS HISTORY: ams TECHNIQUE: Chest two views COMPARISON: 03/09/2019 FINDINGS: The lungs are well expanded. The heart is not enlarged. There is a left-sided portacatheter. No pneumothorax. The vessels are not distended. There are no infiltrates. No pleural effusions. There are multiple right axillary surgical clips. IMPRESSION: No acute abnormality. Electronically signed by Mike Crowder 04/09/2019 8:38 PM
[2019-04-09 20:44] LABS: URINE BACTERIA NEGATIVE /HFP; URINE EPITHELIAL CELLS <10 /HPF (<10); URINE RBC <10 /HPF (<10); URINE SOURCE CLEAN CATCH; URINE WBC <10 /HPF (<10)
[2019-04-09 20:57] LABS: CK INDEX 1.2 (0.0-2.5); CK-MB 2.51 ng/mL (0.0-5.0)
[2019-04-10 06:42] LABS: BASO# 0.02 X1000 (0.0-0.2); BASO% 0.4 % (0.0-0.8); EOS# 0.09 X1000 (0.0-0.7); EOS% 1.6 % (0.0-10.0); HEMATOCRIT 27.3 % (37.0-47.0); HEMOGLOBIN 7.9 g/dL (12.0-16.0); IMM GRAN# 0.01 X1000 (0.0-0.04); IMM GRAN% 0.2 % (0.0-0.5); LYMPH# 1.53 X1000 (1.2-3.4); LYMPH% 27.1 % (20.5-51.1); MCH 27.6 PG (27-31); MCHC 28.9 g/dL (33-37); MCV 95.5 FL (81-99); MONO# 0.44 X1000 (0.11-0.59); MONO% 7.8 % (1.7-9.3); MPV 9.9 FL (7.4-10.4); NEUT# 3.56 X1000 (1.4-6.5); NEUT% 62.9 % (42.2-75.2); PLT 195 X1000 (130-400); RBC 2.86 XMIL (4.2-5.4); RDW 12.3 % (11.5-14.5); WBC 5.65 X1000 (4.8-10.8)
[2019-04-10 08:07] LABS: AGAP 7; BUN 9 mg/dL (8-22); CALCIUM 8.6 mg/dL (8.8-10.2); CHLORIDE 99 mmol/L (98-107); COSMO 285; CREATININE 0.7 mg/dL (0.5-0.9); ESTIMATED GFR > 60; GLUCOSE 85 mg/dL (70-104); POTASSIUM 3.7 mmol/L (3.5-5.1); SODIUM 144 mmol/L (136-145); TCO2 39 mmol/L (25-35)
[2019-04-10 08:33] LABS: BE 17.1 mmoll (-3.0-3.0); BLOOD TYPE ARTERIAL; HCO3-(ACT) 38.2 mmoll (20.0-26.0); O2(CT) 12.2 mL/dL (15.0-23.0); O2HB 94.6 % (95.0-99.0); PO2(98.6) 87 mmHg (60-100); SAMPLE BLOOD; SAO2 97.8 % (95.0-100.0); THB 9.1 g/dL (11.5-17.4); pH(98.6) 7.36 (7.35-7.45)
[2019-04-10 08:50] LABS: ALLEN TEST YES; MODALITY CANNULA; PCO2(98.6) 80 mmHg (35-45)
[2019-04-10] MEDS ORDERED: SOLU-MEDROL IV SCH (10:00)
[2019-04-10] MEDS ORDERED: DUONEB (A & A) ONE (10:51)
--- NOTE | 2019-04-10 11:08 | HISTORY AND PHYSICAL ---
PRIMARY CARE PHYSICIAN: Thiago Bright MD CHIEF COMPLAINT: Altered mental status. HISTORY OF PRESENT ILLNESS: This is a 58-year-old female, who presents to the ER for disorientation and confusion. The patient's daughter states that she lives alone and has a home health nurse who visits once a week. The patient does administer her own home medications, but states that she thinks she takes her medications incorrectly. The patient also states that she fell at home, but was able to get up and had a "seizure" while at home. The patient was subsequently admitted to the emergency room for confusion. The patient's EKG showed normal sinus rhythm with incomplete right bundle branch block, and her chest x- ray showed no acute abnormality. pCO2 of 76.76, and the patient was subsequently admitted. PATIENT'S PAST MEDICAL HISTORY: Includes hypertension, COPD, anxiety, seizures, and breast cancer. PATIENT'S SURGICAL HISTORY: Includes a hysterectomy and mastectomy, tubal ligation, and left Port- A-Cath placement. PATIENT'S FAMILY HISTORY: Noncontributory. PATIENT'S SOCIAL HISTORY: Denies the use of alcohol. States that she does smoke about 10 cigarettes a day. Denies any illicit drug use and lives at home. PATIENT'S ALLERGIES: Hydrocodone. PATIENT'S HOME MEDICATIONS: Include Celexa 20 mg p.o. daily. Lisinopril 20 mg p.o. daily. Metformin 500 mg p.o. daily. Atorvastatin 40 mg p.o. daily. Gabapentin 800 mg t.i.d. Promethazine 25 mg p.o. q.4-6 h. p.r.n. DuoNeb 3 mL t.i.d. p.r.n. Albuterol 2 puffs inhaler q.4- 6 h. P.r.n. Lamictal 100 mg p.o. daily. REVIEW OF SYSTEMS: General: Patient denies any fever or chills or flu-like symptoms or weight changes. HEENT: Patient denies headaches, vision changes, hoarseness. Neck: Denies neck pain. Endocrine: Denies excessive thirst, urination, or intolerance to cold. Cardiovascular: The patient denies chest pain, palpitations, orthopnea. Respiratory: The patient does state that she has shortness of breath with exertion and wears home O2. Gastrointestinal: Patient denies any nausea, vomiting, diarrhea, or constipation. Genitourinary: Patient denies urgency, burning, or frequency. Musculoskeletal: Patient states that she has had weakness. Neurological: Patient denies dizziness or memory loss at this time, but does state that she felt that she was more confused while at home. Skin: The patient denies any skin rash or lesions. DIAGNOSTIC STUDIES: Laboratory: The patient's hemoglobin was 7.9, hematocrit 27, the patient's platelet is 195,000, WBCs of 5.65. PT 13.5, INR is 0.98, PTT 37.5. Blood gases: PH of 7.36, pCO2 of 80, PO2 of 87, HCO3 of 38.2, base excess 17.1, lactate was 0.30, the patient is on 4 L nasal cannula. Sodium 144, potassium 3.7, chloride was 99, BUN was 9, creatinine of 0.7, AST is 17, ALT was 11, calcium was 8.6. Urine shows trace proteins, trace WBCs, negative for nitrites and glucose, negative for any urine bacteria. The patient's chest x-ray showed no acute abnormality. Patient's EKG showed a normal sinus rhythm with a rate of 72. Incomplete right bundle branch block. T-wave abnormalities. Anterior septal infarct with age undetermined. When compared with the EKG on 03/12/2019, ST was no longer elevated in lateral leads. T-wave inversion now evident in inferior leads and T-wave inversion now evident in the lateral leads as well. QT has lengthened. PHYSICAL EXAMINATION: VITAL SIGNS: The patient's temperature is 98.8 degrees, pulse is 78, respiratory rate was 16, blood pressure 97/59, with 95% on 4 L nasal cannula. GENERAL: This is a well-appearing 65-year-old female, who is alert and oriented x4. She is well developed. HEENT: Patient is normocephalic. PERRLA. Patient's mucous membranes are moist. NECK: Has no lymphadenopathy. Trachea is midline. No JVD is noted. CARDIOVASCULAR: No murmurs, gallops, or rubs. Rate and rhythm are regular. RESPIRATORY: Lung sounds are diminished posteriorly. The patient has nonlabored respirations. GASTROINTESTINAL: The patient's abdomen is soft and nontender to palpation of all 4 quadrants. Bowel sounds present x4 quadrants. NEUROLOGICAL: Cranial nerves 2-12 grossly intact. MUSCULOSKELETAL: 5/5 in all 4 extremities. SKIN: Warm, dry, and intact. ASSESSMENT: 1. Acute chronic obstructive pulmonary disease exacerbation, carbon dioxide narcosis. 2. Anemia. 3. Medication noncompliance. 4. Tobacco abuse. PLAN: 1. admit to [place] and place on BiPAP for acute COPD exacerbation with CO2 narcosis. 2. aerosol treatments. 3. heart healthy diet. 4. ABG, BMP, CBC and urine culture are pending. 5. Medications. albuterol, DuoNeb treatments, methylprednisone 80 mg IV q.8 h., Rocephin 1 g q.24 h. , and azithromycin 500 mg q.24 h. 6. continue to monitor anemia, presently 7.8, but I do believe it is dilutional related to 2 L of fluids. 7. Medication noncompliance. The patient does have home health coming in to assist once a week. We will discuss and reeducate the patient on the appropriate use of medications and medication compliance. 8. Tobacco abuse. Encouraged the patient for smoking cessation, and we educated the patient in regards to the perils of smoking with associated COPD. Further recommendations will be pending her clinical course and response to therapy. Dictated by RAY Fraser for Papa Villanueva MD Addendum: Patient seen and examined by myself. Agree with RAY note. It reflects my assessment and plan. Patient is being admitted to hospital for acute on chronic respiratory failure secondary to COPD exacerbation. Patient reports also not sure if she has seizures or not. She is very well known to be non compliant with medications and has been several times admitted here for seizures. Will start patient on Bipap and will check ABG daily. If CO2 continues to be elevated we may need to transfer this patient for Pulmonary evaluation. cc: Papa Villanueva MD [facility]
[2019-04-10] MEDS: ROCEPHIN 1 GM in NS 50 ML IV SCH (11:10)
[2019-04-10] MEDS: DUONEB (A & A) INH SCH ×4 (11:16→23:45)
[2019-04-10] MEDS: ZITHROMAX 500 MG/NS 500 MG/250 ML IVPB IV SCH (12:24)
[2019-04-10] MEDS ORDERED: PHENERGAN PO PRN (13:30)
[2019-04-10] MEDS: NEURONTIN PO SCH ×2 (13:54→20:16)
[2019-04-10] MEDS: SUBUTEX SL SCH ×2 (13:55→20:16)
[2019-04-10] MEDS ORDERED: LAMICTAL XR PO ONE (17:00)
[2019-04-10] MEDS: LAMICTAL XR PO SCH (17:46)
[2019-04-10] MEDS: PRILOSEC PO SCH (18:58)
[2019-04-10] MEDS: LIPITOR PO SCH (20:16)
[2019-04-10] MEDS: COREG PO SCH (20:16)
[2019-04-10] MEDS: SOLU-MEDROL IV SCH (20:16)
[2019-04-11] MEDS: DUONEB (A & A) INH SCH ×6 (03:35→23:37)
[2019-04-11 04:07] LABS: BE 17.9 mmoll (-3.0-3.0); BLOOD TYPE ARTERIAL; HCO3-(ACT) 38.9 mmoll (20.0-26.0); O2(CT) 12.1 mL/dL (15.0-23.0); PO2(98.6) 73 mmHg (60-100); SAMPLE BLOOD; SAO2 97.3 % (95.0-100.0); THB 9.1 g/dL (11.5-17.4); pH(98.6) 7.46 (7.35-7.45)
[2019-04-11 04:09] LABS: PCO2(98.6) 62 mmHg (35-45)
[2019-04-11 04:10] LABS: ALLEN TEST YES; MODALITY BI PAP
[2019-04-11] MEDS: SOLU-MEDROL IV SCH ×3 (04:54→20:28)
[2019-04-11] MEDS: PRILOSEC PO SCH (06:22)
[2019-04-11] MEDS: NEURONTIN PO SCH ×3 (06:22→20:28)
[2019-04-11 06:24] LABS: AGAP 8; BUN 10 mg/dL (8-22); CALCIUM 8.9 mg/dL (8.8-10.2); CHLORIDE 95 mmol/L (98-107); COSMO 278; CREATININE 0.7 mg/dL (0.5-0.9); ESTIMATED GFR > 60; GLUCOSE 122 mg/dL (70-104); POTASSIUM 4.2 mmol/L (3.5-5.1); SODIUM 139 mmol/L (136-145); TCO2 36 mmol/L (25-35)
[2019-04-11 06:30] LABS: HEMATOCRIT 27.5 % (37.0-47.0); HEMOGLOBIN 8.4 g/dL (12.0-16.0); LYMPH% 21.3 % (20.5-51.1); MCH 27.9 PG (27-31); MCHC 30.5 g/dL (33-37); MCV 91.4 FL (81-99); MPV 10.1 FL (7.4-10.4); NEUT% 71.6 % (42.2-75.2); PLT 222 X1000 (130-400); RBC 3.01 XMIL (4.2-5.4); RDW 12.1 % (11.5-14.5); WBC 7.13 X1000 (4.8-10.8)
[2019-04-11 06:31] LABS: BASO# 0.02 X1000 (0.0-0.2); BASO% 0.3 % (0.0-0.8); EOS# 0.01 X1000 (0.0-0.7); EOS% 0.1 % (0.0-10.0); IMM GRAN# 0.01 X1000 (0.0-0.04); IMM GRAN% 0.1 % (0.0-0.5); LYMPH# 1.52 X1000 (1.2-3.4); MONO# 0.47 X1000 (0.11-0.59); MONO% 6.6 % (1.7-9.3)
--- NOTE | 2019-04-11 09:39 | PROGRESS NOTE ---
DATE: 04/11/2019 SUBJECTIVE: Patient reports feeling fine. Definitely is more alert and awake. Not complaining of anything at this time. OBJECTIVE: Vital Signs: Temperature 98.9 degrees, heart rate 56, respiratory rate 16, blood pressure 137/60, O2 saturation 97% on BiPAP. General examination: This is a chronically ill- appearing, 58-year-old female, lying in bed in no acute distress. Cardiovascular exam: S1, S2 heard. No murmurs, gallops, or rubs. Regular rate and rhythm. Respiratory exam: Decreased breath sounds globally. The patient is not using any accessory muscles or having work of breathing. Abdomen: Soft. Nontender to palpation. Bowel sounds present. No organomegaly. Extremities: No clubbing, cyanosis or edema. Peripheral pulses present in both legs. Neurological exam: Patient is alert and oriented x3. Moves 4 extremities. LABORATORY DATA: The hemoglobin is 8.4. ABG shows pH 7.46 with pCO2 62, PO2 73. ASSESSMENT/PLAN: 1. Acute hypercapnic respiratory failure secondary to chronic obstructive pulmonary disease exacerbation. That is the reason why this patient was admitted. CO2 was very elevated at admission of 76 and yesterday was 80, so we placed this patient on BiPAP at night and ate as much as she could tolerate. CO2 is definitely better than what it was. At this point, I think we are going to continue with breathing treatments, BiPAP. I will transfer this patient to a regular room. 2. Anemia of chronic disease. Hemoglobin is 8.6. We will continue to monitor. 3. Seizure disorder. The patient is supposed to be on Keppra, but the patient does not remember what the dose is and what is the name of the medication that she is supposed to be on. She has a very strong history of noncompliance with medication. At this point, we will restart Keppra, but I am already concerned about her taking medications. We will monitor this patient closely. 4. Tobacco abuse. Patient recommended to stop smoking. 5. Disposition: The patient requests to be sent to rehabilitation facility. flat screen worker has been notified. Will transfer this patient out of the intensive care unit today. cc: Papa Villanueva MD
[2019-04-11] MEDS: SUBUTEX SL SCH ×2 (10:05→20:28)
[2019-04-11] MEDS: PRINIVIL PO SCH (10:05)
[2019-04-11] MEDS: ROCEPHIN 1 GM in NS 50 ML IV SCH (10:05)
[2019-04-11] MEDS: LAMICTAL XR PO SCH (10:06)
[2019-04-11] MEDS: CELEXA PO SCH (10:06)
[2019-04-11] MEDS: COREG PO SCH ×2 (10:06→20:28)
[2019-04-11] MEDS: ZITHROMAX 500 MG/NS 500 MG/250 ML IVPB IV SCH (11:30)
[2019-04-11] MEDS: LIPITOR PO SCH (20:28)
[2019-04-12] MEDS: DUONEB (A & A) INH SCH ×3 (03:40→11:58)
[2019-04-12] MEDS: SOLU-MEDROL IV SCH ×2 (03:45→12:34)
[2019-04-12] MEDS: NEURONTIN PO SCH ×2 (05:48→12:34)
[2019-04-12] MEDS: PRILOSEC PO SCH (06:20)
[2019-04-12] MEDS ORDERED: SYMBICORT 160/4.5 MICROGM INHALER INH SCH (09:00)
[2019-04-12] MEDS ORDERED: FERROUS SULFATE PO SCH (09:00)
[2019-04-12] MEDS ORDERED: ZITHROMAX PO SCH (09:00)
[2019-04-12] MEDS ORDERED: SPIRIVA INH SCH (09:00)
[2019-04-12] MEDS: LAMICTAL XR PO SCH (09:07)
[2019-04-12] MEDS: CELEXA PO SCH (09:07)
[2019-04-12] MEDS: SUBUTEX SL SCH (09:07)
[2019-04-12] MEDS: COREG PO SCH (09:07)
[2019-04-12] MEDS: PRINIVIL PO SCH (09:07)
[2019-04-12 09:58] LABS: BLOOD TYPE ARTERIAL; HCO3-(ACT) 35.1 mmoll (20.0-26.0); METHB 1.1 % (0.0-1.5); O2(CT) 12.3 mL/dL (15.0-23.0); PO2(98.6) 87 mmHg (60-100); SAMPLE BLOOD; SAO2 99.4 % (95.0-100.0); pH(98.6) 7.46 (7.35-7.45)
[2019-04-12] MEDS: ROCEPHIN 1 GM in NS 50 ML IV SCH (10:08)
[2019-04-12 10:15] LABS: ALLEN TEST NO; MODALITY CANNULA; PCO2(98.6) 54 mmHg (35-45)
--- NOTE | 2019-04-12 10:19 | DISCHARGE SUMMARY ---
ADMISSION DATE: 04/09/2019 DISCHARGE DATE: 04/12/2019 DISCHARGE DIAGNOSES: 1. Acute hypercarbic respiratory failure, improved. 2. Anemia of chronic disease. 3. Seizure disorder. 4. History of noncompliance. 5. Situational anxiety. 6. Tobacco abuse. 7. Chronic pain on Suboxone. CONSULTATIONS: None. PROCEDURES: Chest x-ray done on admission showed no acute abnormality. HOSPITAL COURSE: This is a 58-year-old female, who was brought to the emergency department complaining of disorientation and confusion. The patient's daughter reported that she lives alone and apparently she has been administering her home medications, but she thinks that she is not taking her medications correctly. She was found confused. Family was not sure if that was a seizure episode or something else, so she was brought to the emergency department. In the ER, she was found out to have a very elevated CO2 of 76. So, admitted to the intensive care unit. She was placed on BiPAP. Her CO2 subsequently started getting better. I think from that standpoint she is much more stable. At this point, she is stable. Because she was feeling very weak recently, she is going to be discharged to rehab facility. DISCHARGE PHYSICAL EXAMINATION: Vital Signs: Temperature 98.0 degrees, heart rate 68, respiratory rate 18, blood pressure 154/87, O2 saturation 96% on 4 L nasal cannula. General examination: This is a chronically ill-appearing, 68-year-old female, lying in bed in no acute distress. HEENT: Head is normocephalic, atraumatic. Mucous membranes dry. Neck: No JVD noted. No carotid bruits. No lymphadenopathy. No thyromegaly. Cardiovascular exam: S1, S2 heard. No murmurs, gallops, or rubs. Regular rate and rhythm. Respiratory exam: Decreased breath sounds globally with minimal coarse breath sounds in both pulmonary bases. Patient is not using any accessory muscles or having work of breathing. Abdomen: Soft, nontender to palpation. Bowel sounds present. No organomegaly. Extremities: No clubbing, cyanosis, or edema. Peripheral pulses present in both legs. Neurological exam: The patient is alert and oriented x3. Moves 4 extremities. DISCHARGE DISPOSITION: Patient is going to rehab facility. LIST OF MEDICATIONS: 1. Medrol Dosepak as directed. 2. Subutex 8 mg p.o. twice daily. 3. Metformin 500 mg p.o. daily. 4. Celexa 20 mg one tablet p.o. daily. 5. Prinivil 20 mg one tablet p.o. daily. 6. Atorvastatin 80 mg one tablet p.o. daily. 7. Gabapentin 800 mg one tablet p.o. 3 times per day. 8. Albuterol 2 puffs by inhalation every 4 to 6 hours as needed. 9. Coreg 3.1 21 mg one tablet p.o. b.i.d. 10. Ferrous sulfate 325 mg one tablet p.o. daily. 11. Robaxin 750 mg one tablet p.o. 3 times per day as needed. 12. Spiriva 1 inhalation daily. 13. Symbicort 160/4.5 mcg two inhalations twice daily. 14. Lamictal XR 150 mg one tablet p.o. daily. 15. DuoNeb every 4 hours as needed for shortness of breath. FOLLOWUP: Follow up with his primary care physician 1 week after discharge from rehab facility. TIME DISCHARGING THIS PATIENT: 35 minutes. cc: Papa Villanueva MD [facility]
[2019-04-12 12:17] VITALS: BP 140/81
== END 2019-04-12 13:26 | DRG 189 ==
LOC: P.ED 18:26 → P.ICU 23:54
PROVIDERS: ATTEND Internal Medicine
CPT/HCPCS: 71020; 71046; 80048; 80053; 81001; 82550; 82553; 82805; 83605; 84484; 85025; 85610; 85730; 87088; 93005; 94640; 94660; 94799; A9270; J0456; J0696; J2920; J2930; J7030